=== PATIENT | female | born 1985 | race Caucasian/White ===

== ENCOUNTER 2020-03-15 12:36 | Emergency (ER) | payer MEDICAID, SELFPAY ==
[2020-03-15] VITALS (8 sets, daily range): BP systolic 88–102; BP diastolic 49–71; PULSE 42–67; RESP 12–19; TEMP 36.8; O2SAT 96–100; BMI 18.8
--- NOTE | 2020-03-15 12:49 | ECG_ITS ---
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 Measurements Intervals [place] Rate: 45 P: 52 PA: 120 QRS: 85 QRSD: 85 T: 70 QT: 475 QTc: 414 Interpretive Statements SINUS BRADYCARDIA Compared to ECG 03/05/2018 17:17:50 Sinus rhythm no longer present Electronically Signed On 03-15-2020 21:44:36 CDT by Kathy Lantigua M.D. [id number]
--- NOTE | 2020-03-15 13:09 | ED_ITS ---
HPI - Seizure General: Chief Complaint: Seizure Stated Complaint: SEIZURE Time Seen by Provider: 03/15/20 12:42 History of Present Illness: HPI Narrative: This patient is a 34-year-old female presenting today with a seizure at home. This was witnessed by her f adolfo who is not here with her. She has a history of seizures. She thinks her last one was in December. Since recovering from the seizure today she is got a headache, blurry vision and feels like she is having trouble finding her words. She tells me that she takes gabapentin for her seizures. She has not missed any doses. Her only other medications currently are Suboxone and Xanax. She says she has not run out of anything or stop taking anything. complaint: seizure Onset (ago): unknown Description of Episode: other (Unknown, no witness to the seizure is here) Witnessed: Yes - by Bystander (Mitzi?) Trauma: No Seizure History: Yes Place: Home Possible Precipitating Event: none Associated symptoms: Reports no associated symptoms; Deny chest pain, chills, fever(s) or malaise Review of Systems General: Reports: 10 or more systems reviewed and unremarkable except in HPI and below Const: Denies: fever(s), chills, fatigue or malaise Eyes: Denies: change in vision ENMT: Denies: odynophagia Card: Denies: chest pain or swelling of feet/ankles Resp: Denies: dyspnea, productive cough or non-productive cough GI: Denies: abdominal pain, nausea or vomiting : Denies: flank pain or difficulty voiding Musc: Denies: neck pain or back pain Skin/Breast: Denies: rash Neuro: Denies: headache(s), numbness in extremities or weakness in extremities [place]/Lymph: Denies: easy bruising or easy bleeding PFSH ED PFSH: Medical History Anxiety Depression Seizures Surgical History No pertinent past surgical history Family History (Updated 03/15/20 @ 19:02 by Manisha Martino MD) Mother Psychiatric illness depression Social History (Updated 03/15/20 @ 19:03 by Manisha Martino MD) Smoking and tobacco status: current every day smoker cigarettes Packs smoked per day: 1 Alcohol intake: never Substance/Drug Use: former Household members: significant other Physical Exam Const: COMMON NORMALS: no acute distress, patient oriented x3, no limitations and alert (Sleepy but able to provide history and answer questions.) GENERAL APPEARANCE: cooperative and comfortable HENMT: HEAD & SCALP: normal to inspection FACE & SINUS: normal facial exam Eye: GENERAL EYE: appearance normal, both eyes and all related structures Neck/C-Spine: COMMON NORMALS: supple, no meningeal signs and no JVD Chest: COMMONS NORMALS: normal inspection of the chest Resp: COMMON NORMALS: normal respiratory effort, No use of accessory muscles and clear to auscultation bilaterally AUSCULTATION: clear to auscultation bilaterally Cardio: COMMON NORMALS: no JVD, regular rate, regular rhythm and No murmurs present (Cardio) RATE: regular rate RHYTHM: regular rhythm GI: COMMON NORMALS: Normal to inspection, nondistended, normoactive bowel sounds present, Soft to palpation and non-tender INSPECTION: Yes normal to inspection AUSCULTATION: Yes normoactive bowel sounds PALPATION: Yes Soft to palpation Back/Pelvis: COMMON NORMALS: thoracic and lumbar spine normal to inspection Extremity: COMMON NORMALS: normal to inspection Neuro: COMMON NORMALS: patient oriented x3, moves all extremities, no focal motor deficits and no sensory deficits noted SENSORIUM/ORIENTATION: Yes alert (Sleepy but able to provide history and answer questions.) MENINGEAL SIGNS: Yes no meningeal signs Psych: COMMON NORMALS: mental status grossly normal, cooperative and normal affect Skin: COMMON NORMALS: no rashes or lesions noted and turgor normal GENERAL SKIN EXAM: no rashes or lesions noted and turgor normal Course ED course: Patient continued to complain of not feeling well throughout her ED stay. Her fianc? came and was able to provide further history. She also says that the patient normally can have a seizure and then get up and go to work without any lingering problems or symptoms. When I reviewed the patient's prior records I did not see any evidence of bradycardia or hypotension. This was not responsive to fluids initially and given the patient's feeling terrible and abnormal vital signs I proceeded to consult hospitalist for admission. Dr. Martino was able to find records showing that this bradycardia and hypotension is not that unusual for this patient. She did come and evaluate the patient and offered admission for observation. The patient decided that she wanted to go home and I agree that she is safe to do so. Vital Signs: Vital signs: Vital Signs Temperature 98.2 F 03/15/20 12:48 Pulse Rate 49 L 03/15/20 18:00 Respiratory Rate 19 H 03/15/20 18:00 Blood Pressure 96/49 03/15/20 18:00 Pulse Oximetry 97 03/15/20 18:00 MDM - Seizure Lab Data: Labs: Lab Results 03/15/20 03/15/20 03/15/20 Range/Units 13:13 13:13 13:13 WBC 5.6 (4.0-10.0) 10^3/ uL RBC 4.07 L (4.1-5.3) 10^6/u L Hgb 12.1 (11.5-15.3) g/dL Hct 36.4 L (37.0-47.0) % MCV 89.4 (81-99) fL MCH 29.7 (28.0-34.0) pg MCHC 33.2 (30.0-36.0) g/dL RDW 12.8 (12.1-15.1) % Plt Count 174 (130-400) 10^3/c mm MPV 10.2 (7.4-10.4) fL Neut % (Auto) 40.1 % Lymph % (Auto) 48.6 % [place] % (Auto) 7.0 % Eos % (Auto) 3.8 % Baso % (Auto) 0.5 % Neut # (Auto) 2.22 (1.8-7.7) 10^3/u L Lymph # (Auto) 2.7 (0.8-4.8) 10^3/u L [place] # (Auto) 0.4 (0.2-0.9) 10^3/u L Eos # (Auto) 0.2 (0.0-0.8) 10^3/u L Baso # (Auto) 0.0 (0.0-0.1) 10^3/u L Nucleated RBC % (a uto) 0 % Nucleated RBCs # 0.0 /100WBC Sodium 139 (136-145) mmol/L Potassium 3.6 (3.5-5.1) mmol/L Chloride 107 (98-107) mmol/L Carbon Dioxide 24 (22-29) mmol/L Anion Gap 11.6 (5-19) BUN 11 (6-20) mg/dL Creatinine 0.6 (0.5-0.9) mg/dL GFR Calculation 115.1 (90-130) mL/min Glucose 93 (65-115) mg/dL Calculated Osmolal ity 284 L (285-295) mOsm/k g Lactate 0.7 (0.5-2.2) mmol/L Calcium 8.6 (8.5-10.5) mg/dL Total Bilirubin 0.5 (0.15-1.2) mg/dL AST 23 (0-32) U/L ALT 35 H (0-33) U/L Alkaline Phosphata se 42 (35-105) IU/L Total Protein 6.4 L (6.6-8.7) g/dL Albumin 4.1 (3.5-5.2) g/dL Globulin 2.3 (1.3-4.6) g/dL HCG, Qual (Negative) Urine Color (Yellow) Urine Appearance (CLEAR) Urine pH (5-7) Ur Specific Gravit y (1.005-1.030) Urine Protein (Negative) Urine Glucose (UA) (Normal) Urine Ketones (Negative) Urine Blood (Negative) Urine Nitrate (Negative) Urine Bilirubin (NEGATIVE) Urine Urobilinogen (Negative) mg/dL Ur Leukocyte Ana ase (Negative) Urine RBC (0-2) /hpf Urine WBC (0-5) /hpf Ur Squamous Epith Cells (0-5) Amorphous Sediment Urine Bacteria (NONE) Urine Mucus Salicylates < 0.3 L (3-10) mg/dL Urine Opiates Scre en (Negative) ng/mL Acetaminophen < 5.0 L (10-30) ug/mL Ur Barbiturates Sc reen (Negative) ng/mL Ur Phencyclidine S crn (Negative) ng/mL Ur Amphetamines Sc reen (Negative) ng/mL U Benzodiazepines Scrn (Negative) ng/mL Urine Cocaine Scre en (Negative) ng/mL U Marijuana (THC) Screen (Negative) ng/mL 03/15/20 03/15/20 03/15/20 Range/Units 13:13 13:36 13:36 WBC (4.0-10.0) 10^3/ uL RBC (4.1-5.3) 10^6/u L Hgb (11.5-15.3) g/dL Hct (37.0-47.0) % MCV (81-99) fL MCH (28.0-34.0) pg MCHC (30.0-36.0) g/dL RDW (12.1-15.1) % Plt Count (130-400) 10^3/c mm MPV (7.4-10.4) fL Neut % (Auto) % Lymph % (Auto) % [place] % (Auto) % Eos % (Auto) % Baso % (Auto) % Neut # (Auto) (1.8-7.7) 10^3/u L Lymph # (Auto) (0.8-4.8) 10^3/u L [place] # (Auto) (0.2-0.9) 10^3/u L Eos # (Auto) (0.0-0.8) 10^3/u L Baso # (Auto) (0.0-0.1) 10^3/u L Nucleated RBC % (a uto) % Nucleated RBCs # /100WBC Sodium (136-145) mmol/L Potassium (3.5-5.1) mmol/L Chloride (98-107) mmol/L Carbon Dioxide (22-29) mmol/L Anion Gap (5-19) BUN (6-20) mg/dL Creatinine (0.5-0.9) mg/dL GFR Calculation (90-130) mL/min Glucose (65-115) mg/dL Calculated Osmolal ity (285-295) mOsm/k g Lactate (0.5-2.2) mmol/L Calcium (8.5-10.5) mg/dL Total Bilirubin (0.15-1.2) mg/dL AST (0-32) U/L ALT (0-33) U/L Alkaline Phosphata se (35-105) IU/L Total Protein (6.6-8.7) g/dL Albumin (3.5-5.2) g/dL Globulin (1.3-4.6) g/dL HCG, Qual Negative (Negative) Urine Color Yellow (Yellow) Urine Appearance Clear (CLEAR) Urine pH 6 (5-7) Ur Specific Gravit y 1.015 (1.005-1.030) Urine Protein Neg (Negative) Urine Glucose (UA) Norm (Normal) Urine Ketones Negative (Negative) Urine Blood 2+ H (Negative) Urine Nitrate Negative (Negative) Urine Bilirubin Neg (NEGATIVE) Urine Urobilinogen Norm (Negative) mg/dL Ur Leukocyte Ana ase Negative (Negative) Urine RBC 0-4 H (0-2) /hpf Urine WBC 0-4 H (0-5) /hpf Ur Squamous Epith Cells 0-4 H (0-5) Amorphous Sediment Not Reportable Urine Bacteria Trace (NONE) Urine Mucus Trace Salicylates (3-10) mg/dL Urine Opiates Scre en Negative (Negative) ng/mL Acetaminophen (10-30) ug/mL Ur Barbiturates Sc reen Negative (Negative) ng/mL Ur Phencyclidine S crn Negative (Negative) ng/mL Ur Amphetamines Sc reen Negative (Negative) ng/mL U Benzodiazepines Scrn Positive H (Negative) ng/mL Urine Cocaine Scre en Negative (Negative) ng/mL U Marijuana (THC) Screen Negative (Negative) ng/mL EKG Data^: EKG 1: EKG interpretation date: 03/15/20 EKG interpretation time: 13:12 Interpretation: EKG shows sinus bradycardia with a rate of 45. Normal intervals. Normal axis. No ST changes. Discharge Plan Discharge Patient Disposition: Home Clinical Impression: Generalized seizure, Bradycardia, Acute hypotension Condition: Stable Prescriptions: No Action gabapentin 600 mg Tablet 600 mg PO TID RF: 0 Carafate 1 gram Tablet 1 g PO QID RF: 0 Xanax 0.5 mg Tablet 0.5 mg PO DAILY PRN (Reason: unknown) RF: 0 Suboxone 8-2 mg Film 1 film BUCCAL BID RF: 0 Discharge Orders: Discharge Order (Routine); Ordered 03/15/20 Ordered By: Etelvina Davey Referrals: Wellington Bradley MD [Primary Care Provider] - Discharge Diet: Usual diet Discharge Activity: Resume usual activity Discharge Date/Time: 03/15/20 19:09 Coding Level of Care Code ED Network Diagnostic Support Specialist for Chg Fwd Exam Comprehensive
[2020-03-15 13:26] LABS: Basophils % 0.5 %; Eosinophils # 0.2 10^3/uL (0.0-0.8); Eosinophils % 3.8 %; Hematocrit 36.4 % (37.0-47.0); Hemoglobin 12.1 g/dL (11.5-15.3); Lymphocytes # 2.7 10^3/uL (0.8-4.8); Lymphocytes % 48.6 %; Mean Corpuscular HGB Conc 33.2 g/dL (30.0-36.0); Mean Corpuscular Hemoglobin 29.7 pg (28.0-34.0); Mean Corpuscular Volume 89.4 fL (81-99); Mean Platelet Volume 10.2 fL (7.4-10.4); Monocytes # 0.4 10^3/uL (0.2-0.9); Neutrophils # 2.22 10^3/uL (1.8-7.7); Neutrophils % 40.1 %; Nucleated Red Blood Cells % 0 %; Platelet Count 174 10^3/cmm (130-400); Red Blood Count 4.07 10^6/uL (4.1-5.3); Red Cell Distribution Width 12.8 % (12.1-15.1); White Blood Count 5.6 10^3/uL (4.0-10.0)
[2020-03-15 13:43] LABS: Lactate (Lactic Acid level) 0.7 mmol/L (0.5-2.2)
[2020-03-15 13:44] LABS: Alanine Aminotransferase 35 U/L (0-33); Albumin Level 4.1 g/dL (3.5-5.2); Alkaline Phosphatase 42 IU/L (35-105); Anion Gap 11.6 (5-19); Aspartate Amino Transferase 23 U/L (0-32); Blood Urea Nitrogen 11 mg/dL (6-20); Calcium 8.6 mg/dL (8.5-10.5); Carbon Dioxide 24 mmol/L (22-29); Chloride 107 mmol/L (98-107); Globulin 2.3 g/dL (1.3-4.6); Glomerular Filtration Rate 115.1 mL/min (90-130); Glucose 93 mg/dL (65-115); Osmolality Calculated 284 mOsm/kg (285-295); Potassium 3.6 mmol/L (3.5-5.1); Sodium 139 mmol/L (136-145); Total Bilirubin 0.5 mg/dL (0.15-1.2); Total Protein 6.4 g/dL (6.6-8.7)
[2020-03-15 13:47] LABS: Acetaminophen < 5.0 ug/mL (10-30); Salicylate < 0.3 mg/dL (3-10)
[2020-03-15 13:50] LABS: HCG, Serum Qual Negative (Negative)
[2020-03-15] MEDS: ibuprofen 600 mg Tablet PO (14:25)
[2020-03-15 14:27] LABS: Add Urine Microscopic? YES; Bilirubin Urine Neg (NEGATIVE); Blood Urine 2+ (Negative); Glucose Urine UA Norm (Normal); Ketones Urine Negative (Negative); Leukocyte Esterase Urine Negative (Negative); Nitrate Urine Negative (Negative); Protein Urine Neg (Negative); Specific Gravity, Urine 1.015 (1.005-1.030); Urine Appearance Clear (CLEAR); Urine Color Yellow (Yellow); Urobilinogen Urine Norm (Negative); pH Urine 6 (5-7)
[2020-03-15 14:31] LABS: Add Urine Culture? No; Bacteria Urine TRACE; Mucus Urine TRACE; RBC Urine 0-4 /hpf (0-2); Squamous Epithelial Cell Urine 0-4 (0-5); WBC Urine 0-4 /hpf (0-5)
[2020-03-15] MEDS: sodium chloride 0.9% 1,000 ML 999 ML IV ×2 (15:23→17:53)
--- NOTE | 2020-03-15 16:04 | CTR_ITS ---
PROCEDURE INFORMATION: Exam: CT Head Without Contrast Exam date and time: 03/15/2020 4:07 PM Age: 34 years old Clinical indication: Condition or disease; Convulsions or seizures; Additional info: Seizure, severe headache, left sided weakness TECHNIQUE: Imaging protocol: Computed tomography of the head without contrast. Axial, coronal and sagittal reformatted images were created and reviewed. Radiation optimization: All CT scans at this facility use at least one of these dose optimization techniques: automated exposure control; mA and/or kV adjustment per patient size (includes targeted exams where dose is matched to clinical indication); or iterative reconstruction. COMPARISON: CT head wo con* [id number] 01/15/2019 8:00 PM RADIATION DOSE METRICS: Total DLP (mGy-cm): 724.71 FINDINGS: Brain: No CT evidence of acute intracranial hemorrhage or acute territorial infarction. No significant mass effect or midline shift. Basal cisterns patent. Ventricles: Normal in size and configuration. Bones/joints: No acute osseous abnormality. Sinuses: Minimal ethmoid mucosal thickening. Mastoid air cells: Grossly unremarkable. Soft tissues: Grossly unremarkable. CT/CT head wo con* [id number]: 1[address] No CT evidence of acute intracranial pathology. 2. Additional findings, as above. Radiation Dose CTDIVOL = (mGy): DLP = 724.71 (mGy-cm)
[2020-03-15] MEDS: acetaminophen 500 mg Tablet 1000 MG PO (16:22)
[2020-03-15] MEDS: promethazine 25 mg Tablet PO (16:22)
--- NOTE | 2020-03-15 17:02 | PC.NURSE ---
INFORMED DR. NUNEZ OF BP OF NO FURTHER ORDERS.
[2020-03-15 17:55] LABS: Amphetamines Screen Urine Negative (Negative); Barbiturates Screen Urine Negative (Negative); Benzodiazepines Screen Urine Positive (Negative); Cocaine Screen Urine Negative (Negative); Opiate Screen Urine Negative (Negative); PCP Screen Urine Negative (Negative); THC Screen Urine Negative (Negative)
--- NOTE | 2020-03-15 18:13 | PM.HP ---
Providers/Chief Complaint Admitting Physician: Manisha Martino MD Primary Care Provider: Wellington Bradley MD Chief Complaint: SEIZURE History of Present Illness Tricia Guerra is a 34 year old female with past medical history of seizure disorder, depression/anxiety, methamphetamine abuse, presents accompanied by significant other due to seizure-like activity earlier this morning around 4 AM upon awakening. This was witnessed by girlfriend who is currently at bedside. Patient defers to significant other when asked events that brought her to the ER. Per girlfriend patient was getting up to go to the bathroom when she suddenly stiffened, slowly slumped to the floor, was relatively unresponsive for about 30 to 45 seconds and when she came to was disoriented, extremely slow to respond, unaware of her surroundings, and seemed to be having visual hallucinations. Per girlfriend this has not happened in the past. Girlfriend called patient's sister who is a voluntary side door man who recommended checking her vital signs. Patient was noted to be hypotensive and bradycardic, exact numbers are unknown and she was brought to the ER for further evaluation. Patient states that her last seizure was approximately 2 months ago. It seems that she lost her dog sometime yesterday due to a traumatic accident which may have possibly triggered the seizure today. She has known about her seizures for about 5 years, had been noted to be on Depakote on previous admission which patient states was discontinued for an unknown reason. Her previously been tried on Keppra but due to altered mental status this was discontinued. States that she takes gabapentin for her seizures. Whenever she does have a seizure-like episode episode is very brief, typically consist of stiffening of her limbs, very short postictal and patient is typically back to her normal self in about 30 minutes. While here patient has been hypotensive and bradycardic, has received 1 L normal saline bolus with systolic blood pressure in the 90s. As she has been in the ER for the past several hours she has been gradually returning to her normal self per her admission. Work-up so far has been negative including a normal white count, normal hemoglobin, normal electrolytes, normal renal function. She has not had any further seizure-like activity while here. Thorough review of medical record reveals that she has been noted to be bradycardic and hypotensive in the past and has had cardiac work-up in the past as well including echo, treadmill stress testing, event monitor all of which were unremarkable. She is not on any beta-blockers currently or any oral antihypertensives. She denies having taken any unprescribed medications or illicit substances. Approximately an hour after my evaluation in the ER patient states that she would like to go home. Realizes that she will be leaving AGAINST MEDICAL ADVICE and even after my discussion of possible risks of leaving prematurely she decides to go home, significant other at bedside during this discussion. Counseled on need to seek medical attention immediately should symptoms particularly in terms of seizure-like activity recur. Also recommended close follow-up with her primary care provider. Indra prater discussed potential follow-up with neurology as an outpatient to determine appropriate antiepileptic medication. Review of Systems Const: Reports: fatigue; Denies: fever(s) or chills Eyes: Denies: change in vision ENMT: Reports: dry mouth Card: Denies: chest pain, swelling of feet/ankles or lightheadedness Resp: Denies: dyspnea GI: Denies: abdominal pain, nausea, vomiting, hematemesis or hematochezia : Denies: difficulty voiding, dysuria or hematuria Musc: Denies: back pain Skin/Breast: Denies: rash Neuro: Reports: seizure-like activity (at home); Denies: numbness in extremities, weakness in extremities or difficulty walking Psych: Denies: anxiety Medications/Allergies Home Medications Medication Instructions Recorded Confirmed Last Taken Type alprazolam [Xanax] 0.5 mg PO DAILY PRN 03/15/20 03/15/20 03/14/20 History buprenorphine-naloxone [Suboxone] 1 film BUCCAL BID 03/15/20 03/15/20 03/14/20 History gabapentin 600 mg PO TID 03/15/20 03/15/20 03/15/20 08:00 History sucralfate [Carafate] 1 g PO QID 03/15/20 03/15/20 03/14/20 History Allergies Allergy/AdvReac Type Severity Reaction Status Date / Time morphine Allergy Unknown Verified 03/15/20 13:03 ondansetron [From Zofran] Allergy Unknown Verified 03/15/20 13:03 PFSH Acute PFSH: Medical History Anxiety Depression Seizures Surgical History No pertinent past surgical history Family History (Updated 03/15/20 @ 19:02 by Manisha Martino MD) Mother Psychiatric illness depression Social History (Updated 03/15/20 @ 19:03 by Manisha Martino MD) Smoking and tobacco status: current every day smoker cigarettes Packs smoked per day: 1 Alcohol intake: never Substance/Drug Use: former Household members: significant other Vitals/I&O/Wt Last Vital Signs Temp 98.2 F 03/15/20 12:48 Pulse 49 L 03/15/20 18:00 Resp 19 H 03/15/20 18:00 BP 96/49 03/15/20 18:00 Pulse Ox 97 03/15/20 18:00 Weight last 48 hrs Weight 49.895 kg Physical Exam Const: COMMON NORMALS: no acute distress, patient oriented x3 and alert GENERAL APPEARANCE: cooperative and comfortable NUTRITIONAL APPEARANCE: thin ORIENTATION/CONSCIOUSNESS: Yes awake HENMT: COMMON NORMALS: normocephalic, atraumatic, hearing grossly normal bilaterally and moist oral mucous membranes HEAD & SCALP: normocephalic and atraumatic TEETH & GINGIVA: Yes edentulous Eye: COMMON NORMALS: Equal, round and reactive pupils present, EOMs intact bilaterally and conjunctivae normal CONJUNCTIVA: Yes conjunctivae normal PUPIL: Yes Equal, round and reactive pupils present Neck/C-Spine: COMMON NORMALS: full ROM GENERAL: Yes normal visual inspection and Yes trachea midline Resp: COMMON NORMALS: normal respiratory effort, No retractions, No use of accessory muscles and clear to auscultation bilaterally EFFORT & INSPECTION: Yes able to speak in complete sentences, Yes symmetric chest movement and No tachypneic AUSCULTATION: clear to auscultation bilaterally OTHER: -on RA Cardio: COMMON NORMALS: regular rhythm, S1 normal heart sound present, S2 normal heart sound present and No murmurs present (Cardio) RATE: bradycardic RHYTHM: regular rhythm HEART SOUNDS: S1 normal heart sound present and S2 normal heart sound present GI: COMMON NORMALS: Normal to inspection, nondistended, normoactive bowel sounds present, Soft to palpation and non-tender PALPATION: Yes Soft to palpation Extremity: COMMON NORMALS: normal to inspection, full ROM and no clubbing, cyanosis or edema; negative for no pedal edema Neuro: COMMON NORMALS: patient oriented x3, moves all extremities, no focal motor deficits and no sensory deficits noted Psych: COMMON NORMALS: mental status grossly normal, Normal thought process present, cooperative, normal affect and speech normal SPEECH: Yes normal speech THOUGHT PROCESS: Normal thought process present Skin: COMMON NORMALS: no rashes or lesions noted, no jaundice, no petechiae and no mottling GENERAL SKIN EXAM: no rashes or lesions noted Data : 03/15/20 13:13 03/15/20 13:13 A&P Assessment and plan (1) Generalized seizure: Status: Acute (2) Bradycardia: Status: Acute (3) Acute hypotension: Status: Acute Additional A&P Information Patient was evaluated in the ER with significant other at bedside. Has been noted to be hypotensive with systolic blood pressures as low as 80s and bradycardic in the 40-50 range. She had been hydrated with at least 1.5 L normal saline with noted improvement in her blood pressure. Thorough review of medical record including review of old [facility] hospital records shows that she has been bradycardic and hypotensive in the past. Has had cardiac work-up including Holter monitoring showing sinus rhythm as well as treadmill stress testing which was negative for any significant coronary ischemia, both done in 2013. She has had prior admissions for mental health related issues including SI. Urine drug screen is currently pending, labs are unremarkable including normal hemoglobin, normal electrolytes and normal renal function, no evidence of infection, blood pressure has improved with hydration. Per both patient and significant other at bedside she is acting more like her normal self. Initial plan was for overnight observation to ensure that she has no further seizure-like episodes and monitor hemodynamic status. However about an hour after my initial evaluation in the ER patient reported that she would like to return home, will be leaving AGAINST MEDICAL ADVICE. Returned and counseled patient on need for overnight observation, significant other at bedside, both verbalized understanding but insisted on going home. Counseled on need to seek medical attention immediately should any other seizure-like activity occur. They state that they have blood pressure monitor at home, counseled on need to monitor blood pressure particularly if patient is feeling poorly. Also encourage close follow-up with primary care provider. I have already discussed potential need for neurology evaluation as an outpatient as she has had prior seizure-like activity. She reports that she was unable to tolerate Keppra in the past as it made her crazy, has previously been on Depakote but does not remember why she was taken off of it. States that she takes gabapentin due to seizures. Admits to being on Suboxone due to history of opiate use, documented history of methamphetamine abuse. States that she has been abstinent x 3 months. Attestations Medical Necessity Statement*: Patient left ER AMA Time Spent in Patient Care: Greater than 35 minutes (>than 50% of time spent in counselling and/or direct pt care on unit). Coding Level of Care Code Acute Pie Filling Mixer for Eveling Abdid Diagnoses Generalized seizure R56.9 Bradycardia R00.1 Acute hypotension I95.9
--- NOTE | 2020-03-15 18:45 | PC.NURSE ---
REPORT [facility]
--- NOTE | 2020-03-15 18:54 | PC.NURSE ---
WHILE AT BEDSIDE PT STATES GIRLFRIEND STATES, I DON'T THINK WE WANT TO STAY . ASKED THE PT IF SHE WANTED TO STAY SHE STATED, NO . INFORMED DR. INTERIANO. DR. INTERIANO PRESENTED TO BEDSIDE. VO WITH READBACK FOR SD
[2020-03-16] LABS: Valproic Acid Level 2.8 ug/mL (50-100)
[2020-03-16 01:29] LABS: Lithium 0.1 mmol/L (0.6-1.2)
== END 2020-03-15 19:09 | disposition home or self-care (01) ==
LOC: ER 13:13 → MEDSURG 18:53 → ER 18:54
PROVIDERS: Emergency Provider Emergency Medicine; PCP Family Medicine
DX: G40.89 Other seizures (principal); R00.1 Bradycardia, unspecified; I95.9 Hypotension, unspecified; F17.210 Nicotine dependence, cigarettes, uncomplicated
CPT/HCPCS: 12345; 36415; 70450; 80053; 80164; 80178; 80306; 80307; 81001; 83605; 84703; 85025; 93005; 96360; 96361; 99284; J7030; Q0169

== ENCOUNTER 2020-08-21 16:39 | Emergency (ER) | payer MEDICAID, SELFPAY ==
[2020-08-21 16:51] VITALS: BP 98/65; PULSE 65; RESP 14; TEMP 36.6; O2SAT 97; BMI 24.9
--- NOTE | 2020-08-21 18:22 | XRR_ITS ---
PROCEDURE INFORMATION: Exam: XR Chest, 1 View Exam date and time: 08/21/2020 6:34 PM Age: 35 years old Clinical indication: Dyspnea TECHNIQUE: Imaging protocol: XR of the chest Views: 1 view. COMPARISON: CR Chest 1 [place] [id number] 01/15/2019 8:05 PM FINDINGS: Lungs: Unremarkable. No consolidation. Pleural space: Unremarkable. No pleural effusion. No pneumothorax. Heart/Mediastinum: Unremarkable. No cardiomegaly. Bones/joints: Unremarkable. XR/XR chest 1V portable [id number] IMPRESSION: No acute findings.
--- NOTE | 2020-08-21 18:27 | CTR_ITS ---
PROCEDURE INFORMATION: Exam: CT Head Without Contrast Exam date and time: 08/21/2020 6:34 PM Age: 35 years old Clinical indication: Condition or disease; Convulsions or seizures; Unspecified; Additional info: Seizure TECHNIQUE: Imaging protocol: Computed tomography of the head without contrast. Radiation optimization: All CT scans at this facility use at least one of these dose optimization techniques: automated exposure control; mA and/or kV adjustment per patient size (includes targeted exams where dose is matched to clinical indication); or iterative reconstruction. COMPARISON: CT head wo con* [id number] 03/15/2020 4:23 PM RADIATION DOSE METRICS: Total DLP (mGy-cm): 745.32 FINDINGS: Brain: Normal. No hemorrhage. Unremarkable white matter. No mass effect. Cerebral ventricles: No ventriculomegaly. Bones/joints: Unremarkable. No acute fracture. Paranasal sinuses: Visualized sinuses are unremarkable. No fluid levels. Mastoid air cells: Visualized mastoid air cells are well aerated. Soft tissues: Metallic jewelry in the left frontal soft tissues. CT/CT head wo con* [id number] IMPRESSION: No acute findings. Radiation Dose CTDIVOL = (mGy): DLP = 745.32 (mGy-cm)
[2020-08-21 18:45] LABS: Basophils % 0.5 %; Eosinophils # 0.1 10^3/uL (0.0-0.8); Eosinophils % 2.3 %; Hematocrit 40.3 % (37.0-47.0); Hemoglobin 13.4 g/dL (11.5-15.3); Lymphocytes # 3.1 10^3/uL (0.8-4.8); Lymphocytes % 50.7 %; Mean Corpuscular HGB Conc 33.3 g/dL (30.0-36.0); Mean Corpuscular Hemoglobin 29.6 pg (28.0-34.0); Mean Platelet Volume 9.5 fL (7.4-10.4); Monocytes # 0.4 10^3/uL (0.2-0.9); Monocytes % 7.1 %; Neutrophils # 2.38 10^3/uL (1.8-7.7); Neutrophils % 39.2 %; Nucleated Red Blood Cells % 0 %; Platelet Count 244 10^3/cmm (130-400); Red Blood Count 4.53 10^6/uL (4.1-5.3); Red Cell Distribution Width 12.4 % (12.1-15.1); White Blood Count 6.1 10^3/uL (4.0-10.0)
--- NOTE | 2020-08-21 18:55 | W.ED.HA ---
HPI - Headache General: Chief Complaint: Headache Stated Complaint: SEIZURE @ AROUND 1530, HEADACHE Time Seen by Provider: 08/21/20 18:02 History of Present Illness: HPI Narrative: The patient is a 35-year-old female who comes to the ER complaining of headache and right eye pain. She has a history of seizures. She says she does not have them very often and has tried several medications but has adverse reactions to all of them. Some make her hallucinate or have a slightly allergic reaction to others but she is not sure which ones. She says she takes gabapentin for her seizures. She is not very responsive to questioning and prefers her partner answer questions. Her partner says that she was at home today and began to develop a headache which sometimes means she is about to seize and she began to shake her arms. This is not typical of her normal seizures normally she has a generalized tonic-clonic where her entire body stiffens so she is not sure what happened today but the patient continues to have a headache, right eye pain and tingling in her hands. Sensation is intact. MD elicited complaint: headache Associated symptoms: Deny chest pain, confusion or rash Review of Systems General: Reports: 10 or more systems reviewed and unremarkable except in HPI and below Const: Denies: fatigue Eyes: Denies: change in vision, blurry vision or eye redness ENMT: Denies: throat pain, swelling of lips/tongue, ear or mastoid pain or nasal congestion Card: Denies: chest pain, palpitations, irregular heart rhythm, edema, dyspnea on exertion or orthopnea Resp: Denies: dyspnea, productive cough or non-productive cough GI: Denies: abdominal pain, diarrhea or GI cramping : Denies: flank pain, difficulty voiding, urinary frequency or urinary urgency Musc: Denies: neck pain, back pain, extremity pain, joint pain, joint redness, limited range of motion or muscle weakness Skin/Breast: Denies: rash, pruritus, erythema, skin pain or skin tenderness Neuro: Reports: headache(s); Denies: numbness in extremities, weakness in extremities, sensory changes, difficulty walking, dizziness, confusion or Slurred speech present Psych: Denies: anxiety or depression Endo: Denies: polyuria All/Imm: Denies: urticaria, throat swelling or tongue swelling PFSH ED PFSH: Medical History (Updated 08/21/20 @ 20:37 by Devaughn Wagner MD) Anxiety Depression Seizures Surgical History No pertinent past surgical history Family History (Updated 03/15/20 @ 19:02 by Manisha Martino MD) Mother Psychiatric illness depression Social History (Updated 03/15/20 @ 19:03 by Manisha Martino MD) Smoking and tobacco status: current every day smoker cigarettes Packs smoked per day: 1 Alcohol intake: never Household members: significant other Physical Exam Const: COMMON NORMALS: no acute distress, average body habitus, patient oriented x3, no limitations, healthy appearing, alert and well nourished GENERAL APPEARANCE: cooperative, comfortable, well kempt and well developed ORIENTATION/CONSCIOUSNESS: Yes awake, Yes oriented to person, Yes oriented to place and Yes oriented to time HENMT: COMMON NORMALS: normocephalic, external ears normal and Normal external nose present HEAD & SCALP: normal to inspection and normocephalic NOSE: Normal external nose present EXTERNAL EAR: Yes external ears normal MOUTH: Normal oral and palatal mucosa present THROAT: posterior oropharynx normal Eye: COMMON NORMALS: Equal, round and reactive pupils present and EOMs intact bilaterally GENERAL EYE: appearance normal, both eyes and all related structures PUPIL: Yes Equal, round and reactive pupils present Neck/C-Spine: COMMON NORMALS: full ROM, no lymphadenopathy, no meningeal signs and no JVD GENERAL: Yes normal visual inspection Lymph: LYMPHATIC: no lymphadenopathy noted Chest: COMMONS NORMALS: normal inspection of the chest and normal palpation of entire chest wall Resp: COMMON NORMALS: normal respiratory effort, No retractions, No use of accessory muscles, clear to auscultation bilaterally and percussion normal EFFORT & INSPECTION: Yes able to speak in complete sentences AUSCULTATION: clear to auscultation bilaterally PERCUSSION: percussion normal Cardio: COMMON NORMALS: no JVD, regular rate, regular rhythm, S1 normal heart sound present, S2 normal heart sound present and Peripheral pulses 2+ throughout RATE: regular rate RHYTHM: regular rhythm HEART SOUNDS: S1 normal heart sound present and S2 normal heart sound present PERIPHERAL PULSES: Peripheral pulses 2+ throughout GI: COMMON NORMALS: Normal to inspection, nondistended, normoactive bowel sounds present, Soft to palpation, non-tender and no masses INSPECTION: Yes normal to inspection PALPATION: Yes Soft to palpation : COMMON NORMALS: Yes no CVA tenderness BLADDER/KIDNEY EXAM: Yes no CVA tenderness Back/Pelvis: COMMON NORMALS: no CVA tenderness, thoracic and lumbar spine normal to inspection, no thoracic nor lumbar tenderness and thoraco-lumbar ROM normal Extremity: COMMON NORMALS: normal to inspection, full ROM, capillary refill normal, no joint enlargement and no pedal edema GENERAL: Yes normal exam except as noted Neuro: COMMON NORMALS: patient oriented x3, CN's II-XII intact bilaterally, moves all extremities, no focal motor deficits, no sensory deficits noted and gait normal SENSORIUM/ORIENTATION: Yes alert, Yes oriented to person, Yes oriented to place and Yes oriented to time MENINGEAL SIGNS: Yes no meningeal signs Psych: COMMON NORMALS: mental status grossly normal, Normal thought process present, cooperative, normal affect and speech normal APPEARANCE: Yes well kempt ATTITUDE: Yes calm SPEECH: Yes normal speech THOUGHT PROCESS: Normal thought process present Skin: COMMON NORMALS: no rashes or lesions noted GENERAL SKIN EXAM: no rashes or lesions noted Course Vital Signs: Vital signs: Vital Signs Temperature 97.8 F 08/21/20 16:51 Pulse Rate 62 08/21/20 19:55 Respiratory Rate 17 08/21/20 19:55 Blood Pressure 112/69 08/21/20 19:55 Pulse Oximetry 98 08/21/20 19:55 MDM - Headache MDM Narrative: Medical decision making narrative: Patient is resting comfortably in the ER and improved some after medication. She feels comfortable to sleep it off at home. Return to the ER with worsening symptoms. Follow-up with Dr. Pacheco within a week. Lab Data: Labs: Lab Results 08/21/20 08/21/20 08/21/20 Range/Units 18:42 18:42 18:42 WBC 6.1 (4.0-10.0) 10^3/ uL RBC 4.53 (4.1-5.3) 10^6/u L Hgb 13.4 (11.5-15.3) g/dL Hct 40.3 (37.0-47.0) % MCV 89.0 (81-99) fL MCH 29.6 (28.0-34.0) pg MCHC 33.3 (30.0-36.0) g/dL RDW 12.4 (12.1-15.1) % Plt Count 244 (130-400) 10^3/c mm MPV 9.5 (7.4-10.4) fL Neut % (Auto) 39.2 % Lymph % (Auto) 50.7 % [place] % (Auto) 7.1 % Eos % (Auto) 2.3 % Baso % (Auto) 0.5 % Neut # (Auto) 2.38 (1.8-7.7) 10^3/u L Lymph # (Auto) 3.1 (0.8-4.8) 10^3/u L [place] # (Auto) 0.4 (0.2-0.9) 10^3/u L Eos # (Auto) 0.1 (0.0-0.8) 10^3/u L Baso # (Auto) 0.0 (0.0-0.1) 10^3/u L Nucleated RBC % (a uto) 0 % Nucleated RBCs # 0.0 /100WBC Sodium 140 (136-145) mmol/L Potassium 4.0 (3.5-5.1) mmol/L Chloride 105 (98-107) mmol/L Carbon Dioxide 28 (22-29) mmol/L Anion Gap 11.0 (5-19) BUN 19 (6-20) mg/dL Creatinine 0.9 (0.5-0.9) mg/dL GFR Calculation 71.7 L (90-130) mL/min Glucose 91 (65-115) mg/dL Calculated Osmolal ity 292 (285-295) mOsm/k g Calcium 9.4 (8.5-10.5) mg/dL Total Bilirubin 0.3 (0.15-1.2) mg/dL AST 17 (0-32) U/L ALT 13 (0-33) U/L Alkaline Phosphata se 54 (35-105) IU/L Creatine Kinase 95 (26-192) U/L Total Protein 6.5 L (6.6-8.7) g/dL Albumin 4.0 (3.5-5.2) g/dL Globulin 2.5 (1.3-4.6) g/dL HCG, Qual Negative (Negative) Urine Color (Yellow) Urine Appearance (CLEAR) Urine pH (5-7) Ur Specific Gravit y (1.005-1.030) Urine Protein (Negative) Urine Glucose (UA) (Normal) Urine Ketones (Negative) Urine Blood (Negative) Urine Nitrate (Negative) Urine Bilirubin (Negative) Urine Urobilinogen (Negative) mg/dL Ur Leukocyte Ana ase (Negative) Urine RBC (0-2) /hpf Urine WBC (0-5) /hpf Ur Squamous Epith Cells (0-5) /hpf Amorphous Sediment Urine Bacteria (NONE) /hpf Urine Opiates Scre en (Negative) ng/mL Ur Barbiturates Sc reen (Negative) ng/mL Ur Phencyclidine S crn (Negative) ng/mL Ur Amphetamines Sc reen (Negative) ng/mL U Benzodiazepines Scrn (Negative) ng/mL Urine Cocaine Scre en (Negative) ng/mL U Marijuana (THC) Screen (Negative) ng/mL Ethyl Alcohol < 10 (0-10) mg/dL 08/21/20 08/21/20 Range/Units 19:13 19:13 WBC (4.0-10.0) 10^3/ uL RBC (4.1-5.3) 10^6/u L Hgb (11.5-15.3) g/dL Hct (37.0-47.0) % MCV (81-99) fL MCH (28.0-34.0) pg MCHC (30.0-36.0) g/dL RDW (12.1-15.1) % Plt Count (130-400) 10^3/c mm MPV (7.4-10.4) fL Neut % (Auto) % Lymph % (Auto) % [place] % (Auto) % Eos % (Auto) % Baso % (Auto) % Neut # (Auto) (1.8-7.7) 10^3/u L Lymph # (Auto) (0.8-4.8) 10^3/u L [place] # (Auto) (0.2-0.9) 10^3/u L Eos # (Auto) (0.0-0.8) 10^3/u L Baso # (Auto) (0.0-0.1) 10^3/u L Nucleated RBC % (a uto) % Nucleated RBCs # /100WBC Sodium (136-145) mmol/L Potassium (3.5-5.1) mmol/L Chloride (98-107) mmol/L Carbon Dioxide (22-29) mmol/L Anion Gap (5-19) BUN (6-20) mg/dL Creatinine (0.5-0.9) mg/dL GFR Calculation (90-130) mL/min Glucose (65-115) mg/dL Calculated Osmolal ity (285-295) mOsm/k g Calcium (8.5-10.5) mg/dL Total Bilirubin (0.15-1.2) mg/dL AST (0-32) U/L ALT (0-33) U/L Alkaline Phosphata se (35-105) IU/L Creatine Kinase (26-192) U/L Total Protein (6.6-8.7) g/dL Albumin (3.5-5.2) g/dL Globulin (1.3-4.6) g/dL HCG, Qual (Negative) Urine Color Yellow (Yellow) Urine Appearance Clear (CLEAR) Urine pH 6 (5-7) Ur Specific Gravit y 1.015 (1.005-1.030) Urine Protein Neg (Negative) Urine Glucose (UA) Norm (Normal) Urine Ketones Negative (Negative) Urine Blood 3+ H (Negative) Urine Nitrate Negative (Negative) Urine Bilirubin Neg (Negative) Urine Urobilinogen Norm (Negative) mg/dL Ur Leukocyte Ana ase Negative (Negative) Urine RBC 5-10 H (0-2) /hpf Urine WBC 0-4 H (0-5) /hpf Ur Squamous Epith Cells 15-25 H (0-5) /hpf Amorphous Sediment Not Reportable Urine Bacteria Trace (NONE) /hpf Urine Opiates Scre en Negative (Negative) ng/mL Ur Barbiturates Sc reen Negative (Negative) ng/mL Ur Phencyclidine S crn Negative (Negative) ng/mL Ur Amphetamines Sc reen Negative (Negative) ng/mL U Benzodiazepines Scrn Positive H (Negative) ng/mL Urine Cocaine Scre en Negative (Negative) ng/mL U Marijuana (THC) Screen Negative (Negative) ng/mL Ethyl Alcohol (0-10) mg/dL Discharge Plan Discharge Patient Disposition: Home Clinical Impression: Migraine Condition: Stable Prescriptions: No Action gabapentin 600 mg Tablet 600 mg PO TID RF: 0 Carafate 1 gram Tablet 1 g PO QID RF: 0 Xanax 0.5 mg Tablet 0.5 mg PO DAILY PRN (Reason: unknown) RF: 0 Suboxone 8-2 mg Film 1 film BUCCAL BID RF: 0 Discharge Orders: Discharge ED (Routine); Ordered 08/21/20 Ordered By: Devaughn Wagner Referrals: Wellington Bradley MD [Primary Care Provider] - Discharge Diet: Advance as tolerated Discharge Activity: Resume usual activity Patient Instructions: Acute Headache (ED) Activity Restrictions/Additional Instructions: You likely have a migraine. Your symptoms are not typical of a seizure and your labs and imaging are normal. Please go home and rest and return to the ER with worsening symptoms otherwise follow-up with Dr. Pacheco as an outpatient. Coding Level of Care Code ED Waste Machine Offbearer for Kandi Caballero Exam Comprehensive
[2020-08-21 19:04] LABS: Alanine Aminotransferase 13 U/L (0-33); Alkaline Phosphatase 54 IU/L (35-105); Aspartate Amino Transferase 17 U/L (0-32); Blood Urea Nitrogen 19 mg/dL (6-20); Calcium 9.4 mg/dL (8.5-10.5); Carbon Dioxide 28 mmol/L (22-29); Chloride 105 mmol/L (98-107); Creatine Phosphokinase 95 U/L (26-192); Globulin 2.5 g/dL (1.3-4.6); Glomerular Filtration Rate 71.7 mL/min (90-130); Glucose 91 mg/dL (65-115); HCG, Serum Qual Negative (Negative); Osmolality Calculated 292 mOsm/kg (285-295); Sodium 140 mmol/L (136-145); Total Bilirubin 0.3 mg/dL (0.15-1.2); Total Protein 6.5 g/dL (6.6-8.7)
[2020-08-21 19:08] LABS: Alcohol Level < 10 mg/dL (0-10)
[2020-08-21] MEDS: ketorolac 30 mg/mL INJ 15 MG IVP (19:09)
[2020-08-21] MEDS: diphenhydrAMINE 50 mg/mL SDV 1mL 25 MG IVP (19:09)
[2020-08-21] MEDS: sodium chloride 0.9% 1,000 ML 999 ML IV (19:09)
[2020-08-21 19:28] LABS: Add Urine Microscopic? YES; Bilirubin Urine Neg (Negative); Blood Urine 3+ (Negative); Glucose Urine UA Norm (Normal); Ketones Urine Negative (Negative); Leukocyte Esterase Urine Negative (Negative); Nitrate Urine Negative (Negative); Protein Urine Neg (Negative); Specific Gravity, Urine 1.015 (1.005-1.030); Urine Appearance Clear (CLEAR); Urine Color Yellow (Yellow); Urobilinogen Urine Norm (Negative); pH Urine 6 (5-7)
[2020-08-21 19:34] LABS: Add Urine Culture? No; Bacteria Urine TRACE /hpf; Squamous Epithelial Cell Urine 15-25 /hpf (0-5); WBC Urine 0-4 /hpf (0-5)
[2020-08-21 19:37] LABS: Amphetamines Screen Urine Negative (Negative); Barbiturates Screen Urine Negative (Negative); Benzodiazepines Screen Urine Positive (Negative); Cocaine Screen Urine Negative (Negative); Opiate Screen Urine Negative (Negative); PCP Screen Urine Negative (Negative); THC Screen Urine Negative (Negative)
[2020-08-21 19:55] VITALS: BP 112/69; PULSE 62; RESP 17; O2SAT 98
[2020-08-21 21:29] VITALS: PULSE 64; RESP 16; O2SAT 97
== END 2020-08-21 21:30 | disposition home or self-care (01) ==
PROVIDERS: Emergency Provider Family Medicine; PCP Family Medicine
DX: G43.909 Migraine, unspecified, not intractable, without status migrainosus (principal); F17.210 Nicotine dependence, cigarettes, uncomplicated
CPT/HCPCS: 12345; 70450; 71045; 80053; 80306; 80307; 81001; 82550; 84703; 85025; 96361; 96374; 96375; 99283; J1200; J1885; J7030

== ENCOUNTER 2021-06-28 16:48 | Emergency (ER) | payer MEDICAID, SELFPAY ==
[2021-06-28 17:14] VITALS: BP 107/68; PULSE 66; RESP 18; TEMP 36.7; O2SAT 97; BMI 25.7
--- NOTE | 2021-06-28 19:26 | ED_ITS ---
HPI - Extremity Problem General: Chief complaint: Extremity Injury, Lower Stated complaint: KNEE & GROIN INJURY Time Seen by Provider: 06/28/21 17:10 History of Present Illness: HPI Narrative: Patient is a 36-year-old female comes to the ED with a groin injury. Injury occurred yesterday. She says she was using a chain saw and it kicked back and the handle on but of the chainsaw struck her groin region. Denies any laceration or injury from chainsaw blade. D enies any laceration to more external genitalia. She was having some pain and soreness in her groin afterwards and then approximately an hour later started having some light vaginal bleeding. It then progressed to a little more heavy bleeding through the night and into today. Patient says she has not had a period in 3 years. Over the past day she has only went through a couple pads. She says she feels sore down in her genital region and sitting down is uncomfortable. She rates her pain a 5 out of 10. Endorses some dysuria since injury but denies any other symptoms. Associated symptoms: Deny chest pain, fever(s) or rash Review of Systems Const: Denies: fever(s), chills or fatigue Eyes: Denies: change in vision or eye discomfort ENMT: Denies: throat pain, odynophagia, nasal discharge or nasal congestion Card: Denies: chest pain, palpitations, edema, swelling of feet/ankles, dyspnea on exertion or orthopnea Resp: Denies: dyspnea, productive cough or non-productive cough GI: Denies: abdominal pain, nausea, vomiting, diarrhea, constipation or hematochezia : Reports: dysuria, vaginal bleeding and pelvic pain (trauma injury causing pain); Denies: flank pain or hematuria Musc: Denies: neck pain, back pain or extremity swelling Skin/Breast: Denies: rash or new lesions Neuro: Denies: headache(s), numbness in extremities or weakness in extremities PFSH ED PFSH: Medical History Anxiety Depression Seizures Surgical History No pertinent past surgical history Family History Mother Psychiatric illness depression Social History Smoking and tobacco status: current every day smoker cigarettes Packs smoked per day: 1 Alcohol intake: never Household members: significant other Physical Exam Const: COMMON NORMALS: no acute distress, patient oriented x3 and alert GENERAL APPEARANCE: cooperative and comfortable HENMT: COMMON NORMALS: normocephalic HEAD & SCALP: normocephalic MOUTH: Normal oral and palatal mucosa present THROAT: posterior oropharynx normal and uvula midline Neck/C-Spine: COMMON NORMALS: supple GENERAL: Yes normal visual inspection Resp: COMMON NORMALS: normal respiratory effort, No retractions, No use of accessory muscles and clear to auscultation bilaterally AUSCULTATION: clear to auscultation bilaterally Cardio: COMMON NORMALS: regular rate, regular rhythm, S1 normal heart sound present, S2 normal heart sound present, No gallops present (Cardio), No clicks present (Cardio), No murmurs present (Cardio) and Peripheral pulses 2+ throughout RATE: regular rate RHYTHM: regular rhythm HEART SOUNDS: S1 normal heart sound present and S2 normal heart sound present PERIPHERAL PULSES: Peripheral pulses 2+ throughout GI: COMMON NORMALS: Normal to inspection, nondistended, normoactive bowel sounds present, Soft to palpation, non-tender and no masses PALPATION: Yes Soft to palpation : COMMON NORMALS: Yes no CVA tenderness BLADDER/KIDNEY EXAM: Yes no CVA tenderness OTHER: I offered to do a pelvic exam on patient. She states she has PTSD and would feel more comfortable having her primary care doctor perform pelvic. Back/Pelvis: COMMON NORMALS: no CVA tenderness Extremity: COMMON NORMALS: normal to inspection Neuro: COMMON NORMALS: patient oriented x3 and moves all extremities SENSORIUM/ORIENTATION: Yes alert Skin: GENERAL SKIN EXAM: dry skin Course Reevaluation(s): Reevaluation #1: Patient says her pain is doing better and vaginal bleeding is now very light. Patient says she has some PTSD and would prefer not to get a pelvic exam here today it would like to do it at her primary care doctor's office. Since patient is stable, vaginal bleeding is very light and CT scan was good, I told patient I am good with her following up with her PCP in the next 2 to 3 days to be reexamined. Patient felt more comfortable with this option and she agreed with plan. Time: 21:36 Vital Signs: Vital signs: Vital Signs Temperature 98.0 F 06/28/21 17:14 Pulse Rate 78 06/28/21 22:15 Respiratory Rate 18 06/28/21 22:15 Blood Pressure 107/67 06/28/21 22:15 Pulse Oximetry 98 06/28/21 22:15 MDM - Extremity (Nontraumatic) MDM Narrative: Medical decision making narrative: Patient is a 36-year-old female comes to the ED after injury to the pelvic region. Injury occurred yesterday. Patient was using a chain saw and it kicked back causing the handle of the chainsaw to hit pelvic region. The chainsaw blade did not contact patient and she had no cuts or lacerations. She reports having some pain in her groin/pelvic region. She started developing some vaginal bleeding. Vaginal bleeding was heavier last night but has slowly tapered down and is light currently. She says she is only went through couple pads total today. Denies any lacerations to pelvic region or genitalia. Vitals stable. Patient appears in no acute distress. Exam was benign. I offered to do a pelvic exam on patient but she told me she has PTSD and refused a pelvic and said she would prefer to have her PCP perform pelvic exam. Labs were unremarkable. CT of pelvis showed no acute findings. Since CT of pelvis was normal, bleeding is light, I told patient that if she follows up with her PCP in the next 48 hours to be reexamined and PCP can perform pelvic exam, I am okay with that option. Eddi perez was diagnosed with a contusion of pelvic region discharged home with a prescription for ibuprofen 800 mg tablets. She was told to follow-up with her PCP to be reevaluated in the next 48 hours. Return to ED precautions given. Patient understood and agreed with plan. Lab Data: Attestation: I reviewed the patient's lab results. Labs: Lab Results 06/28/21 06/28/21 06/28/21 20:00 20:00 20:00 WBC 8.2 10^3/uL 10^3/ uL (4.0-10.0) RBC 4.58 10^6/uL 10^6 /uL (4.1-5.3) Hgb 14.1 g/dL g/dL (11.5-15.3) Hct 41.5 % % (37.0-47.0) MCV 90.6 fl fl (81-99) MCH 30.8 pg pg (28.0-34.0) MCHC 34.0 g/dL g/dL (30.0-36.0) RDW 13.4 % % (12.1-15.1) Plt Count 178 10^3/cmm 10^3 /cmm (130-400) MPV 11.0 fL H fL (7.4-10.4) Neut % (Auto) 43.8 % % Lymph % (Auto) 47.4 % % [place] % (Auto) 5.8 % % Eos % (Auto) 2.6 % % Baso % (Auto) 0.2 % % Neut # (Auto) 3.59 10^3/uL 10^3 /uL (1.8-7.7) Lymph # (Auto) 3.9 10^3/uL 10^3/ uL (0.8-4.8) [place]ney # (Auto) 0.5 10^3/uL 10^3/ uL (0.2-0.9) Eos # (Auto) 0.2 10^3/uL 10^3/ uL (0.0-0.8) Baso # (Auto) 0.0 10^3/uL 10^3/ uL (0.0-0.1) Nucleated RBC % (a uto) 0 % % Nucleated RBCs # 0.0 /100WBC /100W BC Sodium 139 mmol/L mmol/L (136-145) Potassium 4.0 mmol/L mmol/L (3.5-5.1) Chloride 104 mmol/L mmol/L (98-107) Carbon Dioxide 22 mmol/L mmol/L (22-29) Anion Gap 17.0 (5-19) BUN 12 mg/dL mg/dL (6-20) Creatinine 0.6 mg/dL mg/dL (0.5-0.9) GFR Calculation 113.8 mL/min mL/m in (90-130) Glucose 80 mg/dL mg/dL (65-115) Calculated Osmolal ity 287 mOsm/kg mOsm/ kg (285-295) Calcium 8.5 mg/dL mg/dL (8.5-10.5) Total Bilirubin 0.3 mg/dL mg/dL (0.15-1.2) AST 32 U/L U/L (0-32) ALT 35 U/L H U/L (0-33) Alkaline Phosphata se 62 IU/L IU/L (35-105) Total Protein 7.1 g/dL g/dL (6.6-8.7) Albumin 4.4 g/dL g/dL (3.5-5.2) Globulin 2.7 g/dL g/dL (1.3-4.6) HCG, Qual Negative (Negative) Imaging Data^: Other CT: Attestation: I personally reviewed and interpreted this imaging study as follows: Radiologist's impression: [facility] [address] [address] Scan Report Signed Patient: Tricia Guerra Unit #: [id number] : 1985 Age/Sex: 36 / F ADM Date: Loc: ER Room/Bed: Attending Dr: Ordering Provider/Ordering MD: Ashvin Phelps Date of Service: 06/28/21 Procedure(s): CT abdomen pelvis w con* [id number] Accession Number(s): [id number] Report Number: [id number] PROCEDURE INFORMATION: Exam: CT Abdomen And Pelvis With Contrast Exam date and time: 06/28/2021 7:33 PM Age: 36 years old Clinical indication: Injury or trauma; Other: Chainsaw kicked back and hit patient in the groin. Vaginal bleeding; Blunt; Lower; Prior surgery; Surgery type: , appy; Additional info: Impact injury to groin, vaginal bleeding TECHNIQUE: Imaging protocol: Computed tomography of the abdomen and pelvis with contrast. Radiation optimization: All CT scans at this facility use at least one of these dose optimization techniques: automated exposure control; mA and/or kV adjustment per patient size (includes targeted exams where dose is matched to clinical indication); or iterative reconstruction. Contrast material: OMNI 300; Contrast volume: 95 ml; Contrast route: INTRAVENOUS (IV); COMPARISON: CR Hip 2-3v RIGHT wwo Pelv* [id number] 11/22/2017 7:40 PM RADIATION DOSE METRICS: Total DLP (mGy-cm): 1302.01 FINDINGS: Liver: Normal. No mass. Gallbladder and bile ducts: Normal. No calcified stones. No ductal dilation. Pancreas: Normal. No ductal dilation. Spleen: Normal. No splenomegaly. Adrenal glands: Normal. No mass. Kidneys and ureters: Normal. No hydronephrosis. Stomach and bowel: Unremarkable. No obstruction. No mucosal thickening. Appendix: No evidence of appendicitis. Intraperitoneal space: Trace pelvic free fluid. No free intraperitoneal air. Vasculature: Unremarkable. No abdominal aortic aneurysm. Lymph nodes: Unremarkable. No enlarged lymph nodes. Urinary bladder: Unremarkable as visualized. Reproductive: Large simple appearing follicle left ovary 2.7 cm diameter. Unremarkable uterus. Unremarkable right adnexa. Bones/joints: Unremarkable. No acute fracture. Soft tissues: Unremarkable. CT/CT abdomen pelvis w con* [id number] IMPRESSION: Negative for acute intra-abdominal pathology. Radiation Dose CTDIVOL = (mGy): DLP = 1302.01 (mGy-cm) Dictated By: Layo Garland Signed By: Layo Garland Signed Date/Time: 06/28/212125 DD/ 32 Discharge Plan Discharge Patient Disposition: Home Clinical Impression: Contusion of pelvic region Qualifiers: Encounter type: initial encounter Qualified Code(s): S30.0XXA - Contusion of lower back and pelvis, initial encounter Condition: Stable Prescriptions: New ibuprofen 800 mg tablet 800 mg PO Q8H PRN (Reason: pain) Qty: 20 RF: 0 No Action gabapentin 600 mg Tablet 600 mg PO TID RF: 0 Carafate 1 gram Tablet 1 g PO QID RF: 0 Xanax 0.5 mg Tablet 0.5 mg PO DAILY PRN (Reason: unknown) RF: 0 Suboxone 8-2 mg Film 1 film BUCCAL BID RF: 0 Discharge Orders: Discharge ED (Routine); Ordered 06/28/21 Ordered By: Ashvin Phelps Referrals: Wellington Bradley MD [Primary Care Provider] - Discharge Diet: Regular Discharge Activity: Increase activity as tolerated Patient Instructions: Contusion in Adults (ED) Activity Restrictions/Additional Instructions: Follow-up with medical provider as directed in 2 to 3 days to be reexamined. Take medications as prescribed. Apply cold pack on sore area to help with symptoms. Return to the ER or your medical provider if condition worsens. Please read and understand discharge instructions. Thank you for choosing [facility] for your healthcare needs today. Please realize this is an emergency room and that we are providing you with a medical screening exam and this may not be complete and all inclusive of all the testing and or work up that you may need to determine your ailment or severity of your illness. It is very important that you follow up as instructed or that you return to the Emergency Department should you have concerns or if your condition changes or worsens in any way. Coding Level of Care Code ED Retort Setter for Kandi Fwkatelynn Exam Comprehensive
--- NOTE | 2021-06-28 19:33 | CTR_ITS ---
PROCEDURE INFORMATION: Exam: CT Abdomen And Pelvis With Contrast Exam date and time: 06/28/2021 7:33 PM Age: 36 years old Clinical indication: Injury or trauma; Other: Chainsaw kicked back and hit patient in the groin. Vaginal bleeding; Blunt; Lower; Prior surgery; Surgery type: , appy; Additional info: Impact injury to groin, vaginal bleeding TECHNIQUE: Imaging protocol: Computed tomography of the abdomen and pelvis with contrast. Radiation optimization: All CT scans at this facility use at least one of these dose optimization techniques: automated exposure control; mA and/or kV adjustment per patient size (includes targeted exams where dose is matched to clinical indication); or iterative reconstruction. Contrast material: OMNI 300; Contrast volume: 95 ml; Contrast route: INTRAVENOUS (IV); COMPARISON: CR Hip 2-3v RIGHT wwo Pelv* [id number] 11/22/2017 7:40 PM RADIATION DOSE METRICS: Total DLP (mGy-cm): 1302.01 FINDINGS: Liver: Normal. No mass. Gallbladder and bile ducts: Normal. No calcified stones. No ductal dilation. Pancreas: Normal. No ductal dilation. Spleen: Normal. No splenomegaly. Adrenal glands: Normal. No mass. Kidneys and ureters: Normal. No hydronephrosis. Stomach and bowel: Unremarkable. No obstruction. No mucosal thickening. Appendix: No evidence of appendicitis. Intraperitoneal space: Trace pelvic free fluid. No free intraperitoneal air. Vasculature: Unremarkable. No abdominal aortic aneurysm. Lymph nodes: Unremarkable. No enlarged lymph nodes. Urinary bladder: Unremarkable as visualized. Reproductive: Large simple appearing follicle left ovary 2.7 cm diameter. Unremarkable uterus. Unremarkable right adnexa. Bones/joints: Unremarkable. No acute fracture. Soft tissues: Unremarkable. CT/CT abdomen pelvis w con* [id number] IMPRESSION: Negative for acute intra-abdominal pathology. Radiation Dose CTDIVOL = (mGy): DLP = 1302.01 (mGy-cm)
[2021-06-28] MEDS: ketorolac 30 mg/mL INJ IVP (20:15)
[2021-06-28] MEDS: sodium chloride 0.9% 500 ML 999 ML IV (20:16)
[2021-06-28 20:44] LABS: Basophils % 0.2 %; Eosinophils # 0.2 10^3/uL (0.0-0.8); Eosinophils % 2.6 %; Hematocrit 41.5 % (37.0-47.0); Hemoglobin 14.1 g/dL (11.5-15.3); Lymphocytes # 3.9 10^3/uL (0.8-4.8); Lymphocytes % 47.4 %; Mean Corpuscular Hemoglobin 30.8 pg (28.0-34.0); Mean Corpuscular Volume 90.6 fl (81-99); Monocytes # 0.5 10^3/uL (0.2-0.9); Monocytes % 5.8 %; Neutrophils # 3.59 10^3/uL (1.8-7.7); Neutrophils % 43.8 %; Nucleated Red Blood Cells % 0 %; Platelet Count 178 10^3/cmm (130-400); Red Blood Count 4.58 10^6/uL (4.1-5.3); Red Cell Distribution Width 13.4 % (12.1-15.1); White Blood Count 8.2 10^3/uL (4.0-10.0)
[2021-06-28 20:56] LABS: HCG, Serum Qual Negative (Negative)
[2021-06-28] MEDS: iohexol 300 mg/mL 100 mL Btl IV (21:00)
[2021-06-28 21:40] LABS: Slide Review Slide Review Perform
[2021-06-28 21:41] LABS: Alanine Aminotransferase 35 U/L (0-33); Alkaline Phosphatase 62 IU/L (35-105); Blood Urea Nitrogen 12 mg/dL (6-20); Calcium 8.5 mg/dL (8.5-10.5); Carbon Dioxide 22 mmol/L (22-29); Glomerular Filtration Rate 113.8 mL/min (90-130); Glucose 80 mg/dL (65-115); Total Bilirubin 0.3 mg/dL (0.15-1.2); Total Protein 7.1 g/dL (6.6-8.7)
[2021-06-28 22:06] LABS: Albumin Level 4.4 g/dL (3.5-5.2); Chloride 104 mmol/L (98-107); Globulin 2.7 g/dL (1.3-4.6); Osmolality Calculated 287 mOsm/kg (285-295); Sodium 139 mmol/L (136-145)
[2021-06-28 22:07] LABS: Aspartate Amino Transferase 32 U/L (0-32)
[2021-06-28 22:15] VITALS: BP 107/67; PULSE 78; RESP 18; O2SAT 98
== END 2021-06-28 22:17 | disposition home or self-care (01) ==
PROVIDERS: Emergency Provider Physician Assistant; PCP Family Medicine
DX: S30.0XXA Contusion of lower back and pelvis, initial encounter (principal); F17.210 Nicotine dependence, cigarettes, uncomplicated; W20.8XXA Other cause of strike by thrown, projected or falling object, initial encounter
CPT/HCPCS: 74177; 80053; 84703; 85025; 96374; 99283; J1885; J7040; Q9967

== ENCOUNTER 2022-07-12 22:16 | Emergency (ER) | payer MEDICAID, SELFPAY ==
--- NOTE | 2022-07-12 22:22 | XRR_ITS ---
PROCEDURE INFORMATION: Exam: XR Right Hand Exam date and time: 07/12/2022 10:34 PM Age: 37 years old Clinical indication: Pain; Hand; Right; Additional info: Injury TECHNIQUE: Imaging protocol: Radiologic exam of the Right hand. Views: 3 or more views. COMPARISON: No relevant prior studies available. FINDINGS: Bones/joints: Normal. Soft tissues: Normal. XR/XR hand RT min 3V* [id number] IMPRESSION: No acute findings.
[2022-07-12 22:23] VITALS: BP 93/60; PULSE 67; RESP 16; TEMP 36.7; O2SAT 96; BMI 26.9
--- NOTE | 2022-07-12 23:42 | W.ED.EXTPRO ---
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 Associated symptoms: Deny chest pain, fever(s) or rash Review of Systems Const: Denies: fever(s), chills, body aches or change in appetite Eyes: Denies: blurry vision or eye discomfort ENMT: Denies: throat pain or dental pain Card: Denies: chest pain Resp: Denies: dyspnea GI: Denies: abdominal pain, nausea, vomiting or diarrhea : Denies: dysuria Musc: Denies: neck pain or back pain Skin/Breast: Denies: rash Neuro: Denies: headache(s) Psych: Denies: depression [place]/Lymph: Denies: easy bruising All/Imm: Denies: urticaria PFSH ED PFSH: Medical History Anxiety Depression Seizures Surgical History No pertinent past surgical history Family History Mother Psychiatric illness depression Social History Smoking and tobacco status: current every day smoker cigarettes Packs smoked per day: 1 Alcohol intake: never Household members: significant other Physical Exam Const: COMMON NORMALS: no acute distress and patient oriented x3 HENMT: COMMON NORMALS: normocephalic and atraumatic HEAD & SCALP: normocephalic and atraumatic Eye: COMMON NORMALS: conjunctivae normal CONJUNCTIVA: Yes conjunctivae normal Neck/C-Spine: COMMON NORMALS: full ROM Chest: COMMONS NORMALS: normal inspection of the chest Resp: COMMON NORMALS: normal respiratory effort Cardio: COMMON NORMALS: regular rate RATE: regular rate GI: INSPECTION: Yes normal to inspection Extremity: OTHER: Contusion along with some tenderness over right hand no obvious deformity able to have full range of motion Neuro: COMMON NORMALS: patient oriented x3 Psych: COMMON NORMALS: mental status grossly normal Skin: COMMON NORMALS: no rashes or lesions noted GENERAL SKIN EXAM: no rashes or lesions noted Course Vital Signs: Vital signs: Vital Signs Temperature 98.1 F 07/12/22 22:23 Pulse Rate 67 07/12/22 22:23 Respiratory Rate 16 07/12/22 22:23 Blood Pressure 93/60 07/12/22 22:23 Pulse Oximetry 96 07/12/22 22:23 Oxygen Delivery Me thod 07/12/22 22:23 MDM - Extremity (Nontraumatic) Medical Decision Making Patient presents with a hand contusion x-ray shows no fractures her exam here is benign she is stable for discharge she is to follow-up PCP and return if worsening. Lab Data Radiology Impressions Hand X-Ray 07/12/22 22:22 IMPRESSION: No acute findings. Discharge Plan Discharge Patient Disposition: Home Clinical Impression: Contusion of hand(s) Condition: Stable Prescriptions: New naproxen [Naprosyn] 500 mg tablet 500 mg PO BID PRN (Reason: pain) Qty: 20 0RF No Action gabapentin 600 mg Tablet 600 mg PO TID Carafate 1 gram Tablet 1 g PO QID Xanax 0.5 mg Tablet 0.5 mg PO DAILY PRN (Reason: unknown) Suboxone 8-2 mg Film 1 film BUCCAL BID ibuprofen 800 mg tablet 800 mg PO Q8H PRN (Reason: pain) Qty: 20 0RF Discharge Orders: Discharge ED (Routine); Ordered 07/12/22 Ordered By: Sarahi Lemus Discharge Diet: Advance as tolerated Discharge Activity: Resume usual activity Patient Instructions: Contusion in Adults (ED) Coding Level of Care Code ED 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
[2022-07-12 23:43] VITALS: BP 120/65; PULSE 67; RESP 20; TEMP 36.7; O2SAT 96
[2022-07-12] MEDS: naproxen 500 mg Tablet PO (23:55)
== END 2022-07-13 00:08 | disposition home or self-care (01) ==
PROVIDERS: Emergency Provider Emergency Medicine
DX: S60.221A Contusion of right hand, initial encounter (principal); W20.8XXA Other cause of strike by thrown, projected or falling object, initial encounter; Y92.89 Other specified places as the place of occurrence of the external cause
CPT/HCPCS: 73130; 99283

== ENCOUNTER → 2022-11-28 08:55 | Outpatient (BNVA) | payer MEDICAID, SELFPAY | PROVIDERS: PCP Nurse Practitioner Family; Visit Provider Nurse Practitioner Family | DX: R56.9 Unspecified convulsions (principal); F32.9 Major depressive disorder, single episode, unspecified; F41.9 Anxiety disorder, unspecified | CPT/HCPCS: 80053; 80061; 84443 ==

== ENCOUNTER → 2023-02-28 16:28 | Outpatient (BNVA) | payer MEDICAID, SELFPAY | PROVIDERS: PCP Nurse Practitioner Family; Visit Provider Nurse Practitioner Family | DX: N91.1 Secondary amenorrhea (principal) | CPT/HCPCS: 84702 ==

== ENCOUNTER 2023-05-03 16:30 | Observation (INO) | payer SELFPAY ==
[2023-05-03 16:32] VITALS: BP 115/62; PULSE 58; RESP 18; TEMP 36.8; O2SAT 96
[2023-05-03 17:00] VITALS: BP 115/62; PULSE 56; RESP 16; O2SAT 100
--- NOTE | 2023-05-03 17:04 | XRR_ITS ---
PROCEDURE INFORMATION: Exam: XR Chest Exam date and time: 05/03/2023 5:28 PM Age: 37 years old Clinical indication: Other: Vomiting; Other: Chest pain; Additional info: Dyspnea/cough TECHNIQUE: Imaging protocol: Radiologic exam of the chest. Views: 1 view. COMPARISON: CR XR chest 1V portable [id number] 08/21/2020 6:35 PM FINDINGS: Lungs: Unremarkable. No consolidation. Pleural spaces: Unremarkable. No pleural effusion. No pneumothorax. Heart/Mediastinum: Unremarkable. No cardiomegaly. Bones/joints: Unremarkable. XR/XR chest 1V portable [id number] IMPRESSION: No acute findings.
--- NOTE | 2023-05-03 17:04 | ECG_ITS ---
[facility] Test Date: 2023-05-03 Pat Name: Tricia Guerra Department: Room: Gender: Female Umbrella Tipper Hand: : 1985 Requested By: Frederick Amos Order Number: [id number] Reina MD: Laith Chaidez M.D. Measurements Intervals [place] Rate: 50 P: 36 ME: 126 QRS: -7 QRSD: 81 T: 16 QT: 441 QTc: 402 Interpretive Statements SINUS BRADYCARDIA MODERATE VOLTAGE CRITERIA FOR LVH, CONSIDER NORMAL VARIANT [MEETS CRITERIA IN ONE OF: R(aVL), S(V1), R(V5), R(V5/V6)+S(V1)] Compared to ECG 03/15/2020 13:07:57 No significant changes Electronically Signed On 05-04-2023 7:12:09 CDT by Laith Chaidez M.D. [id number]
--- NOTE | 2023-05-03 17:08 | W.ED.SEIZURE ---
Documented by User: Frederick Smith DO 05/04/23 06:33 HPI - Seizure General: Chief Complaint: Seizure Stated Complaint: seizures Time Seen by Provider: 05/03/23 16:31 Source: patient Mode of arrival: EMS History of Present Illness: HPI Narrative: 37-year-old female presents emergency room complaining of a episode. She thought she possibly had a seizure. She had shaking movements and then became unresponsive. Patient family and bystanders thought she had no pulse or respirations and started CPR. They stated they continued CPR for around 6 minutes. Family confirmed they performed both compressions and rescue breathing. She is complaining some chest discomfort at this time. Family reports they did not see what looked like seizure activity to them just her having a tremor and then becoming unresponsive. She does states she has had sei in talking the patient she cannot remember a lot of the details immediately prior after this episode. She had another episode similar to yesterday. Zures in the past she has not seen neurology ever. She is on gabapentin for the last several years no other medications for seizures. MD complaint: possible seizure Onset (ago): minute(s) Description of Episode: loss of consciousness Seizure History: Yes (pt has 5-6 year seizure hx) Place: in car Associated symptoms: Reports chest pain, confusion and syncope; Deny chills, fever(s) or malaise Review of Systems Const: Denies: fever(s), chills, fatigue or malaise Card: Reports: chest pain, lightheadedness and syncope Resp: Denies: dyspnea, productive cough or non-productive cough GI: Denies: abdominal pain, nausea, vomiting, hematemesis, coffee ground emesis, diarrhea, constipation, bloating, hematochezia or melena : Denies: flank pain, difficulty voiding, dysuria, urinary frequency or urinary urgency Skin/Breast: Denies: rash or pruritus Neuro: Reports: confusion PFSH ED PFSH: Medical History Anxiety Depression Seizures Surgical History No pertinent past surgical history Family History Mother Psychiatric illness depression Social History Smoking and tobacco status: current every day smoker cigarettes Packs smoked per day: 1 Alcohol intake: never Substance/Drug Use: former Household members: significant other Do you think of yourself as: Lesbian/Palmer/Homosexual Physical Exam Const: GENERAL APPEARANCE: cooperative and comfortable ORIENTATION/CONSCIOUSNESS: Yes awake, Yes oriented to person, Yes oriented to place and Yes oriented to time HENMT: COMMON NORMALS: normocephalic, atraumatic and hearing grossly normal bilaterally HEAD & SCALP: normocephalic and atraumatic Resp: COMMON NORMALS: normal respiratory effort, No retractions, No use of accessory muscles and clear to auscultation bilaterally AUSCULTATION: clear to auscultation bilaterally Cardio: COMMON NORMALS: regular rate, regular rhythm and No murmurs present (Cardio) RATE: regular rate RHYTHM: regular rhythm GI: COMMON NORMALS: Soft to palpation and No hepatosplenomegaly present AUSCULTATION: Yes normoactive bowel sounds PALPATION: Yes Soft to palpation, No Tenderness to palpation present (GI), No Guarding due to palpation present (GI) and Yes No hepatosplenomegaly present Extremity: COMMON NORMALS: normal to inspection, capillary refill normal, no clubbing, cyanosis or edema, no calf tenderness and no pedal edema Neuro: SENSORIUM/ORIENTATION: Yes oriented to person, Yes oriented to place and Yes oriented to time Skin: COMMON NORMALS: no rashes or lesions noted GENERAL SKIN EXAM: no rashes or lesions noted Course Vital Signs: Vital signs: Vital Signs Temperature 97.5 F L 05/04/23 03:48 Pulse Rate 56 L 05/04/23 03:48 Respiratory Rate 13 05/04/23 03:48 Blood Pressure 97/63 05/04/23 03:48 Pulse Oximetry 97 05/04/23 03:48 Oxygen Delivery Me thod Room Air 05/04/23 03:48 MDM - Seizure MDM Narrative Medical decision making narrative: Care signed out to Dr. Dodd at change of shift. See final notes for diagnosis and disposition. 37-year-old female checked out to me at shift change by Dr. Connolly. This lady had had a period of unresponsiveness lasting up to 7 minutes. She received chest compressions and rescue breathing evidently during this time. She has been bradycardic around 50on the monitor. EKG shows sinus bradycardia with a rate of 50. Novice and intervals are normal otherwise. She does have met LVH criteria. No acute ST changes. No Q waves. Chest x-ray is negative. First troponin is normal. Other laboratory work is normal. As the patient's heart rate is low, she appeared to have a syncopal episode with a period of unresponsiveness, she will be observed on telemetry. Hospitalist agrees to admission. He will evaluate. Lab Data 05/04/23 04:38 05/04/23 04:38 Labs: Radiology Impressions Chest X-Ray 05/03/23 17:04 IMPRESSION: No acute findings. Head CT 05/03/23 17:53 IMPRESSION: No acute intracranial abnormality. Chest CTA 05/03/23 23:30 IMPRESSION: 1. No pulmonary embolism. No pneumothorax. 2. Mild ground-glass opacity right lower lobe. 3. Splenomegaly Laboratory Results WBC 7.42 10^3/uL (3.29-11.43) 05/03/23 17:20 RBC 4.83 10^6/uL (3.85-5.65) 05/03/23 17:20 Hgb 14.60 g/dL (11.27-16.99) 05/03/23 17:20 Hct 43.7 % (36-47) 05/03/23 17:20 MCV 90.5 fl (85-98) 05/03/23 17:20 MCH 30.2 pg (27-33) 05/03/23 17:20 MCHC 33.4 g/dL (30-55) 05/03/23 17:20 RDW 13.0 % (12.1-15.1) 05/03/23 17:20 Plt Count 248 10^3/cmm (157-399) 05/03/23 17:20 MPV 9.8 fL (7.4-10.4) 05/03/23 17:20 Neut % (Auto) 42.9 % 05/03/23 17:20 Lymph % (Auto) 48.5 % 05/03/23 17:20 [place] % (Auto) 5.9 % 05/03/23 17:20 Eos % (Auto) 2.0 % 05/03/23 17:20 Baso % (Auto) 0.3 % 05/03/23 17:20 Neut # (Auto) 3.18 10^3/uL (1.8-7.7) 05/03/23 17:20 Lymph # (Auto) 3.6 10^3/uL (0.8-4.8) 05/03/23 17:20 [place] # (Auto) 0.4 10^3/uL (0.2-0.9) 05/03/23 17:20 Eos # (Auto) 0.2 10^3/uL (0.0-0.8) 05/03/23 17:20 Baso # (Auto) 0.0 10^3/uL (0.0-0.1) 05/03/23 17:20 Nucleated RBC % (auto) 0 % 05/03/23 17:20 Nucleated RBCs # 0.0 /100WBC 05/03/23 17:20 Sodium 144 mmol/L (136-145) 05/03/23 17:20 Potassium 4.0 mmol/L (3.5-5.1) 05/03/23 17:20 Chloride 109 mmol/L (98-107) H 05/03/23 17:20 Carbon Dioxide 29 mmol/L (22-29) 05/03/23 17:20 Anion Gap 10.0 (5-19) 05/03/23 17:20 BUN 7 mg/dL (6-20) 05/03/23 17:20 Creatinine 0.7 mg/dL (0.5-0.9) 05/03/23 17:20 GFR Calculation 94.7 mL/min (90-130) 05/03/23 17:20 Glucose 75 mg/dL (65-115) 05/03/23 17:20 Calculated Osmolality 295 mOsm/kg (285-295) 05/03/23 17:20 Lactic Acid 1.0 mmol/L (0.5-2.2) 05/03/23 17:20 Calcium 9.0 mg/dL (8.5-10.5) 05/03/23 17:20 Magnesium 2.0 mg/dL (1.7-2.3) 05/03/23 17:20 Total Bilirubin 0.5 mg/dL (0.15-1.2) 05/03/23 17:20 AST 106 U/L (0-32) H 05/03/23 17:20 ALT 177 U/L (0-33) H 05/03/23 17:20 Alkaline Phosphatase 67 U/L (35-105) 05/03/23 17:20 Creatine Kinase 45 U/L (26-192) 05/03/23 17:20 Troponin T Baseline < 6 ng/L (0-10) 05/03/23 17:20 Total Protein 6.1 g/dL (6.6-8.7) L 05/03/23 17:20 Albumin 4.1 g/dL (3.5-5.2) 05/03/23 17:20 Globulin 2.0 g/dL (1.3-4.6) 05/03/23 17:20 HCG, Qual Negative (Negative) 05/03/23 17:20 Urine Color Yellow (Yellow) 05/03/23 17:20 Urine Appearance Clear (CLEAR) 05/03/23 17:20 Urine pH 8 (5-7) H 05/03/23 17:20 Ur Specific [place] 1.010 (1.005-1.030) 05/03/23 17:20 Urine Protein Neg (Negative) 05/03/23 17:20 Urine Glucose (UA) Norm (Normal) 05/03/23 17:20 Urine Ketones Negative (Negative) 05/03/23 17:20 Urine Blood 2+ (Negative) H 05/03/23 17:20 Urine Nitrate Negative (Negative) 05/03/23 17:20 Urine Bilirubin Neg (Negative) 05/03/23 17:20 Prot Sulfosalicylic Acd Negative (Negative) 05/03/23 17:20 Urine Urobilinogen Norm mg/dL (Negative) 05/03/23 17:20 Ur Leukocyte Esterase Negative (Negative) 05/03/23 17:20 Urine RBC 0-4 /hpf (0-2) H 05/03/23 17:20 Urine WBC 0-4 /hpf (0-5) H 05/03/23 17:20 Ur Squamous Epith Cells 0-4 /hpf (0-5) H 05/03/23 17:20 Amorphous Sediment Not Reportable 05/03/23 17:20 Urine Bacteria Trace /hpf (NONE) 05/03/23 17:20 Discharge Plan Discharge Patient Disposition: Placed in Observation Admit Provider: Reyes Bunch Clinical Impression: Syncope, Bradycardia, sinus Coding Level of Care Code ED Java J2Ee Architect for Chg Fwd Documented by User: Emil Dodd DO 05/03/23 20:29 HPI - Seizure General: Chief Complaint: Seizure Stated Complaint: seizures Time Seen by Provider: 05/03/23 16:31 PFSH ED PFSH: Medical History Anxiety Depression Seizures Surgical History No pertinent past surgical history Family History Mother Psychiatric illness depression Social History Smoking and tobacco status: current every day smoker cigarettes Packs smoked per day: 1 Alcohol intake: never Substance/Drug Use: former Household members: significant other Do you think of yourself as: Lesbian/Palmer/Homosexual Course Vital Signs: Vital signs: Vital Signs Temperature 97.5 F L 05/04/23 03:48 Pulse Rate 56 L 05/04/23 03:48 Respiratory Rate 13 05/04/23 03:48 Blood Pressure 97/63 05/04/23 03:48 Pulse Oximetry 97 05/04/23 03:48 Oxygen Delivery Me thod Room Air 05/04/23 03:48 MDM - Seizure MDM Narrative Medical decision making narrative: 37-year-old female checked out to me at shift change by Dr. Connolly. This lady had had a period of unresponsiveness lasting up to 7 minutes. She received chest compressions and rescue breathing evidently during this time. She has been bradycardic around 50on the monitor. EKG shows sinus bradycardia with a rate of 50. Novice and intervals are normal otherwise. She does have met LVH criteria. No acute ST changes. No Q waves. Chest x-ray is negative. First troponin is normal. Other laboratory work is normal. As the patient's heart rate is low, she appeared to have a syncopal episode with a period of unresponsiveness, she will be observed on telemetry. Hospitalist agrees to admission. He will evaluate. Lab Data 05/04/23 04:38 05/04/23 04:38 Labs: Radiology Impressions Chest X-Ray 05/03/23 17:04 IMPRESSION: No acute findings. Head CT 05/03/23 17:53 IMPRESSION: No acute intracranial abnormality. Chest CTA 05/03/23 23:30 IMPRESSION: 1. No pulmonary embolism. No pneumothorax. 2. Mild ground-glass opacity right lower lobe. 3. Splenomegaly Laboratory Results WBC 7.42 10^3/uL (3.29-11.43) 05/03/23 17:20 RBC 4.83 10^6/uL (3.85-5.65) 05/03/23 17:20 Hgb 14.60 g/dL (11.27-16.99) 05/03/23 17:20 Hct 43.7 % (36-47) 05/03/23 17:20 MCV 90.5 fl (85-98) 05/03/23 17:20 MCH 30.2 pg (27-33) 05/03/23 17:20 MCHC 33.4 g/dL (30-55) 05/03/23 17:20 RDW 13.0 % (12.1-15.1) 05/03/23 17:20 Plt Count 248 10^3/cmm (157-399) 05/03/23 17:20 MPV 9.8 fL (7.4-10.4) 05/03/23 17:20 Neut % (Auto) 42.9 % 05/03/23 17:20 Lymph % (Auto) 48.5 % 05/03/23 17:20 [place] % (Auto) 5.9 % 05/03/23 17:20 Eos % (Auto) 2.0 % 05/03/23 17:20 Baso % (Auto) 0.3 % 05/03/23 17:20 Neut # (Auto) 3.18 10^3/uL (1.8-7.7) 05/03/23 17:20 Lymph # (Auto) 3.6 10^3/uL (0.8-4.8) 05/03/23 17:20 [place] # (Auto) 0.4 10^3/uL (0.2-0.9) 05/03/23 17:20 Eos # (Auto) 0.2 10^3/uL (0.0-0.8) 05/03/23 17:20 Baso # (Auto) 0.0 10^3/uL (0.0-0.1) 05/03/23 17:20 Nucleated RBC % (auto) 0 % 05/03/23 17:20 Nucleated RBCs # 0.0 /100WBC 05/03/23 17:20 Sodium 144 mmol/L (136-145) 05/03/23 17:20 Potassium 4.0 mmol/L (3.5-5.1) 05/03/23 17:20 Chloride 109 mmol/L (98-107) H 05/03/23 17:20 Carbon Dioxide 29 mmol/L (22-29) 05/03/23 17:20 Anion Gap 10.0 (5-19) 05/03/23 17:20 BUN 7 mg/dL (6-20) 05/03/23 17:20 Creatinine 0.7 mg/dL (0.5-0.9) 05/03/23 17:20 GFR Calculation 94.7 mL/min (90-130) 05/03/23 17:20 Glucose 75 mg/dL (65-115) 05/03/23 17:20 Calculated Osmolality 295 mOsm/kg (285-295) 05/03/23 17:20 Lactic Acid 1.0 mmol/L (0.5-2.2) 05/03/23 17:20 Calcium 9.0 mg/dL (8.5-10.5) 05/03/23 17:20 Magnesium 2.0 mg/dL (1.7-2.3) 05/03/23 17:20 Total Bilirubin 0.5 mg/dL (0.15-1.2) 05/03/23 17:20 AST 106 U/L (0-32) H 05/03/23 17:20 ALT 177 U/L (0-33) H 05/03/23 17:20 Alkaline Phosphatase 67 U/L (35-105) 05/03/23 17:20 Creatine Kinase 45 U/L (26-192) 05/03/23 17:20 Troponin T Baseline < 6 ng/L (0-10) 05/03/23 17:20 Total Protein 6.1 g/dL (6.6-8.7) L 05/03/23 17:20 Albumin 4.1 g/dL (3.5-5.2) 05/03/23 17:20 Globulin 2.0 g/dL (1.3-4.6) 05/03/23 17:20 HCG, Qual Negative (Negative) 05/03/23 17:20 Urine Color Yellow (Yellow) 05/03/23 17:20 Urine Appearance Clear (CLEAR) 05/03/23 17:20 Urine pH 8 (5-7) H 05/03/23 17:20 Ur Specific [place] 1.010 (1.005-1.030) 05/03/23 17:20 Urine Protein Neg (Negative) 05/03/23 17:20 Urine Glucose (UA) Norm (Normal) 05/03/23 17:20 Urine Ketones Negative (Negative) 05/03/23 17:20 Urine Blood 2+ (Negative) H 05/03/23 17:20 Urine Nitrate Negative (Negative) 05/03/23 17:20 Urine Bilirubin Neg (Negative) 05/03/23 17:20 Prot Sulfosalicylic Acd Negative (Negative) 05/03/23 17:20 Urine Urobilinogen Norm mg/dL (Negative) 05/03/23 17:20 Ur Leukocyte Esterase Negative (Negative) 05/03/23 17:20 Urine RBC 0-4 /hpf (0-2) H 05/03/23 17:20 Urine WBC 0-4 /hpf (0-5) H 05/03/23 17:20 Ur Squamous Epith Cells 0-4 /hpf (0-5) H 05/03/23 17:20 Amorphous Sediment Not Reportable 05/03/23 17:20 Urine Bacteria Trace /hpf (NONE) 05/03/23 17:20 All radiology interpretation(s) finalized by discharge Discharge Plan Discharge Patient Disposition: Placed in Observation Admit Provider: Reyes Bunch Clinical Impression: Syncope, Bradycardia, sinus Coding Level of Care Code ED Java J2Ee Architect for Kandi Caballero
[2023-05-03 17:30] VITALS: BP 115/62; PULSE 57; RESP 15; O2SAT 98
--- NOTE | 2023-05-03 17:32 | PC.NURSE ---
pt resting in no acute distress at this time, placed on hall monitor family is at bedside, pt verbalized all needs being met at this time.
[2023-05-03 17:39] LABS: Basophils % 0.3 %; Eosinophils # 0.2 10^3/uL (0.0-0.8); Hematocrit 43.7 % (36-47); Lymphocytes # 3.6 10^3/uL (0.8-4.8); Lymphocytes % 48.5 %; Mean Corpuscular HGB Conc 33.4 g/dL (30-55); Mean Corpuscular Hemoglobin 30.2 pg (27-33); Mean Corpuscular Volume 90.5 fl (85-98); Mean Platelet Volume 9.8 fL (7.4-10.4); Monocytes # 0.4 10^3/uL (0.2-0.9); Monocytes % 5.9 %; Neutrophils # 3.18 10^3/uL (1.8-7.7); Neutrophils % 42.9 %; Nucleated Red Blood Cells % 0 %; Platelet Count 248 10^3/cmm (157-399); Red Blood Count 4.83 10^6/uL (3.85-5.65); White Blood Count 7.42 10^3/uL (3.29-11.43)
[2023-05-03 17:44] LABS: Bilirubin Urine Neg (Negative); Blood Urine 2+ (Negative); Glucose Urine UA Norm (Normal); Ketones Urine Negative (Negative); Nitrate Urine Negative (Negative); Protein Urine Neg (Negative); Sulfosalicylic Acid Urine Negative (Negative); Urine Appearance Clear (CLEAR); Urine Color Yellow (Yellow); pH Urine 8 (5-7)
[2023-05-03 17:45] LABS: Add Urine Culture? No; Add Urine Microscopic? YES; Bacteria Urine TRACE /hpf; Leukocyte Esterase Urine Negative (Negative); RBC Urine 0-4 /hpf (0-2); Squamous Epithelial Cell Urine 0-4 /hpf (0-5); Urobilinogen Urine Norm (Negative); WBC Urine 0-4 /hpf (0-5)
[2023-05-03 17:50] LABS: HCG, Serum Qual Negative (Negative)
--- NOTE | 2023-05-03 17:53 | CTR_ITS ---
PROCEDURE INFORMATION: Exam: CT Head Without Contrast Exam date and time: 05/03/2023 6:01 PM Age: 37 years old Clinical indication: Condition or disease; Convulsions or seizures; Patient HX: Seizure with head strike. History of seizure disorder. ; Additional info: Loc/syncope TECHNIQUE: Imaging protocol: Computed tomography of the head without contrast. Radiation optimization: All CT scans at this facility use at least one of these dose optimization techniques: automated exposure control; mA and/or kV adjustment per patient size (includes targeted exams where dose is matched to clinical indication); or iterative reconstruction. REPORTING DATA: Count of CT and Cardiac NM exams in prior 12 months: This patient has received 0 known CTs and 0 known cardiac nuclear medicine studies in the 12 months prior to the current study. COMPARISON: CT head wo con* [id number] 08/21/2020 6:37 PM RADIATION DOSE METRICS: Total DLP (mGy-cm): 1019.98 FINDINGS: Brain: Normal. No hemorrhage. Unremarkable white matter. No mass effect. Cerebral ventricles: No ventriculomegaly. Paranasal sinuses: Visualized sinuses are unremarkable. No fluid levels. Mastoid air cells: Visualized mastoid air cells are well aerated. Bones/joints: Unremarkable. No acute fracture. Soft tissues: Unremarkable. CT/CT head wo con* [id number] IMPRESSION: No acute intracranial abnormality.
[2023-05-03 17:55] LABS: Troponin(5th) Baseline < 6 ng/L (0-10)
[2023-05-03 17:57] LABS: Alanine Aminotransferase 177 U/L (0-33); Albumin Level 4.1 g/dL (3.5-5.2); Alkaline Phosphatase 67 U/L (35-105); Aspartate Amino Transferase 106 U/L (0-32); Blood Urea Nitrogen 7 mg/dL (6-20); Carbon Dioxide 29 mmol/L (22-29); Chloride 109 mmol/L (98-107); Creatine Phosphokinase 45 U/L (26-192); Glomerular Filtration Rate 94.7 mL/min (90-130); Glucose 75 mg/dL (65-115); Osmolality Calculated 295 mOsm/kg (285-295); Sodium 144 mmol/L (136-145); Total Bilirubin 0.5 mg/dL (0.15-1.2); Total Protein 6.1 g/dL (6.6-8.7)
--- NOTE | 2023-05-03 19:01 | PC.NURSE ---
Report taken from Denia CAMARA at this time.
[2023-05-03] MEDS: metoclopramide 5 mg/mL SDV 2 mL 10 MG IVP (19:07)
[2023-05-03] MEDS: sodium chloride 0.9% 1,000 ML 999 ML IV (19:07)
[2023-05-03 19:13] VITALS: BP 115/62; PULSE 54; RESP 16; O2SAT 100
--- NOTE | 2023-05-03 20:40 | PC.NURSE ---
Report called to Samia CAMARA on Med-Surg. All questions and concerns addressed at time of report.
[2023-05-03 20:51] LABS: Troponin 5 2HR Delta 0 ABS# (0-10)
--- NOTE | 2023-05-03 23:00 | P.HP_ITS ---
Providers/Chief Complaint Admitting Physician: Reyes Bunch MD Primary Care Provider: Angela Lincoln NP Chief Complaint: seizures History of Present Illness Tricia Guerra is a 37 year old female with a past medical history of reported seizure disorder, however only on gabapentin which she believes is a seizure medication. Last seizure was over 8 months ago. Presented to the emergency room today with an episode of unresponsiveness that required CPR. Patient was walking in the car with the family when suddenly her family noted her to become unresponsive. Patient reports she has some chest discomfort just prior to the event and felt like it was hard to catch her breath. When she felt extremely sleepy does not remember the events thereafter. States that when she woke up she was in the hospital. Her family performed CPR for about 7 minutes before She was able to be awake again. She is currently awake alert and oriented x3. States that chest pain is still persisting however this may be related to CPR that she received earlier. She does not know if she was incontinent or bit her tongue during the event. Denies any current dyspnea. Saturating well on room air. EKG upon arrival to the emergency room showed sinus bradycardia with a heart rate of 50 bpm. QTc interval is 402ms. Review of chart shows patient was noted to have sinus bradycardia in the past with heart rate range between 43 to 80 bpm. She denies any current dizziness. No history of known prior cardiac issues. No history of PE or DVT. He is not currently . Beta-hCG is negative. Patient denies any hormonal contraceptive use, however review of her primary care physician's notes show that patient has a Nexplanon implant which is about 2 years old. No history of illicit drug use. No history of alcohol consumption. She has not been feeling sick recently, in her baseline state of health overall. Review of Systems General: Reports: 10 or more systems reviewed and unremarkable except in HPI and below Const: Denies: fever(s), chills or body aches Eyes: Denies: change in vision, blurry vision or photophobia ENMT: Reports: hoarseness; Denies: throat pain, enlarged tonsils, odynophagia or nasal congestion Card: Denies: chest pain, palpitations, irregular heart rhythm, edema, swelling of feet/ankles, lightheadedness, pre-syncope, dyspnea on exertion or orthopnea Resp: Denies: dyspnea, productive cough, non-productive cough, wheezing, stridor, pain on inspiration, change in phlegm color, hemoptysis or chest congestion GI: Denies: abdominal pain, nausea, vomiting, hematemesis, coffee ground emesis, dysphagia, heartburn, diarrhea, constipation, GI cramping, change in stool character, hematochezia or melena : Denies: flank pain, difficulty voiding, dysuria, urinary frequency, urinary urgency, urinary hesitancy or hematuria Musc: Denies: neck pain, back pain, extremity pain, joint swelling, joint warmth or deformity Neuro: Denies: headache(s), numbness in extremities, weakness in extremities, sensory changes, difficulty walking, frequent falls, dizziness, vertigo, behavioral changes, Slurred speech present or seizure-like activity Psych: Denies: anxiety, depression, suicidal ideation or homicidal ideation Endo: Denies: polyuria, polydipsia, tired all the time, cold intolerance or hot flashes [place]/Lymph: Denies: easy bruising or easy bleeding Medications/Allergies Home Medications Medication Instructions Recorded Confirmed Last Taken Type buprenorphine 8 mg-naloxone 2 mg 1 film buccal BID 03/15/20 05/03/23 05/03/23 09:00 History sublingual film (Suboxone) acyclovir 400 mg tablet 400 mg PO BID 30 days #60 tabs 12/17/22 05/03/23 05/03/23 09:00 Rx aripiprazole 10 mg tablet 10 mg PO DAILY 02/19/23 05/03/23 05/03/23 09:00 Hi story escitalopram oxalate 20 mg tablet 20 mg PO DAILY 02/19/23 05/03/23 05/03/23 09:00 History doxepin 10 mg capsule 10 mg PO BEDTIME 05/03/23 05/03/23 05/02/23 History gabapentin 800 mg tablet 800 mg PO BID 05/03/23 05/03/23 05/03/23 09:00 History prazosin 1 mg capsule 1 mg PO QPM 05/03/23 05/03/23 05/02/23 20:00 History Allergies Allergy/AdvReac Type Severity Reaction Status Date / Time morphine Allergy Unknown Verified 03/15/20 13:03 ondansetron [From Zofran] Allergy Unknown Verified 08/04/20 13:03 PFSH Acute PFSH: Medical History Anxiety Depression Seizures Surgical History No pertinent past surgical history Family History Mother Psychiatric illness depression Social History Smoking and tobacco status: current every day smoker cigarettes Packs smoked per day: 1 Alcohol intake: never Substance/Drug Use: former Household members: significant other Do you think of yourself as: Lesbian/Palmer/Homosexual Vitals/I&O/Wt Last Vital Signs Temp 97.5 F L 05/03/23 23:59 Pulse 64 05/03/23 23:59 Resp 13 05/03/23 23:59 BP 113/74 05/03/23 23:59 Pulse Ox 98 05/03/23 23:59 O2 Del Method Room Air 05/03/23 23:59 05/03/23 05/03/23 05/04/23 14:59 22:59 06:59 Intake Total 1000 / 1000 Balance 1000 / 1000 Weight last 48 hrs Weight 70.76 kg Physical Exam Narrative: General: No acute distress, AO x3 HEENT: PERRLA, pupils bilaterally equal and reactive, pallors not present Chest: Normal vesicular breath sounds, no added sounds, equal good air entry bilaterally CVS: S1-S2 regular, no murmurs, no tachycardia, no gallops, no rubs Abdomen: Soft, nontender, no organomegaly, bowel sounds present Neuro: No focal deficits, no facial deformity, AO x3, power 5/5 in all limbs Data 05/04/23 04:38 05/04/23 04:38 A&P Assessment and plan (1) Unresponsive episode: Patient presenting to the emergency room today with chief complaints of an unresponsive episode while traveling in a car with her family. Family provided CPR to her for about 7 minutes. Patient does not recall any symptoms prior to going down except for mild chest discomfort EKG shows sinus bradycardia. Troponin series 6 at baseline, no change at 2-hour ruddy. CTA ordered to evaluate for possible PE, currently pending We will monitor on telemetry for any underlying arrhythmias that may have explained her current episode Alternate differentials include syncopal episode versus seizure. Patient reports a past history of seizure disorder, however reports usually these are associated with shaking movements involving her arms and legs. No such tonic-clonic movements were noted today by family. Last seizure was 8 months ago. She was lost to follow-up with neurology. She states that she takes gabapentin for the seizures , which seems like an odd choice. Check prolactin level with a.m. labs. Check carotid ultrasound CT head without acute intracranial issues (2) Bradycardia, sinus: Sinus bradycardia with heart rate ranging in the 50s Continue to monitor on telemetry Plan DVT prophylaxis: SCDs: Low risk overall Full code Attestations Medical Necessity Statement*: Less than 2 midnight stay is anticipated for evaluation of unresponsive episode Coding Level of Care Code Acute Code for Chg Fwd Moderate MDM includes number and complexity of problems actively addressed during encounter, amount and/or complexity of data reviewed/ordered and described risk of complication, morbidity or mortality of management as documented Diagnoses Unresponsive episode R40.4 Bradycardia, sinus R00.1
[2023-05-03 23:25] VITALS: BP 105/70; PULSE 52; RESP 13; TEMP 36.3; O2SAT 98
--- NOTE | 2023-05-03 23:30 | CTR_ITS ---
PROCEDURE INFORMATION: Exam: CTA Chest With Contrast Exam date and time: 05/04/2023 3:03 AM Age: 37 years old Clinical indication: Chest pressure; Patient HX: C/O chest pain for reported cpr performed by family for unresponsiveness. ; Additional info: Evaluate for pe TECHNIQUE: Imaging protocol: Computed tomographic angiography of the chest with contrast. Exam focused on the arteries. 3D rendering (Not supervised by radiologist): MIP and/or 3D reconstructed images were created by the technologist. Radiation optimization: All CT scans at this facility use at least one of these dose optimization techniques: automated exposure control; mA and/or kV adjustment per patient size (includes targeted exams where dose is matched to clinical indication); or iterative reconstruction. Contrast material: OMNI 350; Contrast volume: 70 ml; Contrast route: INTRAVENOUS (IV); REPORTING DATA: Count of CT and Cardiac NM exams in prior 12 months: This patient has received [address] and 0 known cardiac nuclear medicine studies in the 12 months prior to the current study. COMPARISON: CR (CHEST, ) 05/03/2023 5:28 PM RADIATION DOSE METRICS: Total DLP (mGy-cm): 316.08 FINDINGS: Pulmonary arteries: Normal. No pulmonary emboli. Aorta: Unremarkable. No aortic aneurysm. No aortic dissection. Lungs: Focal ground-glass opacity in the right lower lobe. Pleural spaces: Unremarkable. No pneumothorax. No pleural effusion. Heart: Unremarkable. No cardiomegaly. No pericardial effusion. Lymph nodes: Unremarkable. No enlarged lymph nodes. Spleen: Splenomegaly. Bones/joints: Unremarkable. No acute fracture. Soft tissues: Unremarkable. CT/CT angio chest PE protcl [id number] IMPRESSION: 1. No pulmonary embolism. No pneumothorax. 2. Mild ground-glass opacity right lower lobe. 3. Splenomegaly
[2023-05-03 23:52] LABS: Magnesium 1.8 mg/dL (1.7-2.3)
[2023-05-03 23:59] VITALS: BP 113/74; PULSE 64; RESP 13; TEMP 36.4; O2SAT 98
[2023-05-04] VITALS (9 sets, daily range): BP systolic 95–117; BP diastolic 57–68; PULSE 52–73; RESP 13–18; TEMP 36.3–36.9; O2SAT 94–97
[2023-05-04 01:27] LABS: Alcohol Level < 10 mg/dL (0-10)
[2023-05-04] MEDS: acetaminophen 325 mg Tablet 650 MG PO ×2 (02:01→11:15)
[2023-05-04] MEDS: iohexol 350 mg/mL 500 mL Btl (per mL) IV (03:12)
[2023-05-04 05:12] LABS: Basophils % 0.4 %; Eosinophils # 0.2 10^3/uL (0.0-0.8); Eosinophils % 2.4 %; Hematocrit 39.2 % (36-47); Lymphocytes # 4.2 10^3/uL (0.8-4.8); Lymphocytes % 58.2 %; Mean Corpuscular HGB Conc 32.9 g/dL (30-55); Mean Corpuscular Hemoglobin 30.1 pg (27-33); Mean Corpuscular Volume 91.6 fl (85-98); Mean Platelet Volume 9.9 fL (7.4-10.4); Monocytes # 0.5 10^3/uL (0.2-0.9); Monocytes % 6.9 %; Neutrophils # 2.28 10^3/uL (1.8-7.7); Neutrophils % 31.8 %; Nucleated Red Blood Cells % 0 %; Platelet Count 212 10^3/cmm (157-399); Red Blood Count 4.28 10^6/uL (3.85-5.65); Red Cell Distribution Width 13.1 % (12.1-15.1); White Blood Count 7.15 10^3/uL (3.29-11.43)
[2023-05-04 05:51] LABS: Alanine Aminotransferase 136 U/L (0-33); Albumin Level 3.5 g/dL (3.5-5.2); Alkaline Phosphatase 58 U/L (35-105); Anion Gap 11.5 (5-19); Aspartate Amino Transferase 63 U/L (0-32); Blood Urea Nitrogen 5 mg/dL (6-20); Calcium 8.6 mg/dL (8.5-10.5); Carbon Dioxide 25 mmol/L (22-29); Chloride 105 mmol/L (98-107); Globulin 2.3 g/dL (1.3-4.6); Glomerular Filtration Rate 94.7 mL/min (90-130); Glucose 88 mg/dL (65-115); Magnesium 1.8 mg/dL (1.7-2.3); Osmolality Calculated 283 mOsm/kg (285-295); Potassium 3.5 mmol/L (3.5-5.1); Sodium 138 mmol/L (136-145); Thyroid Stimulating Hormone 2.89 uIU/mL (0.27-4.20); Total Bilirubin 0.3 mg/dL (0.15-1.2); Total Protein 5.8 g/dL (6.6-8.7)
[2023-05-04] MEDS: metoclopramide 5 mg/mL SDV 2 mL IVP ×2 (06:00→16:30)
--- NOTE | 2023-05-04 06:00 | USCV_ITS ---
Tricia Guerra Age: 37 Gender: F : 1985 Exam Date: 05/04/2023 06:19 Ordering Phys: Mary Billings MD Technologist: Tiago Rodríguez [place]am Location[place] [facility] [place] Indication: post cardiac arrest BP: 97 / 63 HR: 61 Rhythm: Sinus Technical Quality: Adequate MEASUREMENTS (Male / Female) Normal Values 2D ECHO LVOT Diameter 2.0 cm LV Ejection Fraction MOD 2C 76.2 % LV Ejection Fraction 2C AL 76.5 % LA Diameter 3.1 cm LA Width 3.1 cm LA Height 4.8 cm RA Width 3.4 cm RA Height 4.9 cm Aorta at Sinotubular Diameter 2.0 cm IVC Diameter 1.6 cm M-MODE Aortic Annulus Diameter 2.1 cm LA Ao Ratio MM 1.5 MV E Point Septal Separation 0.5 cm DOPPLER AV Peak Velocity 157.0 cm/s LVOT Peak Velocity 109.0 cm/s AV Area Cont Eq vti 2.3 cm squared AV Area Cont Eq pk 2.2 cm squared MV Peak Velocity 113.0 cm/s MV Area PHT 5.0 cm squared Mitral E to A Ratio 1.7 MV E' Velocity 49.5 cm/s Mitral E to MV E' Ratio 5.7 Mitral E to LV E' Lateral Ratio 5.1 Mitral E to LV E' Septal Ratio 6.5 TR Peak Velocity 237.1 cm/s TR Peak Gradient 22.5 mmHg TR Mean Velocity 190.6 cm/s TR Mean Gradient 16.3 mmHg TR Velocity Time Integral 63.6 cm Right Atrial Pressure 3.0 mmHg Pulmonary Artery Systolic Pressu 25.5 mmHg PV Peak Velocity 98.0 cm/s RV Acceleration Time 0.2 s RV Ejection Time 0.3 s RV AcT/ET 0.5 FINDINGS Left Ventricle Left ventricle is normal in size. LV systolic function is normal with EF of 55 to 60%. No regional wall motion abnormalities are seen. Right Ventricle The right ventricle is normal in size and function. Right Atrium The right atrium is normal in size. Left Atrium The left atrium is normal in size. Mitral Valve Structurally normal mitral valve . Trace mitral regurgitation. Aortic Valve Structurally normal aortic valve. No significant stenosis or regurgitation. Tricuspid Valve Trace tricuspid regurgitation. Insufficient TR jet to evaluate RVSP. Pulmonic Valve Not well-visualized Pericardium Normal pericardium without effusion. Aorta Normal ascending aorta dimension. IVC The inferior vena cava appears normal. CONCLUSIONS LV systolic function is normal with EF of 55-60% Trace mitral regurgitation Trace tricuspid regurgitation Compared to prior echocardiogram from 2013, no significant changes are seen Laith Chaidez MD (Electronically Signed) Final Date: 04 May 2023 11:34 S
--- NOTE | 2023-05-04 07:02 | USR_ITS ---
PROCEDURE INFORMATION: Exam: US Duplex Bilateral Extracranial Arteries; Complete; Carotid Arteries Exam date and time: 05/04/2023 8:07 AM Age: 37 years old Clinical indication: Syncope and collapse TECHNIQUE: Imaging protocol: Real-time duplex ultrasound scan of the bilateral extracranial arteries combining oates scale, color Doppler and spectral waveform analysis with image documentation. Complete exam. Exam focused on the carotid arteries. COMPARISON: CT head wo con* [id number] 05/03/2023 6:01 PM FINDINGS: Right common carotid artery: Unremarkable. No occlusion or stenosis. Waveforms are normal. Right internal carotid artery: Unremarkable. No occlusion or stenosis. Waveforms are normal. Right ICA/CCA ratio: Within normal limits. Right external carotid artery: No stenosis in the origin. Right vertebral artery: Unremarkable. Antegrade flow. Left common carotid artery: Unremarkable. No occlusion or stenosis. Waveforms are normal. Left internal carotid artery: Unremarkable. No occlusion or stenosis. Waveforms are normal. Left ICA/CCA ratio: Within normal limits. Left external carotid artery: No stenosis in the origin. Left vertebral artery: Unremarkable. Antegrade flow. US/CV carotid duplex BI* [id number] IMPRESSION: No carotid arterial stenosis. REFERENCES: SRU CRITERIA. The degree of internal carotid artery stenosis is based on criteria defined by the Society of Radiologists in Ultrasound (SRU). Normal is no stenosis. Mild is less than 50% stenosis. Moderate is 50-69% stenosis. Severe is greater than 69% stenosis to near occlusion. Near occlusion is a markedly narrowed lumen. Total occlusion is no detectable patent lumen.
[2023-05-04] MEDS: ARIPiprazole 10 mg Tablet PO (09:48)
[2023-05-04] MEDS: gabapentin 400 mg Capsule 800 MG PO ×2 (09:48→18:06)
[2023-05-04] MEDS: pantoprazole DR 40 mg Tablet PO (09:48)
[2023-05-04] MEDS: buprenorphine-naloxone 4-1 mg Film 2 EACH SUBLINGUAL ×2 (09:49→18:18)
[2023-05-04] MEDS: escitalopram 10 mg Tablet 20 MG PO (09:49)
[2023-05-04] MEDS: acyclovir 400 mg Tablet PO ×2 (09:49→18:16)
--- NOTE | 2023-05-04 12:44 | PM.PN ---
Subjective Subjective: Patient is awake and alert No soreness in her chest Patient is not sure whether she ever had bradycardia She is endorsing to marijuana Smokes 30 cigarettes a day Vitals/I&O/Wt Last Vital Signs Temp 98.4 F 05/04/23 08:42 Pulse 59 L 05/04/23 08:42 Resp 18 05/04/23 08:42 BP 117/64 05/04/23 08:42 Pulse Ox 96 05/04/23 08:42 O2 Del Method Room Air 05/04/23 08:42 05/03/23 05/04/23 05/04/23 22:59 06:59 14:59 Intake Total 1000 / 1000 480 / 480 Balance 1000 / 1000 480 / 480 Weight last 48 hrs Weight 70.76 kg Physical Exam Narrative: Awake and alert Reproducible chest pain Pleasant No active signs of seizures Pleasant and cooperative Well-hydrated Currently on room air Data 05/04/23 04:38 05/04/23 04:38 A&P Assessment and plan (1) Syncope: (2) Bradycardia, sinus: (3) Unresponsive episode: (4) Secondary amenorrhea: (5) Seizures: Plan Sinus bradycardia No active complaints no shortness of breath confusion Complaining of chest pain reproducible Patient will wait for stress test on Saturday Full code GCS 15 No active signs of seizures Patient does not take any antiepileptics Patient smokes 30 cigarettes a day endorses to medical marijuana which she is taking for depression Cardiac diet Awaiting on echo report. Attestations Medical Necessity Statement*: Stress test on Saturday Diagnoses Syncope R55 Bradycardia, sinus R00.1 Unresponsive episode R40.4 Secondary amenorrhea N91.1 Seizures R56.9
[2023-05-04] MEDS: doxepin 10 mg Capsule PO (21:22)
--- NOTE | 2023-05-04 21:29 | ECG_ITS ---
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 Measurements Intervals [place] Rate: 56 P: 35 WV: 119 QRS: 63 QRSD: 79 T: 20 QT: 440 QTc: 426 Interpretive Statements SINUS BRADYCARDIA WITH SHORT WV INTERVAL Compared to ECG 05/03/2023 17:12:57 Short WV interval now present Electronically Signed On 05-05-2023 14:52:05 CDT by Laith Chaidez M.D. [email or web address] medical centerNextPoint Networksselect medical specialty hospital - [facility] northAppSense/store/OM/[id number]
[2023-05-04] MEDS: ketorolac 30 mg/mL INJ 15 MG IVP (22:17)
[2023-05-04 23:00] LABS: Troponin T (5th) Once < 6 ng/L (0-10)
[2023-05-05] VITALS (7 sets, daily range): BP systolic 92–105; BP diastolic 58–67; PULSE 48–65; RESP 16–17; TEMP 36.5–36.9; O2SAT 94–96
[2023-05-05] MEDS: escitalopram 10 mg Tablet 20 MG PO (09:03)
[2023-05-05] MEDS: ARIPiprazole 10 mg Tablet PO (09:04)
[2023-05-05] MEDS: pantoprazole DR 40 mg Tablet PO (09:04)
[2023-05-05] MEDS: gabapentin 400 mg Capsule 800 MG PO ×2 (09:04→16:48)
[2023-05-05] MEDS: buprenorphine-naloxone 4-1 mg Film 2 EACH SUBLINGUAL ×2 (09:04→16:49)
--- NOTE | 2023-05-05 09:34 | PM.PN ---
Subjective Subjective: Stress test treadmill stress test tomorrow Patient complain of chest soreness No active vomiting Complaining of nausea Bradycardia noted overnight Vitals/I&O/Wt Last Vital Signs Temp 98.5 F 05/05/23 08:00 Pulse 65 05/05/23 08:00 Resp 16 05/05/23 08:00 BP 93/58 05/05/23 08:00 Pulse Ox 94 05/05/23 08:00 O2 Del Method Room Air 05/05/23 08:00 05/04/23 05/05/23 05/05/23 22:59 06:59 14:59 Intake Total 820 / 1540 360 / 360 Balance 820 / 1540 360 / 360 Weight last 48 hrs Weight 70.76 kg Physical Exam Narrative: Asymptomatic bradycardia GCS 15 Chest pain is reproducible Mother at the bedside Patient is euvolemic Abdomen soft Nonfocal neuro exam No recurrent seizure episode Patient uncooperative Data 05/04/23 04:38 05/04/23 04:38 A&P Assessment and plan (1) Unresponsive episode: (2) Syncope: (3) Bradycardia, sinus: (4) Secondary amenorrhea: (5) Labile mood: (6) Seizures: Plan Patient will go for worse treadmill stress test tomorrow N.p.o. after midnight For low blood pressure I will add normal saline for IV fluid hydration Sinus bradycardia no active symptoms Patient will need Holter monitor at the time of discharge tomorrow No recurrence of seizure Echo is unremarkable Poke with her mother who was at the bedside All questions were answered Hold acyclovir for day Mother is stating that her cousin is in 30s and has a pacemaker for pots syndrome Attestations Medical Necessity Statement*: Discharge tomorrow Diagnoses Unresponsive episode R40.4 Syncope R55 Bradycardia, sinus R00.1 Secondary amenorrhea N91.1 Labile mood R45.86 Seizures R56.9
[2023-05-05] MEDS: sodium chloride 0.9% 1,000 ML 75 ML IV (09:55)
[2023-05-05] MEDS: acetaminophen 325 mg Tablet 650 MG PO ×2 (11:58→20:34)
[2023-05-05 12:48] LABS: Troponin T (5th) Once < 6 ng/L (0-10)
[2023-05-05] MEDS: ketorolac 30 mg/mL INJ 15 MG IVP (13:35)
--- NOTE | 2023-05-05 13:53 | ECG_ITS ---
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 Measurements Intervals [place] Rate: 52 P: 20 IA: 108 QRS: 61 QRSD: 79 T: 29 QT: 474 QTc: 442 Interpretive Statements SINUS BRADYCARDIA WITH SHORT IA INTERVAL Compared to ECG 05/04/2023 21:29:41 No significant changes Electronically Signed On 05-05-2023 14:39:26 CDT by Laith Chaidez M.D. [email or web address] county [email or web address] [email or web address]/store/[id number]
[2023-05-05] MEDS: doxepin 10 mg Capsule PO (20:31)
[2023-05-06] VITALS (10 sets, daily range): BP systolic 88–118; BP diastolic 52–76; PULSE 43–80; RESP 13–19; TEMP 36.6–36.8; O2SAT 94–97
--- NOTE | 2023-05-06 | ECG_ITS ---
[facility] Test Date: 2023-05-06 Pat Name: Tricia Guerra Department: Room: 259 Gender: Female Java J2Ee Software Engineer: Rastaanders Villagomezid : 1985 Requested By: Irineo Alfaro Order Number: [id number] Reina MD: Joselin Pandya M.D. Interpretive Statements NAME OF STUDY: EXERCISE SESTAMIBI STRESS TEST INDICATION: UA, PROCEDURE: The baseline electrocardiogram showed sinus bradycardia with a rate of [address] Ts. At the baseline, the patient's blood pressure was 99/56 mm Hg with a heart rate of 49. The patient exercised for 6 minutes and 55 seconds on a standard Himanshu protocol. Patient attained a maximum heart rate of 171 beats per minute(92% of the maximum predicted heart rate) with a blood pressure at the peak exercise of 175/78 mm Hg. The EKG at the peak exercise revealed 1 to 1-1/[address] depressions in lead II, 3, aVF, V3 to V6. Patient did not have any chest pain or any significant arrhythmis with the exercise Sestamibi was injected 1 minute prior to the peak exercise During the recovery phase, there were no new changes. The EKG almost returned back to the baseline Blood pressure at the end of the recovery phase was 113/52 mm Hg with a heart rate of 80 per minute. CONCLUSION: 1. Abnormal EKG response to treadmill exercise suggesting inferolateral wall ischemia 2. No exercise-induced chest pain or cardiac arrhythmia 3. fair exercise tolerance, attained a maximum of 10.2 METs 4. Sestamibi/Sestamibi perfusion results pending; see separate report. 5. The Salas treadmill score was -6(moderate) Electronically Signed On 05-06-2023 13:23:59 CDT by Joselin Pandya M.D. [email or web address].Convergent RadiotherapyCapsoVisionasc[email or web address]/store/OM/[id number]
[2023-05-06] MEDS: sodium chloride 0.9% 1,000 ML 75 ML IV (00:33)
--- NOTE | 2023-05-06 00:54 | ECG_ITS ---
[facility] Test Date: 2023-05-06 Pat Name: Tricia Guerra Department: Room: 259 Gender: Female Provider Network Mgr: : 1985 Requested By: Mary Billings Order Number: [id number] Reina MD: Laith Chaidez M.D. Measurements Intervals [place] Rate: 45 P: 62 NV: 128 QRS: 82 QRSD: 85 T: 60 QT: 478 QTc: 415 Interpretive Statements SINUS BRADYCARDIA Compared to ECG 05/05/2023 13:53:16 Short NV interval no longer present Electronically Signed On 05-06-2023 16:16:42 CDT by Laith Chaidez M.D. [email or web address].ZeOmega/store/[id number]
[2023-05-06] MEDS: ketorolac 30 mg/mL INJ 15 MG IVP (01:45)
[2023-05-06] MEDS: escitalopram 10 mg Tablet 20 MG PO (08:28)
[2023-05-06] MEDS: ARIPiprazole 10 mg Tablet PO (08:28)
[2023-05-06] MEDS: buprenorphine-naloxone 4-1 mg Film 2 EACH SUBLINGUAL (08:28)
[2023-05-06] MEDS: gabapentin 400 mg Capsule 800 MG PO (08:29)
[2023-05-06] MEDS: pantoprazole DR 40 mg Tablet PO (08:29)
--- NOTE | 2023-05-06 09:34 | NMCV_ITS ---
NM andrew perf SPECT r/s* [id number] Tricia Guerra Age: 37 Gender: F : 1985 Exam Date: 05/06/2023 09:34 Ordering Phys: Irineo Alfaro MD Technologist: CONRAD Ramey Exam Location: [facility] Indications: CHEST PAIN STRESS TEST Please see separate stress test report in [facility] for full findings IMAGE PROTOCOL Rest/Stress 1 Exercise Day Radiopharmaceutical Dose (mCi) Administration Site Administered by Rest: Tc-99m 11.0 IV CONRAD Ramey Sestamibi Stress:Tc-99m 32.2 IV CONRAD Brown Sestamimykel Rest: 06-May-2023 60 Discovery 630 Stress: 06-May-2023 15 Discovery 630 Radiopharmaceutical was injected at 85 % maximum heart rate. Images obtained in supine and prone position. SPECT RESULTS Technical Quality: Excellent Raw Data Analysis: Normal Image Corrections: No attenuation or motion correction applied Summed Stress Score: 0 Summed Rest Score: 0 Summed Difference Score: 0 PERFUSION FINDINGS SPECT images demonstrate homogeneous tracer distribution throughout the myocardium. FUNCTIONAL RESULTS (calculated via Gated SPECT) Stress Image LV EF (%): 73 Stress EDV (mL):91 TID: 1.14 Stress ESV (mL):25 FUNCTIONAL FINDINGS: Segmental wall motion analysis revealing no gross wall motion abnormalities IMPRESSIONS 1. Myocardial perfusion imaging revealing uniform myocardial tracer uptake with with no significant perfusion abnormalities 2. Normal LV ejection fraction 73% 3. LV wall motion analysis revealing no gross wall motion abnormalities 4. Normal LV volume No similar previous studies are available for comparison. Low probability for coronary ischemia, based on the above findings Dr Joselin Pandya MD FACC (Electronically Signed) Final Date: 06 May 2023 13:03 S
--- NOTE | 2023-05-06 10:44 | P.DS_ITS ---
Discharge Providers Date of Admission: 05/03/23 19:44 Date of Discharge: May 06, 2023 Attending Provider at Admission: Reyes Bunch MD Attending Provider at Discharge: Irineo Aflaro MD Primary Care Provider: Angela Lincoln NP Diagnoses at Discharge Discharge Diagnosis (1) Unresponsive episode: Status: Acute (2) Syncope: Status: Acute (3) Bradycardia, sinus: Status: Acute (4) Secondary amenorrhea: Status: Acute (5) Labile mood: Status: Acute (6) Seizures: Status: Acute Reason for Visit Reason for Visit: seizures Hospital Course Hospital Course 37-year-old female who was admitted for management evaluation of syncopal ep isode, there was concern for breakthrough seizure her prolactin was high troponins unremarkable she kept complaining of chest pain because in the car when she passed out her friends did CPR for 5 to 7 minutes, her pain is reproducible, echo unremarkable, she remained bradycardic, sinus bradycardia evident on EKG without any signs of Brugada syndrome, there is family history of pacemaker, her cousin who is 30 years old is on a pacemaker for POTS as per the family. Stress test requested, we did treadmill stress test to know her functional capacity and chronotropic evaluation of her intrinsic pacemaker. There is plan to have her follow-up with cardiology outpatient, she will be discharged with Holter monitor CTA chest rule out PE, carotid Doppler unremarkable. Her bradycardia most likely is related to prazosin I will discontinue that medication at the time of discharge Physical Exam Narrative: Awake and alert S1, S2 Abdomen soft GCS 15 Currently on room air Reproducible chest pain Discharge Data Studies Completed and Pending Completed Studies During Hospitalization Category Date Time Status CT head wo con* [id number] Stat Cat Scan 05/03/23 17:53 Completed CTA PE [CT angio chest PE protcl [id number]] Routine Cat Scan 05/03/23 23:30 Completed XR chest 1V portable [id number] Stat Exams 05/03/23 17:04 Completed CV carotid duplex BI* [id number] Routine Ultrasound 05/04/23 07:02 Completed CV. echo complete* [id number] Routine Ultrasound 05/04/23 06:00 Completed Pending at discharge Category Date Time Status Sestamibi Stress Test Request Routine Exams 05/06/23 06:00 Ordered NM andrew perf SPECT r/s* [id number] Routine Nuc Med 05/06/23 09:34 Ordered Radiology Impressions Chest X-Ray 05/03/23 17:04 IMPRESSION: No acute findings. Head CT 05/03/23 17:53 IMPRESSION: No acute intracranial abnormality. Chest CTA 05/03/23 23:30 IMPRESSION: 1. No pulmonary embolism. No pneumothorax. 2. Mild ground-glass opacity right lower lobe. 3. Splenomegaly Carotid Doppler Study 05/04/23 07:02 IMPRESSION: No carotid arterial stenosis. REFERENCES: SRU CRITERIA. The degree of internal carotid artery stenosis is based on criteria defined by the Society of Radiologists in Ultrasound (SRU). Normal is no stenosis. Mild is less than 50% stenosis. Moderate is 50-69% stenosis. Severe is greater than 69% stenosis to near occlusion. Near occlusion is a markedly narrowed lumen. Total occlusion is no detectable patent lumen. Laboratory Results WBC 7.15 10^3/uL (3.29-11.43) 05/04/23 04:38 RBC 4.28 10^6/uL (3.85-5.65) 05/04/23 04:38 Hgb 12.90 g/dL (11.27-16.99) 05/04/23 04:38 Hct 39.2 % (36-47) 05/04/23 04:38 MCV 91.6 fl (85-98) 05/04/23 04:38 MCH 30.1 pg (27-33) 05/04/23 04:38 MCHC 32.9 g/dL (30-55) 05/04/23 04:38 RDW 13.1 % (12.1-15.1) 05/04/23 04:38 Plt Count 212 10^3/cmm (157-399) 05/04/23 04:38 MPV 9.9 fL (7.4-10.4) 05/04/23 04:38 Neut % (Auto) 31.8 % 05/04/23 04:38 Lymph % (Auto) 58.2 % 05/04/23 04:38 Treasure % (Auto) 6.9 % 05/04/23 04:38 Eos % (Auto) 2.4 % 05/04/23 04:38 Baso % (Auto) 0.4 % 05/04/23 04:38 Neut # (Auto) 2.28 10^3/uL (1.8-7.7) 05/04/23 04:38 Lymph # (Auto) 4.2 10^3/uL (0.8-4.8) 05/04/23 04:38 Treasure # (Auto) 0.5 10^3/uL (0.2-0.9) 05/04/23 04:38 Eos # (Auto) 0.2 10^3/uL (0.0-0.8) 05/04/23 04:38 Baso # (Auto) 0.0 10^3/uL (0.0-0.1) 05/04/23 04:38 Nucleated RBC % (auto) 0 % 05/04/23 04:38 Nucleated RBCs # 0.0 /100WBC 05/04/23 04:38 Sodium 138 mmol/L (136-145) 05/04/23 04:38 Potassium 3.5 mmol/L (3.5-5.1) 05/04/23 04:38 Chloride 105 mmol/L (98-107) 05/04/23 04:38 Carbon Dioxide 25 mmol/L (22-29) 05/04/23 04:38 Anion Gap 11.5 (5-19) 05/04/23 04:38 BUN 5 mg/dL (6-20) L 05/04/23 04:38 Creatinine 0.7 mg/dL (0.5-0.9) 05/04/23 04:38 GFR Calculation 94.7 mL/min (90-130) 05/04/23 04:38 Glucose 88 mg/dL (65-115) 05/04/23 04:38 Calculated Osmolality 283 mOsm/kg (285-295) L 05/04/23 04:38 Lactic Acid 1.0 mmol/L (0.5-2.2) 05/03/23 17:20 Calcium 8.6 mg/dL (8.5-10.5) 05/04/23 04:38 Magnesium 1.8 mg/dL (1.7-2.3) 05/04/23 04:38 Total Bilirubin 0.3 mg/dL (0.15-1.2) 05/04/23 04:38 AST 63 U/L (0-32) H 05/04/23 04:38 ALT 136 U/L (0-33) H 05/04/23 04:38 Alkaline Phosphatase 58 U/L (35-105) 05/04/23 04:38 Creatine Kinase 45 U/L (26-192) 05/03/23 17:20 Troponin T Gen 5 ng/L < 6 ng/L (0-10) 05/05/23 12:20 Troponin T Baseline < 6 ng/L (0-10) 05/03/23 17:20 Troponin T 120 Minute 6.00 ng/L (0-10) 05/03/23 20:16 Delta Troponin T 0 ABS# (0-10) 05/03/23 20:16 Troponin T Hi Sens 6Hr 6.20 ng/L (0-10) 05/03/23 23:17 Troponin T Hi Sens 6Hr Delta 0.20 ng/L (0-12) 05/03/23 23:17 Total Protein 5.8 g/dL (6.6-8.7) L 05/04/23 04:38 Albumin 3.5 g/dL (3.5-5.2) 05/04/23 04:38 Globulin 2.3 g/dL (1.3-4.6) 05/04/23 04:38 TSH 2.89 uIU/mL (0.27-4.20) 05/04/23 04:38 Prolactin 31.80 ng/mL (4.8-23.3) H 05/04/23 04:38 HCG, Qual Negative (Negative) 05/03/23 17:20 Urine Color Yellow (Yellow) 05/03/23 17:20 Urine Appearance Clear (CLEAR) 05/03/23 17:20 Urine pH 8 (5-7) H 05/03/23 17:20 Ur Specific [place] 1.010 (1.005-1.030) 05/03/23 17:20 Urine Protein Neg (Negative) 05/03/23 17:20 Urine Glucose (UA) Norm (Normal) 05/03/23 17:20 Urine Ketones Negative (Negative) 05/03/23 17:20 Urine Blood 2+ (Negative) H 05/03/23 17:20 Urine Nitrate Negative (Negative) 05/03/23 17:20 Urine Bilirubin Neg (Negative) 05/03/23 17:20 Prot Sulfosalicylic Acd Negative (Negative) 05/03/23 17:20 Urine Urobilinogen Norm mg/dL (Negative) 05/03/23 17:20 Ur Leukocyte Esterase Negative (Negative) 05/03/23 17:20 Urine RBC 0-4 /hpf (0-2) H 05/03/23 17:20 Urine WBC 0-4 /hpf (0-5) H 05/03/23 17:20 Ur Squamous Epith Cells 0-4 /hpf (0-5) H 05/03/23 17:20 Amorphous Sediment Not Reportable 05/03/23 17:20 Urine Bacteria Trace /hpf (NONE) 05/03/23 17:20 Ethyl Alcohol < 10 mg/dL (0-10) 05/03/23 23:17 Vitals Last Vital Signs Temp 98.3 F 05/06/23 08:00 Pulse 43 L 05/06/23 08:00 Resp 16 05/06/23 08:00 BP 90/57 05/06/23 08:00 Pulse Ox 95 05/06/23 07:52 O2 Del Method Room Air 05/06/23 07:52 O2 Flow Rate 2 05/06/23 08:00 Discharge Plan Discharge Patient Disposition: Home Condition: Stable Prescriptions: Continued aripiprazole 10 mg tablet 10 mg PO DAILY escitalopram oxalate 20 mg tablet 20 mg PO DAILY acyclovir 400 mg tablet 400 mg PO BID 30 Days Qty: 60 3RF buprenorphine-naloxone [Suboxone] 8-2 mg Film 1 film BUCCAL BID doxepin 10 mg Capsule 10 mg PO BEDTIME gabapentin 800 mg tablet 800 mg PO BID Discontinued prazosin 1 mg Capsule 1 mg PO QPM Discharge Orders: Discharge Order (Routine); Ordered 05/06/23 Ordered By: Irineo Alfaro Other Ambulatory Orders: ECG holter monitor 14 Days (Routine) Timeframe: 2 Weeks Facility: [facility] - Location: Radiology Ordered By: Irineo Alfaro Referrals: Angela Lincoln NP [Primary Care Provider] - Joselin Pandya MD [Physician] - 3 weeks Patient Instructions: Opioid Safety Discharge Attestations Time Spent in Discharge Care*: greater than 30 min Quality Metrics Clinical Quality Measures [ No reported AMI, CVA or VTE this stay] Coding Level of Care Code Acute Code for Chg Fwd Diagnoses Unresponsive episode R40.4 Syncope R55 Bradycardia, sinus R00.1 Secondary amenorrhea N91.1 Labile mood R45.86 Seizures R56.9
--- NOTE | 2023-05-06 10:48 | PM.PN ---
Subjective Subjective: Patient is going for stress test today Bradycardic events noted overnight Sinus bradycardia No active complaints Hemodynamically stable Vitals/I&O/Wt Last Vital Signs Temp 98.3 F 05/06/23 08:00 Pulse 43 L 05/06/23 08:00 Resp 16 05/06/23 08:00 BP 90/57 05/06/23 08:00 Pulse Ox 95 05/06/23 07:52 O2 Del Method Room Air 05/06/23 07:52 O2 Flow Rate 2 05/06/23 08:00 05/05/23 05/06/23 05/06/23 22:59 06:59 14:59 Intake Total 480 / 1320 1000 / 2320 Balance 480 / 1320 1000 / 2320 Physical Exam Narrative: GCS 15 Awake and alert Euvolemic Family at the bedside S1, S2 Currently on room air Data 05/04/23 04:38 05/04/23 04:38 A&P Assessment and plan (1) Unresponsive episode: (2) Syncope: Plan Treadmill stress test today Further plan will be made after her stress test report Plan to discontinue prazosin at the time of discharge Attestations Medical Necessity Statement*: Stress test today Coding Level of Care Code Acute Code for Chg Fwd Diagnoses Unresponsive episode R40.4 Syncope R55
== END 2023-05-06 16:07 | disposition home or self-care (01) ==
LOC: ER 19:05 → MEDSURG 20:03
PROVIDERS: Family Medicine; Student in an Organized Health Care Education/Training Program; Admitting Provider Student in an Organized Health Care Education/Training Program; Emergency Provider Emergency Medicine; PCP Nurse Practitioner Family; Visit Provider Internal Medicine
DX: R40.4 Transient alteration of awareness (principal); R55 Syncope and collapse; R00.1 Bradycardia, unspecified; N91.1 Secondary amenorrhea; R45.86 Emotional lability; R56.9 Unspecified convulsions; Z82.49 Family history of ischemic heart disease and other diseases of the circulatory system
CPT/HCPCS: 36415; 70450; 71045; 71275; 78452; 80053; 80307; 81001; 82550; 83605; 83735; 84146; 84443; 84484; 84703; 85025; 93005; 93306; 93880; 96361; 96374; 96375; 96376; 99285; A9500; G0378; J0573; J1885; J2765; J7030; J8499; Q9967

== ENCOUNTER 2023-07-02 18:39 | Emergency (ER) | payer SELFPAY ==
[2023-07-02 18:44] VITALS: BP 109/76; PULSE 84; RESP 16; TEMP 36.9; O2SAT 97; BMI 25.0
--- NOTE | 2023-07-02 19:24 | W.ED.URI ---
HPI - URI/Sore Throat General: Chief Complaint: Upper Respiratory Infection Stated Complaint: chest pain and back with a cold Time Seen by Provider: 07/02/23 18:52 History of Present Illness: 38-year-old female comes in today for complaints of cough and pain with deep inspiration. Patient appears nontoxic. Patient reports illness for 2 days. Patient is a tobacco smoker. Patient denies any routine medication use. Patient appears nontoxic. Patient appears in no pain. Associated symptoms: Deny diarrhea, fever(s), nausea or vomiting Review of Systems General: Reports: 10 or more systems reviewed and unremarkable except in HPI and below Const: Denies: fever(s) Resp: Reports: non-productive cough and pain on inspiration GI: Denies: nausea, vomiting, diarrhea or constipation : Denies: difficulty voiding Musc: Denies: back pain Skin/Breast: Denies: rash PFSH ED PFSH: Medical History (Updated 07/02/23 @ 19:40 by PALMA Lerma) Anxiety Bradycardia, sinus Depression Labile mood Secondary amenorrhea Seizures Syncope Unresponsive episode Surgical History No pertinent past surgical history Family History Mother Psychiatric illness depression Social History Smoking and tobacco/nicotine status: current every day tobacco/nicotine user cigarettes Packs smoked per day: 1 Alcohol intake: never Substance/Drug Use: former Household members: significant other Do you think of yourself as: Lesbian/Palmer/Homosexual Physical Exam Const: COMMON NORMALS: alert HENMT: COMMON NORMALS: normocephalic HEAD & SCALP: normocephalic MOUTH: Normal oral and palatal mucosa present Neck/C-Spine: COMMON NORMALS: full ROM Chest: COMMONS NORMALS: normal palpation of entire chest wall Resp: COMMON NORMALS: normal respiratory effort and clear to auscultation bilaterally AUSCULTATION: clear to auscultation bilaterally Cardio: COMMON NORMALS: regular rate and regular rhythm RATE: regular rate RHYTHM: regular rhythm GI: COMMON NORMALS: non-tender : COMMON NORMALS: Yes no CVA tenderness BLADDER/KIDNEY EXAM: Yes no CVA tenderness Back/Pelvis: COMMON NORMALS: no CVA tenderness and thoracic and lumbar spine normal to inspection Extremity: COMMON NORMALS: normal to inspection Neuro: SENSORIUM/ORIENTATION: Yes alert Skin: COMMON NORMALS: turgor normal GENERAL SKIN EXAM: turgor normal Course Vital Signs: Vital signs: Vital Signs Temperature 98.5 F 07/02/23 18:44 Pulse Rate 98 07/02/23 19:29 Respiratory Rate 16 07/02/23 18:44 Blood Pressure 98/68 07/02/23 19:29 Pulse Oximetry 100 07/02/23 19:29 Oxygen Delivery Me thod Room Air 07/02/23 18:44 MDM - URI/Sore Throat Medical Decision Making 38-year-old female comes in today for complaints of for cough and pain with deep inspiration. On exam lungs are clear to auscultation. Abdomen soft nontender. No CVA tenderness. Patient moves all extremities well. Vital signs are normal. Differential diagnosis includes not limited to costochondritis, pneumonia, acute bronchitis, upper respiratory infection. Due to patient's history of smoking and illness I believe she probably has a bout of acute bronchitis. Will go ahead and cover with a dose of dexamethasone and continue with doxycycline. Patient was encouraged plenty of water and fluids stop smoking. And follow-up with primary care. No radiology studies performed this visit Discharge Plan Discharge Patient Disposition: Home Clinical Impression: Bronchitis Condition: Stable Prescriptions: New doxycycline hyclate 100 mg capsule 100 mg PO BID 7 Days Qty: 14 0RF prednisone 20 mg tablet 20 mg PO DAILY 5 Days Qty: 5 0RF Rx Instructions: days 11-21 of therapy No Action aripiprazole 10 mg tablet 10 mg PO DAILY escitalopram oxalate 20 mg tablet 20 mg PO DAILY acyclovir 400 mg tablet 400 mg PO BID 30 Days Qty: 60 3RF gabapentin 800 mg tablet See Rx Instructions .ROUTE .COMPLEX Qty: 90 0RF Dose Instruction: TAKE 1 TABLET BY MOUTH THREE TIMES DAILY Rx Instructions: TAKE 1 TABLET BY MOUTH THREE TIMES DAILY buprenorphine-naloxone [Suboxone] 8-2 mg Film 1 film BUCCAL BID doxepin 10 mg Capsule 10 mg PO BEDTIME Discharge Orders: Discharge ED (Routine); Ordered 07/02/23 Ordered By: Anthony Wu Referrals: Angela Lincoln NP [Primary Care Provider] - Discharge Diet: Usual diet Discharge Activity: Increase activity as tolerated Patient Instructions: Acute Bronchitis (ED) Activity Restrictions/Additional Instructions: Take medications as directed, follow-up with primary care, return to ER for worsening symptoms such as high fever, inability to breathe, severe chest pain, or new concerns. Coding Level of Care Code ED Feather Baler for Kandi Caballero
--- NOTE | 2023-07-02 19:26 | PC.NURSE ---
discharge paperwork done on paper chart.
[2023-07-02 19:29] VITALS: BP 98/68; PULSE 98; O2SAT 100
[2023-07-02] MEDS: dexamethasone 10 mg/mL INJ (19:32)
[2023-07-02] MEDS: doxycycline 100 mg Tablet (19:32)
[2023-07-02 21:46] LABS: Adenovirus Not Detected (NOT DETECT); Chlamydia Pneumoniae Not Detected (NOT DETECT); Coronavirus 229E,HKU1,NL63,OC4 Not Detected (NOT DETECT); Human Metapneumovirus Not Detected (NOT DETECT); Human Rhinovirus/Enterovirus Not Detected (NOT DETECT); Influenza A Not Detected (NOT DETECT); Influenza A H1 Not Detected (NOT DETECT); Influenza A H1-2009 Not Detected (NOT DETECT); Influenza A H3 Not Detected (NOT DETECT); Influenza B Not Detected (NOT DETECT); Mycoplasma Pneumoniae Not Detected (NOT DETECT); Parainfluenza Virus Type 1 Not Detected (NOT DETECT); Parainfluenza Virus Type 2 Not Detected (NOT DETECT); Parainfluenza Virus Type 3 Not Detected (NOT DETECT); Parainfluenza Virus Type 4 Not Detected (NOT DETECT); Respiratory Syncytial Virus A Not Detected (NOT DETECT); Respiratory Syncytial Virus B Not Detected (NOT DETECT); SARS-COV-2 Not Detected (NOT DETECT)
== END 2023-07-02 19:34 | disposition home or self-care (01) ==
PROVIDERS: Emergency Provider Nurse Practitioner Family; PCP Nurse Practitioner Family
DX: J40 Bronchitis, not specified as acute or chronic (principal); F17.210 Nicotine dependence, cigarettes, uncomplicated
CPT/HCPCS: 87486; 87581; 87633; 99283

== ENCOUNTER 2023-07-04 15:43 | Emergency (ER) | payer SELFPAY ==
--- NOTE | 2023-07-04 15:56 | XRR_ITS ---
PROCEDURE INFORMATION: Exam: XR Chest Exam date and time: 07/04/2023 4:30 PM Age: 38 years old Clinical indication: Angina pectoris; Patient HX: Mediastinal chest pain; Cough; Smoker TECHNIQUE: Imaging protocol: Radiologic exam of the chest. Views: 1 view. COMPARISON: CT angio chest PE protcl [id number] 05/04/2023 3:03 AM FINDINGS: Lungs: Unremarkable. No consolidation. Pleural spaces: Unremarkable. No pleural effusion. No pneumothorax. Heart/Mediastinum: Unremarkable. No cardiomegaly. Bones/joints: Unremarkable. XR/XR chest 1V portable [id number] IMPRESSION: No acute findings.
[2023-07-04 15:57] VITALS: BP 110/74; PULSE 76; RESP 17; TEMP 36.9; O2SAT 94; BMI 25.0
[2023-07-04 16:36] LABS: Basophils % 0.3 %; Hematocrit 43.1 % (36-47); Lymphocytes # 1.1 10^3/uL (0.8-4.8); Lymphocytes % 8.2 %; Mean Corpuscular HGB Conc 32.9 g/dL (30-55); Mean Corpuscular Hemoglobin 30.1 pg (27-33); Mean Corpuscular Volume 91.5 fl (85-98); Mean Platelet Volume 9.9 fL (7.4-10.4); Monocytes # 0.6 10^3/uL (0.2-0.9); Monocytes % 4.5 %; Neutrophils # 11.71 10^3/uL (1.8-7.7); Neutrophils % 86.4 %; Nucleated Red Blood Cells % 0 %; Platelet Count 254 10^3/cmm (157-399); Red Blood Count 4.71 10^6/uL (3.85-5.65); Red Cell Distribution Width 13.7 % (12.1-15.1); White Blood Count 13.55 10^3/uL (3.29-11.43)
--- NOTE | 2023-07-04 16:51 | W.ED.CHESTPA ---
HPI - Chest Pain General: Chief Complaint: Chest Pain Stated Complaint: Chest pain Time Seen by Provider: 07/04/23 15:53 Source: patient Mode of arrival: ambulatory History of Present Illness: 38-year-old female presents emergency room with sharp chest pain worse with deep inhalation. Patient was seen earlier this week and started on doxycycline and steroids.started on doxycycline and steroids. Continues to have symptoms. Denies any abdominal pain. No radiation of the pain. No vomiting has had some loose stools no other family members have been sick no dysuria urgency or frequency no hematemesis no hemoptysis complaint: chest pain Onset (ago): day(s) Timing of current episode: episodic Prior episodes: Yes Pain location: substernal and left chest Severity: moderate Quality: sharp Relieving factors: nothing Exacerbating factors: inspiration Associated symptoms: Deny abdominal pain, diaphoresis, dyspnea, fever(s), leg edema, nausea, palpitations, sense of impending doom, syncope or vomiting Review of Systems Const: Denies: fever(s) or diaphoresis Card: Denies: palpitations or syncope Resp: Denies: dyspnea GI: Denies: abdominal pain, nausea or vomiting : Denies: dysuria, urinary frequency or urinary urgency Musc: Denies: neck pain or back pain Skin/Breast: Denies: rash PFSH ED PFSH: Medical History Anxiety Bradycardia, sinus Depression Labile mood Secondary amenorrhea Seizures Syncope Unresponsive episode Surgical History No pertinent past surgical history Family History Mother Psychiatric illness depression Social History Smoking and tobacco/nicotine status: current every day tobacco/nicotine user cigarettes Packs smoked per day: 1 Alcohol intake: never Substance/Drug Use: former Household members: significant other Do you think of yourself as: Lesbian/Palmer/Homosexual Physical Exam Const: COMMON NORMALS: no acute distress GENERAL APPEARANCE: cooperative and comfortable ORIENTATION/CONSCIOUSNESS: Yes awake, Yes oriented to person, Yes oriented to place and Yes oriented to time HENMT: COMMON NORMALS: normocephalic, atraumatic and hearing grossly normal bilaterally HEAD & SCALP: normocephalic and atraumatic Resp: COMMON NORMALS: normal respiratory effort, No retractions, No use of accessory muscles and clear to auscultation bilaterally AUSCULTATION: clear to auscultation bilaterally Cardio: COMMON NORMALS: regular rate, regular rhythm and No murmurs present (Cardio) RATE: regular rate RHYTHM: regular rhythm GI: COMMON NORMALS: Soft to palpation and No hepatosplenomegaly present AUSCULTATION: Yes normoactive bowel sounds PALPATION: Yes Soft to palpation, No Tenderness to palpation present (GI), No Guarding due to palpation present (GI) and Yes No hepatosplenomegaly present Extremity: COMMON NORMALS: normal to inspection, capillary refill normal, no clubbing, cyanosis or edema, no calf tenderness and no pedal edema Neuro: SENSORIUM/ORIENTATION: Yes oriented to person, Yes oriented to place and Yes oriented to time Skin: COMMON NORMALS: no rashes or lesions noted GENERAL SKIN EXAM: no rashes or lesions noted Course Vital Signs: Vital signs: Vital Signs Temperature 98.4 F 07/04/23 15:57 Pulse Rate 87 07/04/23 17:39 Respiratory Rate 16 07/04/23 17:39 Blood Pressure 110/74 07/04/23 15:57 Pulse Oximetry 94 07/04/23 17:39 Oxygen Delivery Me thod Room Air 07/04/23 15:57 MDM - Chest Pain Medical Decision Making Chest x-ray does not show any acute changes. Symptoms reproducible with deep inspiration and with palpation pain seems more musculoskeletal and pleuritic in nature continue the previously prescribed antibiotics and steroids tramadol as needed for pain can also use ibuprofen and follow-up with primary care if not improving no pneumonia on chest x-ray no pneumothorax no tachycardia no hypoxia Medical Records I reviewed the patient's medical records. Lab Data I reviewed the patient's lab results. 07/04/23 16:11 07/04/23 16:11 Radiology Impressions Chest X-Ray 07/04/23 15:56 IMPRESSION: No acute findings. Laboratory Results WBC 13.55 10^3/uL (3.29-11.43) H 07/04/23 16:11 RBC 4.71 10^6/uL (3.85-5.65) 07/04/23 16:11 Hgb 14.20 g/dL (11.27-16.99) 07/04/23 16:11 Hct 43.1 % (36-47) 07/04/23 16:11 MCV 91.5 fl (85-98) 07/04/23 16:11 MCH 30.1 pg (27-33) 07/04/23 16:11 MCHC 32.9 g/dL (30-55) 07/04/23 16:11 RDW 13.7 % (12.1-15.1) 07/04/23 16:11 Plt Count 254 10^3/cmm (157-399) 07/04/23 16:11 MPV 9.9 fL (7.4-10.4) 07/04/23 16:11 Neut % (Auto) 86.4 % 07/04/23 16:11 Lymph % (Auto) 8.2 % 07/04/23 16:11 [place] % (Auto) 4.5 % 07/04/23 16:11 Eos % (Auto) 0.0 % 07/04/23 16:11 Baso % (Auto) 0.3 % 07/04/23 16:11 Neut # (Auto) 11.71 10^3/uL (1.8-7.7) H 07/04/23 16:11 Lymph # (Auto) 1.1 10^3/uL (0.8-4.8) 07/04/23 16:11 [place] # (Auto) 0.6 10^3/uL (0.2-0.9) 07/04/23 16:11 Eos # (Auto) 0.0 10^3/uL (0.0-0.8) 07/04/23 16:11 Baso # (Auto) 0.0 10^3/uL (0.0-0.1) 07/04/23 16:11 Nucleated RBC % (auto) 0 % 07/04/23 16:11 Nucleated RBCs # 0.0 /100WBC 07/04/23 16:11 Sodium 139 mmol/L (136-145) 07/04/23 16:11 Potassium 3.9 mmol/L (3.5-5.1) 07/04/23 16:11 Chloride 108 mmol/L (98-107) H 07/04/23 16:11 Carbon Dioxide 19 mmol/L (22-29) L 07/04/23 16:11 Anion Gap 15.9 (5-19) 07/04/23 16:11 BUN 23 mg/dL (6-20) H 07/04/23 16:11 Creatinine 0.7 mg/dL (0.5-0.9) 07/04/23 16:11 GFR Calculation 94.2 mL/min (90-130) 07/04/23 16:11 Glucose 120 mg/dL (65-115) H 07/04/23 16:11 Calculated Osmolality 293 mOsm/kg (285-295) 07/04/23 16:11 Calcium 9.2 mg/dL (8.5-10.5) 07/04/23 16:11 Total Bilirubin 0.6 mg/dL (0.15-1.2) 07/04/23 16:11 AST 39 U/L (0-32) H 07/04/23 16:11 ALT 91 U/L (0-33) H 07/04/23 16:11 Alkaline Phosphatase 51 U/L (35-105) 07/04/23 16:11 Total Protein 6.8 g/dL (6.6-8.7) 07/04/23 16:11 Albumin 4.1 g/dL (3.5-5.2) 07/04/23 16:11 Globulin 2.7 g/dL (1.3-4.6) 07/04/23 16:11 All radiology interpretation(s) finalized by discharge Discharge Plan Discharge Patient Disposition: Home Clinical Impression: Pleuritic chest pain, Bronchitis Condition: Stable Prescriptions: New tramadol 50 mg tablet 50 mg PO Q6H PRN (Reason: pain) Qty: 15 0RF No Action aripiprazole 10 mg tablet 10 mg PO DAILY escitalopram oxalate 20 mg tablet 20 mg PO DAILY acyclovir 400 mg tablet 400 mg PO BID 30 Days Qty: 60 3RF gabapentin 800 mg tablet See Rx Instructions .ROUTE .COMPLEX Qty: 90 0RF Dose Instruction: TAKE 1 TABLET BY MOUTH THREE TIMES DAILY Rx Instructions: TAKE 1 TABLET BY MOUTH THREE TIMES DAILY buprenorphine-naloxone [Suboxone] 8-2 mg Film 1 film BUCCAL BID doxepin 10 mg Capsule 10 mg PO BEDTIME doxycycline hyclate 100 mg capsule 100 mg PO BID 7 Days Qty: 14 0RF prednisone 20 mg tablet 20 mg PO DAILY 5 Days Qty: 5 0RF Rx Instructions: days 11-21 of therapy Discharge Orders: Discharge ED (Routine); Ordered 07/04/23 Ordered By: Frederick Smith Referrals: Angela Lincoln, BARREL COOPER [Primary Care Provider] - Discharge Diet: Usual diet Discharge Activity: Increase activity as tolerated Patient Instructions: Pleurisy (ED), Opioid Safety, Pain Management Activity Restrictions/Additional Instructions: Thank you for choosing [facility] for your healthcare needs today. Please realize this is an emergency room and that we are providing you with a medical screening exam and this may not be complete and all inclusive of all the testing and or work up that you may need to determine your ailment or severity of your illness. It is very important that you follow up as instructed or that you return to the Emergency Department should you have concerns or if your condition changes or worsens in any way. You are seen today with pleuritic-like chest pain chest x-ray did not show any acute abnormalities. Your white count was slightly elevated this is likely from the steroids that you were given yesterday. Continue steroids and doxycycline you are given tramadol to use for the chest pain you can also use ibuprofen as needed. Coding Level of Care Code ED Asw/Asuw Tactical Air Controller for Kandi Caballero
[2023-07-04 16:52] LABS: Alanine Aminotransferase 91 U/L (0-33); Albumin Level 4.1 g/dL (3.5-5.2); Alkaline Phosphatase 51 U/L (35-105); Aspartate Amino Transferase 39 U/L (0-32); Blood Urea Nitrogen 23 mg/dL (6-20); Calcium 9.2 mg/dL (8.5-10.5); Carbon Dioxide 19 mmol/L (22-29); Chloride 108 mmol/L (98-107); Creatinine Clr Calc Pharmacy 106.6852; Globulin 2.7 g/dL (1.3-4.6); Glomerular Filtration Rate 94.2 mL/min (90-130); Glucose 120 mg/dL (65-115); Osmolality Calculated 293 mOsm/kg (285-295); Sodium 139 mmol/L (136-145); Total Bilirubin 0.6 mg/dL (0.15-1.2); Total Protein 6.8 g/dL (6.6-8.7)
[2023-07-04 16:54] LABS: Anion Gap 15.9 (5-19); Potassium 3.9 mmol/L (3.5-5.1)
[2023-07-04] MEDS: ketorolac 30 mg/mL INJ IM (17:25)
[2023-07-04 17:39] VITALS: PULSE 87; RESP 16; O2SAT 94
== END 2023-07-04 17:40 | disposition home or self-care (01) ==
PROVIDERS: Emergency Provider Family Medicine; PCP Nurse Practitioner Family
DX: R09.1 Pleurisy (principal); J40 Bronchitis, not specified as acute or chronic; F17.210 Nicotine dependence, cigarettes, uncomplicated
CPT/HCPCS: 36415; 71045; 80053; 85025; 96372; 99284; J1885

== ENCOUNTER 2023-10-29 01:04 | Emergency (ER) | payer BC, MEDICAID, SELFPAY ==
[2023-10-29 01:08] VITALS: BP 120/63; PULSE 76; RESP 16; TEMP 36.3; O2SAT 95; BMI 25.7
--- NOTE | 2023-10-29 01:19 | XRR_ITS ---
PROCEDURE INFORMATION: Exam: XR Chest Exam date and time: 10/29/2023 1:23 AM Age: 38 years old Clinical indication: Dyspnea TECHNIQUE: Imaging protocol: Radiologic exam of the chest. Views: 1 view. COMPARISON: CR XR chest 1V portable [id number] 07/04/2023 4:30 PM FINDINGS: Lungs: Clear, symmetrically inflated lungs. Pleural spaces: No pleural effusion. No pneumothorax. Heart/Mediastinum: Cardiac silhouette is normal in size for technique. Bones/joints: Age appropriate. XR/XR chest 1V portable [id number] IMPRESSION: No acute cardiopulmonary abnormality.
--- NOTE | 2023-10-29 01:29 | ECG_ITS ---
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 Measurements Intervals [place] Rate: 72 P: 68 WV: 133 QRS: 88 QRSD: 86 T: 74 QT: 403 QTc: 442 Interpretive Statements SINUS RHYTHM Compared to ECG 05/06/2023 01:03:56 Sinus bradycardia no longer present Electronically Signed On 10-29-2023 21:35:26 CDT by Laith Chaidez M.D. [id number]
[2023-10-29 01:48] LABS: Basophils % 0.3 %; Eosinophils # 0.4 10^3/uL (0.0-0.8); Eosinophils % 4.6 %; Hematocrit 42.7 % (36-47); Lymphocytes # 3.1 10^3/uL (0.8-4.8); Lymphocytes % 34.8 %; Mean Corpuscular Hemoglobin 31.6 pg (27-33); Mean Platelet Volume 9.7 fL (7.4-10.4); Monocytes # 0.6 10^3/uL (0.2-0.9); Monocytes % 6.4 %; Neutrophils # 4.74 10^3/uL (1.8-7.7); Neutrophils % 53.3 %; Nucleated Red Blood Cells % 0 %; Platelet Count 231 10^3/cmm (157-399); Red Blood Count 4.59 10^6/uL (3.85-5.65); Red Cell Distribution Width 12.4 % (12.1-15.1)
[2023-10-29 02:05] LABS: Add Urine Microscopic? YES; Bilirubin Urine Neg (Negative); Blood Urine 3+ (Negative); Glucose Urine UA Norm (Normal); Ketones Urine Negative (Negative); Leukocyte Esterase Urine Negative (Negative); Nitrate Urine Negative (Negative); Protein Urine Neg (Negative); Specific Gravity, Urine 1.015 (1.005-1.030); Urine Appearance SL Hazy (CLEAR); Urine Color Light yellow (Yellow); Urobilinogen Urine Neg (Negative); pH Urine 6 (5-7)
[2023-10-29 02:06] LABS: Add Urine Culture? No; Bacteria Urine TRACE /hpf
[2023-10-29 02:08] LABS: Amphetamines Screen Urine Negative (Negative); Barbiturates Screen Urine Negative (Negative); Benzodiazepines Screen Urine Negative (Negative); Cocaine Screen Urine Negative (Negative); Opiate Screen Urine Negative (Negative); PCP Screen Urine Negative (Negative); THC Screen Urine Negative (Negative)
[2023-10-29 02:18] LABS: Troponin(5th) Baseline < 6 ng/L (0-10)
[2023-10-29 02:24] LABS: Alanine Aminotransferase 17 U/L (0-33); Albumin Level 4.6 g/dL (3.5-5.2); Alkaline Phosphatase 66 U/L (35-105); Blood Urea Nitrogen 17 mg/dL (6-20); Calcium 9.1 mg/dL (8.5-10.5); Carbon Dioxide 21 mmol/L (22-29); Chloride 108 mmol/L (98-107); Glomerular Filtration Rate 94.2 mL/min (90-130); Glucose 114 mg/dL (65-115); NT Pro B Type Natriuretic Pept 40 pg/mL (0-125); Osmolality Calculated 292 mOsm/kg (285-295); Sodium 140 mmol/L (136-145); Total Bilirubin 0.2 mg/dL (0.15-1.2); Total Protein 6.6 g/dL (6.6-8.7)
[2023-10-29 02:29] LABS: Anion Gap 14.6 (5-19); Aspartate Amino Transferase 20 U/L (0-32); Potassium 3.6 mmol/L (3.5-5.1)
--- NOTE | 2023-10-29 02:39 | ED_ITS ---
HPI - SOB/Dyspnea 2 General: Chief Complaint: Shortness of Breath/Dyspnea Stated Complaint: sob Time Seen by Provider: 10/29/23 01:07 History of Present Illness: HPI Narrative: 38-year-old female presents emerged part with complaints of increased shortness of breath that became worse after lying down this evening. The patient does endorse cigarette use and history of bronchitis. She has had previous cardiac evaluation. She denies chest pain at present. She denies nausea vomiting or edema. She does endorse nonproductive cough over the previous 2 days. Review of Systems 2 General: Reports: 10 or more systems reviewed and unremarkable except in HPI and below Resp: Reports: dyspnea and non-productive cough PFSH ED 2 PFSH: Medical History Unresponsive episode Bradycardia, sinus Syncope Secondary amenorrhea Labile mood Anxiety Depression Seizures Surgical History No pertinent past surgical history Family History Mother Psychiatric illness depression Social History Smoking and tobacco/nicotine status: current every day tobacco/nicotine user cigarettes Packs smoked per day: 1 Alcohol intake: never Substance/Drug Use: former Household members: significant other Do you think of yourself as: Lesbian/Palmer/Homosexual Physical Exam 2 Narrative: EXAM NARRATIVE: Constitutional: the patient appears well nourished and of normal development. Vital signs as documented. No acute distress at present. Alert and oriented-to person, place, time and situation. Head, eyes, ears, nose, mouth, throat: Normocephalic, atraumatic. Pupils-equal, round, reactive to light. No scleral icterus. Normal-appearing external ears. Normal appearing nasal turbinates, no drainage. No obvious oral lesions, posterior oropharynx without erythema or exudates. Neck: Supple, trachea is midline, no lymphadenopathy, no jugular venous distension, thyromegaly, or carotid bruits. Carotid upstrokes are brisk bilaterally. Lungs: clear to auscultation to all lung horowitz. Symmetrical rise and fall of chest, no obvious signs of increased work of breathing at present. Cardiac: Regular rate and rhythm, positive S1, S2. No murmurs, rubs or gallops that I can appreciate Abdomen: Soft, non-tender to palpation, normal active bowel sounds to all quadrants. No palpable masses, no organomegaly and abdominal bruits. Extremities: 2+ pulses in the upper extremities that are equal bilaterally, 2+ pulses in the lower extremities that are equal bilaterally. Non-edematous. Moves all extremities well, sensation to all extremities are noted. Skin: Warm, dry, intact. Course 2 Vital Signs: Vital signs: Vital Signs Temperature 97.4 F L 10/29/23 02:49 Pulse Rate 76 10/29/23 02:49 Respiratory Rate 16 10/29/23 02:49 Blood Pressure 120/63 10/29/23 02:49 Pulse Oximetry 95 10/29/23 02:49 MDM - SOB/Dyspnea Medical Decision Making Physical exam completed and documented, I did obtain a CBC and CMP as well as a chest x-ray, twelve-lead EKG a BNP and cardiac enzyme. Patient has a cardiac history with previous echocardiogram and stress test that demonstrated wall motion abnormality. I suspect most likely as the patient continues to smoke cigarettes the differential diagnosis includes bronchitis, upper respiratory viral illness or approximately cardiac dysfunction to include congestive heart failure. Medical Records I reviewed the patient's medical records. Lab Data I reviewed the patient's lab results. 10/29/23 01:42 10/29/23 01:42 Labs/Radiology: Radiology Impressions Chest X-Ray 10/29/23 01:19 IMPRESSION: No acute cardiopulmonary abnormality. Laboratory Results WBC 8.90 10^3/uL (3.29-11.43) 10/29/23 01:42 RBC 4.59 10^6/uL (3.85-5.65) 10/29/23 01:42 Hgb 14.50 g/dL (11.27-16.99) 10/29/23 01:42 Hct 42.7 % (36-47) 10/29/23 01:42 MCV 93.0 fl (85-98) 10/29/23 01:42 MCH 31.6 pg (27-33) 10/29/23 01:42 MCHC 34.0 g/dL (30-55) 10/29/23 01:42 RDW 12.4 % (12.1-15.1) 10/29/23 01:42 Plt Count 231 10^3/cmm (157-399) 10/29/23 01:42 MPV 9.7 fL (7.4-10.4) 10/29/23 01:42 Neut % (Auto) 53.3 % 10/29/23 01:42 Lymph % (Auto) 34.8 % 10/29/23 01:42 [place] % (Auto) 6.4 % 10/29/23 01:42 Eos % (Auto) 4.6 % 10/29/23 01:42 Baso % (Auto) 0.3 % 10/29/23 01:42 Neut # (Auto) 4.74 10^3/uL (1.8-7.7) 10/29/23 01:42 Lymph # (Auto) 3.1 10^3/uL (0.8-4.8) 10/29/23 01:42 [place] # (Auto) 0.6 10^3/uL (0.2-0.9) 10/29/23 01:42 Eos # (Auto) 0.4 10^3/uL (0.0-0.8) 10/29/23 01:42 Baso # (Auto) 0.0 10^3/uL (0.0-0.1) 10/29/23 01:42 Nucleated RBC % (auto) 0 % 10/29/23 01:42 Nucleated RBCs # 0.0 /100WBC 10/29/23 01:42 Sodium 140 mmol/L (136-145) 10/29/23 01:42 Potassium 3.6 mmol/L (3.5-5.1) 10/29/23 01:42 Chloride 108 mmol/L (98-107) H 10/29/23 01:42 Carbon Dioxide 21 mmol/L (22-29) L 10/29/23 01:42 Anion Gap 14.6 (5-19) 10/29/23 01:42 BUN 17 mg/dL (6-20) 10/29/23 01:42 Creatinine 0.7 mg/dL (0.5-0.9) 10/29/23 01:42 GFR Calculation 94.2 mL/min (90-130) 10/29/23 01:42 Glucose 114 mg/dL (65-115) 10/29/23 01:42 Calculated Osmolality 292 mOsm/kg (285-295) 10/29/23 01:42 Calcium 9.1 mg/dL (8.5-10.5) 10/29/23 01:42 Total Bilirubin 0.2 mg/dL (0.15-1.2) 10/29/23 01:42 AST 20 U/L (0-32) 10/29/23 01:42 ALT 17 U/L (0-33) 10/29/23 01:42 Alkaline Phosphatase 66 U/L (35-105) 10/29/23 01:42 Troponin T Baseline < 6 ng/L (0-10) 10/29/23 01:42 NT-Pro-B Natriuret Pep 40 pg/mL (0-125) 10/29/23 01:42 Total Protein 6.6 g/dL (6.6-8.7) 10/29/23 01:42 Albumin 4.6 g/dL (3.5-5.2) 10/29/23 01:42 Globulin 2.0 g/dL (1.3-4.6) 10/29/23 01:42 Urine Color Light yellow (Yellow) 10/29/23 01:40 Urine Appearance Sl hazy (CLEAR) A 10/29/23 01:40 Urine pH 6 (5-7) 10/29/23 01:40 Ur Specific [place] 1.015 (1.005-1.030) 10/29/23 01:40 Urine Protein Neg (Negative) 10/29/23 01:40 Urine Glucose (UA) Norm (Normal) 10/29/23 01:40 Urine Ketones Negative (Negative) 10/29/23 01:40 Urine Blood 3+ (Negative) H 10/29/23 01:40 Urine Nitrate Negative (Negative) 10/29/23 01:40 Urine Bilirubin Neg (Negative) 10/29/23 01:40 Urine Urobilinogen Neg mg/dL (Negative) 10/29/23 01:40 Ur Leukocyte Esterase Negative (Negative) 10/29/23 01:40 Urine RBC 10-15 /hpf (0-2) H 10/29/23 01:40 Urine WBC None /hpf (0-5) 10/29/23 01:40 Ur Squamous Epith Cells 10-15 /hpf (0-5) H 10/29/23 01:40 Amorphous Sediment Not Reportable 10/29/23 01:40 Urine Bacteria Trace /hpf (NONE) 10/29/23 01:40 Urine Opiates Screen Negative ng/mL (Negative) 10/29/23 01:40 Ur Barbiturates Screen Negative ng/mL (Negative) 10/29/23 01:40 Ur Phencyclidine Scrn Negative ng/mL (Negative) 10/29/23 01:40 Ur Amphetamines Screen Negative ng/mL (Negative) 10/29/23 01:40 U Benzodiazepines Scrn Negative ng/mL (Negative) 10/29/23 01:40 Urine Cocaine Screen Negative ng/mL (Negative) 10/29/23 01:40 U Marijuana (THC) Screen Negative ng/mL (Negative) 10/29/23 01:40 All radiology interpretation(s) finalized by discharge Discharge Plan Discharge Patient Disposition: Home Clinical Impression: Bronchitis Condition: Stable Prescriptions: New prednisone 20 mg tablet 40 mg PO DAILY 5 Days Qty: 10 0RF albuterol sulfate 90 mcg/actuation HFA aerosol inhaler 2 inh inhalation Q6H PRN (Reason: shortness of breath or wheezing) Qty: 8.5 0RF No Action aripiprazole 10 mg tablet 10 mg PO DAILY escitalopram oxalate 20 mg tablet 20 mg PO DAILY acyclovir 400 mg tablet 400 mg PO BID 30 Days Qty: 60 3RF gabapentin 800 mg tablet See Rx Instructions .ROUTE .COMPLEX Qty: 90 1RF Dose Instruction: TAKE 1 TABLET BY MOUTH THREE TIMES DAILY Rx Instructions: TAKE 1 TABLET BY MOUTH THREE TIMES DAILY buprenorphine-naloxone [Suboxone] 8-2 mg Film 1 film BUCCAL BID doxepin 10 mg Capsule 10 mg PO BEDTIME tramadol 50 mg tablet 50 mg PO Q6H PRN (Reason: pain) Qty: 15 0RF Discharge Orders: Discharge ED (Routine); Ordered 10/29/23 Ordered By: Ryan Deng Referrals: Angela Lincoln NP [Primary Care Provider] - Discharge Diet: Usual diet Discharge Activity: Resume usual activity Patient Instructions: Opioid Safety, Pain Management Activity Restrictions/Additional Instructions: Activity Restrictions/Additional Instructions: Thank you for choosing [facility] for your healthcare needs today. Please realize that you were seen in the Emergency Department and that we are providing you with an emergency medical screening exam and this may not be a complete and all inclusive of all the testing and or medical work-up that you may need to determine your ailment or severity of your illness. It is very important that you follow-up as instructed with your Primary care provider or Specialist for additional evaluation and to discuss your medical treatment plan. Coding Level of Care Code ED Compliance Analyst for Kandi Caballero
[2023-10-29 02:49] VITALS: BP 120/63; PULSE 76; RESP 16; TEMP 36.3; O2SAT 95
== END 2023-10-29 02:49 | disposition home or self-care (01) ==
PROVIDERS: Emergency Provider Internal Medicine; PCP Nurse Practitioner Family
DX: J40 Bronchitis, not specified as acute or chronic (principal); F17.210 Nicotine dependence, cigarettes, uncomplicated
CPT/HCPCS: 71045; 80053; 80306; 81001; 83880; 84484; 85025; 93005; 99285

== ENCOUNTER 2024-03-15 19:49 | Emergency (ER) | payer BC, MEDICAID, SELFPAY ==
[2024-03-15 19:50] VITALS: BP 107/67; PULSE 65; RESP 16; TEMP 37.2; O2SAT 98; BMI 25.7
--- NOTE | 2024-03-15 19:56 | ECG_ITS ---
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 Measurements Intervals [place] Rate: 70 P: 67 [place]: 118 QRS: 79 QRSD: 82 T: 51 QT: 398 QTc: 431 Interpretive Statements SINUS RHYTHM WITH SHORT NH INTERVAL Compared to ECG 10/29/2023 01:29:38 Short NH interval now present Electronically Signed On 03-16-2024 14:09:36 CDT by Layo Cabrales M.D. [id number]
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
[2024-03-15 20:16] VITALS: BP 107/67; PULSE 60; RESP 18; O2SAT 95
--- NOTE | 2024-03-15 20:24 | ED_ITS ---
HPI - Chest Pain 2 General: Chief Complaint: Chest Pain Stated Complaint: CP Time Seen by Provider: 03/15/24 19:52 Source: patient History of Present Illness: Patient is a nontoxic 38-year-old female who presents to the ER with complaints of anterior sharp chest wall pain that she states she has had all day long . She states her pain has been intermittent and last for just a minute or 2 and then is relieved for about an hour or so and then recurs. She denies any exacerbating or alleviating factors. Her symptoms or not associated with any exertion. She does states she has had some mild shortness of breath today. She denies any fevers. No cough or congestion. Her primary concern for coming to the ER was her chest pain. She states she did have a stress test several months ago that was normal per her recollection. No known history of coronary disease. No history of PE or DVT. MD complaint: chest pain Associated symptoms: Reports dyspnea; Deny abdominal pain, diaphoresis, fever(s), nausea or vomiting Review of Systems 2 Const: Denies: fever(s), chills or diaphoresis Card: Reports: chest pain Resp: Reports: dyspnea GI: Denies: abdominal pain, nausea or vomiting Skin/Breast: Denies: rash Neuro: Denies: headache(s) PFSH ED 2 PFSH: Medical History Unresponsive episode Bradycardia, sinus Syncope Secondary amenorrhea Labile mood Anxiety Depression Seizures Surgical History No pertinent past surgical history Family History Mother Psychiatric illness depression Social History Smoking and tobacco/nicotine status: current every day tobacco/nicotine user cigarettes Packs smoked per day: 1 Alcohol intake: never Substance/Drug Use: former Household members: significant other Do you think of yourself as: Lesbian/Palmer/Homosexual Physical Exam 2 Const: COMMON NORMALS: no acute distress, average body habitus, alert and well nourished GENERAL APPEARANCE: cooperative ORIENTATION/CONSCIOUSNESS: Yes awake OTHER: Nontoxic 38-year-old female in no acute distress HENMT: COMMON NORMALS: normocephalic and atraumatic HEAD & SCALP: n ormocephalic and atraumatic Eye: COMMON NORMALS: conjunctivae normal CONJUNCTIVA: Yes conjunctivae normal Neck/C-Spine: GENERAL: Yes normal visual inspection Resp: COMMON NORMALS: normal respiratory effort, No retractions and No use of accessory muscles Cardio: COMMON NORMALS: regular rhythm and Peripheral pulses 2+ throughout RHYTHM: regular rhythm PERIPHERAL PULSES: Peripheral pulses 2+ throughout GI: COMMON NORMALS: Soft to palpation and non-tender PALPATION: Yes Soft to palpation Extremity: COMMON NORMALS: full ROM and no pedal edema Neuro: COMMON NORMALS: no focal motor deficits SENSORIUM/ORIENTATION: Yes alert Skin: COMMON NORMALS: no rashes or lesions noted GENERAL SKIN EXAM: no rashes or lesions noted Course 2 Vital Signs: Vital signs: Vital Signs Temperature 99.0 F 03/15/24 19:50 Pulse Rate 67 03/15/24 20:58 Respiratory Rate 18 03/15/24 20:58 Blood Pressure 111/65 03/15/24 20:58 Pulse Oximetry 95 03/15/24 20:58 Oxygen Delivery Me thod Room Air 03/15/24 20:58 MDM - Chest Pain Medical Decision Making Patient is a 38-year-old female who presents to the ER with complaints of a sharp left-sided anterior chest wall pain that she states has been going on all day long today intermittently. Her symptoms seem very atypical for ischemia. She is low risk for PE and PERC negative. Chest x-ray is negative for any acute infiltrates or processes. CBC and CMP are remarkable for some mild transaminitis. It looks like she has had some mildly elevated LFTs in the past however they have trended back down to normal. She has had some diarrhea recently. On exam she denies any significant abdominal pain and has no remarkable tenderness in the right upper quadrant. Negative Fiore sign and symptoms do not seem consistent with cholecystitis. Her EKG is sinus rhythm without any ischemic ST elevation or depressions. Troponin is normal. Given duration of symptoms being all day and a completely normal troponin I think this is sufficient for rule out. She had a normal stress test about a year ago. She was given a dose of Toradol and states her symptoms are improved here. I discussed her elevated AST and ALT with her and she states that she lives in [place] and has a primary care provider there and she can follow-up with them next week. I strongly encouraged her to indeed follow-up with her primary care provider to discuss her elevated liver enzymes and have those rechecked in a couple of weeks. She expresses understanding and is comfortable with discharge home. Lab Data I reviewed the patient's lab results. 03/15/24 20:29 03/15/24 20: Laboratory Results WBC 8.75 10^3/uL (3.29-11.43) 03/15/24 20: RBC 4.39 10^6/uL (3.85-5.65) 03/15/24 20: Hgb 13.90 g/dL (11.27-16.99) 03/15/24 20: Hct 39.1 % (36-47) 03/15/24: MCV 89.1 fl (85-98) 03/15/24 20: MCH 31.7 pg (27-33) 03/15/24: MCHC 35.5 g/dL (30-55) 03/15/24: RDW 13.0 % (12.1-15.1) 03/15/24: Plt Count 262 10^3/cmm (157-399) 03/15/24 20: MPV 9.5 fL (7.4-10.4) 03/15/24: Neut % (Auto) 51.7 % 03/15/24: Lymph % (Auto) 39.5 % 03/15/24 20: [place] % (Auto) 6.7 % 03/15/24: Eos % (Auto) 1.4 % 03/15/24 20: Baso % (Auto) 0.5 % 03/15/24: Neut # (Auto) 4.52 10^3/uL (1.8-7.7) 03/15/24: Lymph # (Auto) 3.5 10^3/uL (0.8-4.8) 03/15/24 20: [place] # (Auto) 0.6 10^3/uL (0.2-0.9) 03/15/24 20: Eos # (Auto) 0.1 10^3/uL (0.0-0.8) 08/04/24 20:29 Baso # (Auto) 0.0 10^3/uL (0.0-0.1) 03/15/24 20:29 Nucleated RBC % (auto) 0 % 03/15/24 20: Nucleated RBCs # 0.0 /100WBC 03/15/24 20:29 Sodium 144 mmol/L (136-145) 03/15/24 20:29 Potassium 3.7 mmol/L (3.5-5.1) 03/15/24 20: Chloride 108 mmol/L (98-107) H 03/15/24 20:29 Carbon Dioxide 24 mmol/L (22-29) 03/15/24 20: Anion Gap 15.7 (5-19) 03/15/24 20: BUN 8 mg/dL (6-20) 03/15/24 20: Creatinine 0.7 mg/dL (0.5-0.9) 03/15/24 20: GFR Calculation 94.2 mL/min (90-130) 03/15/24 20: Glucose 81 mg/dL (65-115) 03/15/24 20: Calculated Osmolality 295 mOsm/kg (285-295) 03/15/24 20: Calcium 9.3 mg/dL (8.5-10.5) 03/15/24 20: Total Bilirubin 0.8 mg/dL (0.15-1.2) 03/15/24 20:29 AST 171 U/L (0-32) H 03/15/24 20:29 ALT 351 U/L (0-33) H 03/15/24 20:29 Alkaline Phosphatase 61 U/L (35-105) 03/15/24 20:29 Troponin T Baseline < 6 ng/L (0-10) 03/15/24 20:29 Total Protein 7.3 g/dL (6.6-8.7) 03/15/24 20: Albumin 4.8 g/dL (3.5-5.2) 03/15/24 20: Globulin 2.5 g/dL (1.3-4.6) 03/15/24 20:29 Lipase 43 U/L (13-60) 03/15/24 20:29 XR interpretation done by ED provider, pending radiology final review ED provider radiology interpretation(s): No acute cardiothoracic findings. EKG Data EKG 1: Interpretation: Sinus rhythm with short RI interval. Rate of [address] elevation or depressions. Discharge Plan Discharge Patient Disposition: Home Clinical Impression: Atypical chest pain, Elevated liver enzymes Condition: Stable Prescriptions: No Action aripiprazole 10 mg tablet 10 mg PO DAILY escitalopram oxalate 20 mg tablet 20 mg PO DAILY acyclovir 400 mg tablet 400 mg PO BID 30 Days Qty: 60 3RF gabapentin 800 mg tablet See Rx Instructions .ROUTE .COMPLEX Qty: 90 1RF Dose Instruction: TAKE 1 TABLET BY MOUTH THREE TIMES DAILY Rx Instructions: TAKE 1 TABLET BY MOUTH THREE TIMES DAILY buprenorphine-naloxone [Suboxone] 8-2 mg Film 1 film BUCCAL BID doxepin 10 mg Capsule 10 mg PO BEDTIME tramadol 50 mg tablet 50 mg PO Q6H PRN (Reason: pain) Qty: 15 0RF albuterol sulfate 90 mcg/actuation HFA aerosol inhaler 2 inh inhalation Q6H PRN (Reason: shortness of breath or wheezing) Qty: 8.5 0RF Discharge Orders: Discharge ED (Routine); Ordered 03/15/24 Ordered By: Chance Poe Referrals: Angela Lincoln NP [Primary Care Provider] - Discharge Activity: Resume usual activity Patient Instructions: Opioid Safety, Pain Management, Chest Pain (ED) Activity Restrictions/Additional Instructions: Contact your primary care provider's office tomorrow to discuss follow-up and repeat liver function testing in a couple of weeks. Return to the ER for any new or worsening symptoms, increasing chest pain, shortness of breath, difficulty breathing, or any other concerns. Coding Level of Care Code ED Inside Tester for Kandi Caballero
[2024-03-15 20:33] LABS: Basophils % 0.5 %; Eosinophils # 0.1 10^3/uL (0.0-0.8); Eosinophils % 1.4 %; Hematocrit 39.1 % (36-47); Lymphocytes # 3.5 10^3/uL (0.8-4.8); Lymphocytes % 39.5 %; Mean Corpuscular HGB Conc 35.5 g/dL (30-55); Mean Corpuscular Hemoglobin 31.7 pg (27-33); Mean Corpuscular Volume 89.1 fl (85-98); Mean Platelet Volume 9.5 fL (7.4-10.4); Monocytes # 0.6 10^3/uL (0.2-0.9); Monocytes % 6.7 %; Neutrophils # 4.52 10^3/uL (1.8-7.7); Neutrophils % 51.7 %; Nucleated Red Blood Cells % 0 %; Platelet Count 262 10^3/cmm (157-399); Red Blood Count 4.39 10^6/uL (3.85-5.65); White Blood Count 8.75 10^3/uL (3.29-11.43)
[2024-03-15] MEDS: ketorolac 30 mg/mL INJ 15 MG IVP (20:42)
[2024-03-15] MEDS: sodium chloride 0.9% 1,000 ML 999 ML IV (20:42)
[2024-03-15 20:57] LABS: Troponin(5th) Baseline < 6 ng/L (0-10)
[2024-03-15 20:58] VITALS: BP 111/65; PULSE 67; RESP 18; O2SAT 95
[2024-03-15 21:00] LABS: Alanine Aminotransferase 351 U/L (0-33); Albumin Level 4.8 g/dL (3.5-5.2); Alkaline Phosphatase 61 U/L (35-105); Anion Gap 15.7 (5-19); Aspartate Amino Transferase 171 U/L (0-32); Blood Urea Nitrogen 8 mg/dL (6-20); Calcium 9.3 mg/dL (8.5-10.5); Carbon Dioxide 24 mmol/L (22-29); Chloride 108 mmol/L (98-107); Globulin 2.5 g/dL (1.3-4.6); Glomerular Filtration Rate 94.2 mL/min (90-130); Glucose 81 mg/dL (65-115); Lipase 43 U/L (13-60); Osmolality Calculated 295 mOsm/kg (285-295); Potassium 3.7 mmol/L (3.5-5.1); Sodium 144 mmol/L (136-145); Total Bilirubin 0.8 mg/dL (0.15-1.2); Total Protein 7.3 g/dL (6.6-8.7)
[2024-03-15 21:53] VITALS: BP 118/73; PULSE 59; RESP 18; O2SAT 96
== END 2024-03-15 21:52 | disposition home or self-care (01) ==
PROVIDERS: Emergency Provider Student in an Organized Health Care Education/Training Program; PCP Nurse Practitioner Family
DX: R07.89 Other chest pain (principal); R74.8 Abnormal levels of other serum enzymes; F17.210 Nicotine dependence, cigarettes, uncomplicated
CPT/HCPCS: 71045; 80053; 83690; 84484; 85025; 93005; 96361; 96374; 99285; J1885; J7030

== ENCOUNTER 2024-05-20 20:04 | Emergency (ER) | payer OTHER, BC, MEDICAID, SELFPAY ==
[2024-05-20 20:21] VITALS: BP 125/79; PULSE 74; RESP 16; TEMP 36.3; O2SAT 97
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
[2024-05-20 22:23] VITALS: BP 119/68; PULSE 73; O2SAT 97
[2024-05-20 23:03] VITALS: BP 129/77; PULSE 82; O2SAT 98
== END 2024-05-20 22:31 | disposition home or self-care (01) ==
PROVIDERS: Emergency Provider Physician Assistant; PCP Nurse Practitioner Family
DX: S20.214A Contusion of middle front wall of thorax, initial encounter (principal); S00.33XA Contusion of nose, initial encounter; F17.210 Nicotine dependence, cigarettes, uncomplicated; V89.2XXA Person injured in unspecified motor-vehicle accident, traffic, initial encounter
CPT/HCPCS: 70160; 71045; 99284

== ENCOUNTER 2024-06-11 00:36 | Inpatient (IN) | payer OTHER, BC, MEDICAID, SELFPAY ==
[2024-06-11] VITALS (7 sets, daily range): BP systolic 95–117; BP diastolic 55–77; PULSE 61–94; RESP 16–17; TEMP 36.7–37.2; O2SAT 93–98
--- NOTE | 2024-06-11 00:52 | ECG_ITS ---
[facility] Test Date: 2024-06-11 Pat Name: Tricia Guerra Department: Room: Gender: Female Manager Testing: : 1985 Requested By: Ana Amos Order Number: [id number] Reina MD: Tere Ann M.D. Measurements Intervals [place] Rate: 85 P: 60 WV: 149 QRS: 68 QRSD: 75 T: 48 QT: 368 QTc: 438 Interpretive Statements SINUS RHYTHM Compared to ECG 03/15/2024 19:56:37 Short WV interval no longer present Electronically Signed On 06-11-2024 12:10:12 CDT by Tere Ann M.D. [email or web address]
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
[2024-06-11 00:59] LABS: Bilirubin Urine Negative (Negative); Blood Urine Trace (Negative); Glucose Urine UA Negative (Normal); Ketones Urine Negative (Negative); Leukocyte Esterase Urine Negative (Negative); Nitrate Urine Negative (Negative); Protein Urine Negative (Negative); Specific Gravity, Urine 1.003 (1.005-1.030); Urine Appearance Clear (CLEAR); Urine Color Yellow (Yellow); Urobilinogen Urine 0.2 mg/dL (Negative); pH Urine 6.5 (5-7)
--- NOTE | 2024-06-11 01:05 | PC.NURSE ---
96 Hour Involuntary Hold Patient Rights have been read to the patient and a copy of the same has been given to her. Clinical Care Manager Amalia Marie was present at bedside at the time of presentation of Rights.
[2024-06-11 01:07] LABS: Amphetamines Screen Urine Negative (Negative); Barbiturates Screen Urine Negative (Negative); Benzodiazepines Screen Urine Negative (Negative); Cocaine Screen Urine Negative (Negative); Opiate Screen Urine Negative (Negative); PCP Screen Urine Negative (Negative); THC Screen Urine Negative (Negative)
[2024-06-11 01:15] LABS: Basophils % 0.2 %; Eosinophils # 0.1 10^3/uL (0.0-0.8); Eosinophils % 1.5 %; Hematocrit 42.1 % (36-47); Lymphocytes # 2.4 10^3/uL (0.8-4.8); Lymphocytes % 28.1 %; Mean Corpuscular HGB Conc 33.7 g/dL (30-55); Mean Corpuscular Hemoglobin 30.3 pg (27-33); Mean Corpuscular Volume 89.8 fl (85-98); Mean Platelet Volume 9.6 fL (7.4-10.4); Monocytes # 0.5 10^3/uL (0.2-0.9); Monocytes % 5.4 %; Neutrophils # 5.46 10^3/uL (1.8-7.7); Neutrophils % 64.4 %; Nucleated Red Blood Cells % 0 %; Platelet Count 254 10^3/cmm (157-399); Red Blood Count 4.69 10^6/uL (3.85-5.65); Red Cell Distribution Width 13.2 % (12.1-15.1); White Blood Count 8.48 10^3/uL (3.29-11.43)
[2024-06-11 01:24] LABS: Squamous Epithelial Cell Urine 0-4 /hpf (0-5)
[2024-06-11 01:35] LABS: Acetaminophen < 5.0 ug/mL (10-30); Alanine Aminotransferase 22 U/L (0-33); Albumin Level 4.2 g/dL (3.5-5.2); Alcohol Level 173 mg/dL (0-10); Alkaline Phosphatase 57 U/L (35-105); Anion Gap 15.7 (5-19); Aspartate Amino Transferase 16 U/L (0-32); Blood Urea Nitrogen 8 mg/dL (6-20); Calcium 8.5 mg/dL (8.5-10.5); Carbon Dioxide 19 mmol/L (22-29); Chloride 112 mmol/L (98-107); Creatinine Clr Calc Pharmacy 124.1295; Globulin 2.6 g/dL (1.3-4.6); Glomerular Filtration Rate 111.9 mL/min (90-130); Glucose 107 mg/dL (65-115); Osmolality Calculated 295 mOsm/kg (285-295); Potassium 3.7 mmol/L (3.5-5.1); Salicylate < 0.3 mg/dL (3-10); Sodium 143 mmol/L (136-145); Total Bilirubin 0.3 mg/dL (0.15-1.2); Total Protein 6.8 g/dL (6.6-8.7)
--- NOTE | 2024-06-11 08:52 | PC.PHAR ---
Pt states no longer takes the following medications: Acyclovir 400mg, Albuterol inhaler, Aripiprazole 10mg, Suboxone 8-2 films, Escitalopram 20mg, Tramadol 50mg, or Naltrexone 50mg. All were removed from med list.
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
[2024-06-11] MEDS: sertraline 50 mg Tablet 25 MG PO (11:36)
[2024-06-11] MEDS: gabapentin 400 mg Capsule 800 MG PO ×3 (13:12→22:10)
[2024-06-11] MEDS: prazosin 1 mg Capsule 2 MG PO (22:06)
[2024-06-11] MEDS: prazosin 1 mg Capsule PO (22:06)
[2024-06-11] MEDS: hyDROXYzine 25 mg Capsule 50 MG PO (22:11)
[2024-06-11] MEDS: trazodone 50 mg Tablet PO (22:11)
[2024-06-12 05:48] VITALS: BP 102/62; PULSE 63; RESP 16; TEMP 36.8; O2SAT 94
[2024-06-12 07:42] VITALS: BP 115/71; PULSE 75; RESP 18; TEMP 37; O2SAT 95
[2024-06-12] MEDS: gabapentin 400 mg Capsule 800 MG PO ×4 (08:17→21:30)
[2024-06-12] MEDS: sertraline 50 mg Tablet 25 MG PO (08:17)
[2024-06-12] MEDS: thiamine 100 mg Tablet PO (08:18)
[2024-06-12] MEDS: multivitamin therapeutic Tablet 1 TAB PO (08:18)
[2024-06-12] MEDS: folic acid 1 mg Tablet PO (08:18)
[2024-06-12] MEDS: prazosin 1 mg Capsule PO (08:18)
[2024-06-12 11:40] VITALS: BP 128/75; PULSE 71; RESP 16; TEMP 36.6; O2SAT 96
--- NOTE | 2024-06-12 15:05 | P.NPUPN_ITS ---
Subjective NPU 2 Subjective: Patient presented today reporting that she is doing okay. She reports that a significant part of her problem is that she was not taking care of her addiction and she had significant psychosocial challenges but had not been going to AA, or counseling or staying engaged with treatment and her medication as needed. She endorsed some difficulties with sleep but reported that things were improving overall with the medication changes and she denied any side effects at this time. Mental Status Exam 2 MSE Comments: The patient is a casually dressed white female who appeared somewhat masculine who was alert and oriented to person place time and situation. There was no evidence of any abnormal involuntary motor movements, tics, or tremors appreciated. There was evidence of prominent psychomotor retardation. Her speech was monotone in quality and normal in rate rhythm and volume. Her mood was described as depressed. Her affect was flat and mood congruent. Her thought process is linear logical and goal-directed. Her thought content showed evidence of suicidal ideation with a plan to overdose on medications. She denied any homicidal ideation. She did not appear to be responding to internal stimuli. There was no evidence of delusional thinking. She had appeared somewhat guarded and into the Dorst themes of hopelessness and worthlessness during the interview. She appeared somewhat hypervigilant. Her recent and remote memory were grossly intact. Her insight is impaired. Her judgment is poor. Her impulse control appeared limited at this time. Vitals/I&O/Wt Last Vital Signs Temp 97.9 F 06/12/24 11:40 Pulse 71 06/12/24 11:40 Resp 16 06/12/24 11:40 BP 128/75 06/12/24 11:40 Pulse Ox 96 06/12/24 11:40 O2 Del Method Room Air 06/12/24 11:40 Weight last 48 hrs Weight 72.575 kg Data NPU 06/11/24 01:00 06/11/24 01:00 A&P Assessment and plan (1) Major depressive disorder, recurrent episode: (2) Suicidal ideation: (3) Alcohol abuse: (4) PTSD (post-traumatic stress disorder): Plan Patient is a 39-year-old female with a previous history of PTSD, major depressive disorder, and panic attacks admitted with significant alcohol abuse currently endorsing suicidal ideation and worsening depression after a recent break-up 1 week ago. 1. Engage patient in individual milieu and group therapy.? 2. Encourage sober living treatment after discharge at the highest level of care to which he is willing to commit. 3. CIWA for alcohol withdrawal 4. TO-15 minute checks? 5. Will attempt to gather collateral information 6. Restarted outpatient medications other than doxepin. Hold klonopin now. Increase prazosin to target nightmares associated with PTSD. Added zoloft 25mg daily. Involuntary Hold Information 2 96 Hour Hold: 96 Hour Involuntary Admission: Yes 96 Hour Hold Ending Date: 06/17/24 96 Hour Hold Ending Time: 00:49 Other Hold: Hold End Date: 06/17/24 Attestations NPU 2 Medical Necessity Statement*: Inpatient hospitalization is medically necessary and?the clinically appropriate intervention at this time.? We will monitor/initiate medications and make changes as indicated. Likely length of stay 3-5 days. Coding Level of Care Code Acute Code for g Fwd Diagnoses Major depressive disorder, recurrent episode F33.9 Suicidal ideation R45.851 Alcohol abuse F10.10 PTSD (post-traumatic stress disorder) F43.10
[2024-06-12 16:00] VITALS: BP 104/66; PULSE 67; RESP 15; TEMP 36.7; O2SAT 97
[2024-06-12 19:41] VITALS: BP 113/76; PULSE 69; RESP 18; TEMP 36.7; O2SAT 98
[2024-06-12] MEDS: prazosin 1 mg Capsule 2 MG PO (21:30)
[2024-06-12] MEDS: nicotine 2 mg Gum BUCCAL (21:31)
[2024-06-12] MEDS: hyDROXYzine 25 mg Capsule 50 MG PO (21:31)
[2024-06-12] MEDS: trazodone 50 mg Tablet PO (21:31)
[2024-06-13] VITALS: BP 97/60; PULSE 60; RESP 16; TEMP 36.7; O2SAT 96
[2024-06-13 04:00] VITALS: BP 92/53; PULSE 66; RESP 16; TEMP 36.8; O2SAT 95
[2024-06-13 07:34] VITALS: BP 106/57; PULSE 63; RESP 16; TEMP 37; O2SAT 96
[2024-06-13] MEDS: sertraline 50 mg Tablet 25 MG PO (08:17)
[2024-06-13] MEDS: gabapentin 400 mg Capsule 800 MG PO ×4 (08:17→20:08)
[2024-06-13] MEDS: prazosin 1 mg Capsule PO (08:17)
[2024-06-13] MEDS: multivitamin therapeutic Tablet 1 TAB PO (08:17)
[2024-06-13] MEDS: folic acid 1 mg Tablet PO (08:17)
[2024-06-13] MEDS: thiamine 100 mg Tablet PO (08:17)
[2024-06-13 11:41] VITALS: BP 113/71; PULSE 86; RESP 16; TEMP 36.8; O2SAT 97
[2024-06-13 14:00] VITALS: BP 114/72; PULSE 75; RESP 16; TEMP 36.9; O2SAT 97
[2024-06-13] MEDS: hyDROXYzine 25 mg Capsule 50 MG PO ×2 (14:07→20:08)
[2024-06-13] MEDS: acetaminophen 325 mg Tablet 650 MG PO (14:07)
[2024-06-13] MEDS: prazosin 1 mg Capsule 2 MG PO (20:08)
[2024-06-13] MEDS: trazodone 50 mg Tablet PO ×2 (20:08→21:22)
[2024-06-13 20:29] VITALS: BP 116/75; PULSE 70; RESP 18; TEMP 36.8; O2SAT 96
--- NOTE | 2024-06-14 04:32 | P.NPUPN_ITS ---
Subjective NPU 2 Subjective: Patient presented today reporting that she is doing all right. She reports that she is feeling better from the standpoint of any withdrawal syndrome. We discussed the likelihood of increasing her Zoloft to 50 mg tomorrow. We continue to discuss her working with the social work team for appropriate discharge planning likely the beginning to middle of next week. She denied any side effects to medication. Mental Status Exam 2 MSE Comments: The patient is a casually dressed white female who appeared somewhat masculine who was alert and oriented to person place time and situation. There was no evidence of any abnormal involuntary motor movements, tics, or tremors appreciated. There was evidence of prominent psychomotor retardation. Her speech was monotone in quality and normal in rate rhythm and volume. Her mood was described as depressed. Her affect was flat and mood congruent. Her thought process is linear logical and goal-directed. Her thought content showed evidence of suicidal ideation with a plan to overdose on medications. She denied any homicidal ideation. She did not appear to be responding to internal stimuli. There was no evidence of delusional thinking. She had appeared somewhat guarded and into the Dorst themes of hopelessness and worthlessness during the interview. She appeared somewhat hypervigilant. Her recent and remote memory were grossly intact. Her insight is impaired. Her judgment is poor. Her impulse control appeared limited at this time. Vitals/I&O/Wt Last Vital Signs Temp 98.2 F 06/13/24 20:29 Pulse 70 06/13/24 20:29 Resp 18 06/13/24 20:29 BP 116/75 06/13/24 20:29 Pulse Ox 96 06/13/24 20:29 O2 Del Method Room Air 06/13/24 14:00 Data NPU 06/11/24 01:00 06/11/24 01:00 A&P Assessment and plan (1) Major depressive disorder, recurrent episode: (2) Suicidal ideation: (3) Alcohol abuse: (4) PTSD (post-traumatic stress disorder): Plan Patient is a 39-year-old female with a previous history of PTSD, major depressive disorder, and panic attacks admitted with significant alcohol abuse currently endorsing suicidal ideation and worsening depression after a recent break-up 1 week ago. 1. Engage patient in individual milieu and group therapy.? 2. Encourage sober living treatment after discharge at the highest level of care to which he is willing to commit. 3. CIWA for alcohol withdrawal 4. TO-15 minute checks? 5. Will attempt to gather collateral information 6. Restarted outpatient medications other than doxepin. Hold klonopin now. Increase prazosin to target nightmares associated with PTSD. Added zoloft 25mg daily. Involuntary Hold Information 2 96 Hour Hold: 96 Hour Involuntary Admission: Yes 96 Hour Hold Ending Date: 06/17/24 96 Hour Hold Ending Time: 00:49 Other Hold: Hold End Date: 06/17/24 Attestations NPU 2 Medical Necessity Statement*: Inpatient hospitalization is medically necessary and?the clinically appropriate intervention at this time.? We will monitor/initiate medications and make changes as indicated. Likely length of stay 2-4 days. Coding Level of Care Code Acute Code for g Fwd Diagnoses Major depressive disorder, recurrent episode F33.9 Suicidal ideation R45.851 Alcohol abuse F10.10 PTSD (post-traumatic stress disorder) F43.10
[2024-06-14 06:00] VITALS: BP 99/63; PULSE 69; RESP 16; TEMP 37; O2SAT 95
[2024-06-14] MEDS: multivitamin therapeutic Tablet 1 TAB PO (08:09)
[2024-06-14] MEDS: folic acid 1 mg Tablet PO (08:09)
[2024-06-14] MEDS: sertraline 50 mg Tablet 25 MG PO (08:09)
[2024-06-14] MEDS: prazosin 1 mg Capsule PO (08:09)
[2024-06-14] MEDS: gabapentin 400 mg Capsule 800 MG PO ×4 (08:09→20:33)
[2024-06-14] MEDS: thiamine 100 mg Tablet PO (08:09)
[2024-06-14 13:43] VITALS: BP 104/69; PULSE 79; RESP 16; TEMP 36.7; O2SAT 96
--- NOTE | 2024-06-14 15:08 | P.NPUPN_ITS ---
Subjective NPU 2 Subjective: Patient presents today reporting that she is feeling better. We discussed the risk benefits and alternatives of increasing the Zoloft to 50 mg p.o. daily. She reports she feels better from the standpoint of withdrawal. She denied any side effects to the medication and we discussed the possibility of discharge tomorrow. Mental Status Exam 2 MSE Comments: The patient is a casually dressed white female who appeared somewhat masculine who was alert and oriented to person place time and situation. There was no evidence of any abnormal involuntary motor movements, tics, or tremors appreciated. There was evidence of prominent psychomotor retardation. Her speech was monotone in quality and normal in rate rhythm and volume. Her mood was described as depressed. Her affect was flat and mood congruent. Her thought process is linear logical and goal-directed. Her thought content showed evidence of suicidal ideation with a plan to overdose on medications. She denied any homicidal ideation. She did not appear to be responding to internal stimuli. There was no evidence of delusional thinking. She had appeared somewhat guarded and into the Dorst themes of hopelessness and worthlessness during the interview. She appeared somewhat hypervigilant. Her recent and remote memory were grossly intact. Her insight is impaired. Her judgment is poor. Her impulse control appeared limited at this time. Vitals/I&O/Wt Last Vital Signs Temp 98.1 F 06/14/24 13:43 Pulse 79 06/14/24 13:43 Resp 16 06/14/24 13:43 BP 104/69 06/14/24 13:43 Pulse Ox 96 06/14/24 13:43 O2 Del Method Room Air 06/14/24 13:43 Weight last 48 hrs Weight 74.616 kg Data NPU 06/11/24 01:00 06/11/24 01:00 A&P Assessment and plan (1) Major depressive disorder, recurrent episode: (2) Suicidal ideation: (3) Alcohol abuse: (4) PTSD (post-traumatic stress disorder): Plan Patient is a 39-year-old female with a previous history of PTSD, major depressive disorder, and panic attacks admitted with significant alcohol abuse currently endorsing suicidal ideation and worsening depression after a recent break-up 1 week ago. 1. Engage patient in individual milieu and group therapy.? 2. Encourage sober living treatment after discharge at the highest level of care to which he is willing to commit. 3. CIWA for alcohol withdrawal 4. TO-15 minute checks? 5. Will attempt to gather collateral information 6. Restarted outpatient medications other than doxepin. Hold klonopin now. Increase prazosin to target nightmares associated with PTSD. Added zoloft 25mg daily. Will increase to 50 mg p.o. daily. Involuntary Hold Information 2 96 Hour Hold: 96 Hour Involuntary Admission: Yes 96 Hour Hold Ending Date: 06/17/24 96 Hour Hold Ending Time: 00:49 Other Hold: Hold End Date: 06/17/24 Attestations NPU 2 Medical Necessity Statement*: Inpatient hospitalization is medically necessary and?the clinically appropriate intervention at this time.? We will monitor/initiate medications and make changes as indicated. Likely length of stay 1-3 days. Coding Level of Care Code Acute Code for Chg Fwd Diagnoses Major depressive disorder, recurrent episode F33.9 Suicidal ideation R45.851 Alcohol abuse F10.10 PTSD (post-traumatic stress disorder) F43.10
[2024-06-14 20:14] VITALS: BP 121/81; PULSE 75; RESP 17; TEMP 37.2; O2SAT 97
[2024-06-14] MEDS: trazodone 50 mg Tablet PO ×2 (20:33→21:31)
[2024-06-14] MEDS: prazosin 1 mg Capsule 2 MG PO (20:33)
[2024-06-14] MEDS: hyDROXYzine 25 mg Capsule 50 MG PO (20:35)
[2024-06-15 06:00] VITALS: BP 104/61; PULSE 74; RESP 16; TEMP 37.2; O2SAT 94
[2024-06-15] MEDS: thiamine 100 mg Tablet PO (08:35)
[2024-06-15] MEDS: prazosin 1 mg Capsule PO (08:35)
[2024-06-15] MEDS: gabapentin 400 mg Capsule 800 MG PO ×2 (08:35→12:16)
[2024-06-15] MEDS: sertraline 50 mg Tablet PO (08:35)
[2024-06-15] MEDS: multivitamin therapeutic Tablet 1 TAB PO (08:35)
[2024-06-15] MEDS: folic acid 1 mg Tablet PO (08:35)
[2024-06-15] MEDS: acetaminophen 325 mg Tablet 650 MG PO (10:09)
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
[2024-06-15 11:35] VITALS: BP 118/73; PULSE 86; RESP 16; TEMP 36.8; O2SAT 95
[2024-06-15 11:38] VITALS: BP 118/73; PULSE 86; RESP 16; TEMP 36.8; O2SAT 95
== END 2024-06-15 12:54 | disposition home or self-care (01) | DRG 885 ==
LOC: ER 01:18 → NP 05:31
PROVIDERS: Admitting Provider Psychiatry & Neurology Psychiatry; Emergency Provider Emergency Medicine; PCP Nurse Practitioner Family; Visit Provider Psychiatry & Neurology Psychiatry
DX: F33.9 Major depressive disorder, recurrent, unspecified (principal); R45.851 Suicidal ideations; F10.10 Alcohol abuse, uncomplicated; F43.12 Post-traumatic stress disorder, chronic; G89.29 Other chronic pain; K21.9 Gastro-esophageal reflux disease without esophagitis; M54.40 Lumbago with sciatica, unspecified side; F17.210 Nicotine dependence, cigarettes, uncomplicated; F64.0 Transsexualism; F41.0 Panic disorder [episodic paroxysmal anxiety]; Z63.0 Problems in relationship with spouse or partner; Z81.8 Family history of other mental and behavioral disorders
CPT/HCPCS: 80053; 80306; 80307; 81001; 84443; 85025; 93005; 97150; 97165; 99285